=== PATIENT | male | born 2000 | race Caucasian/White ===

== ENCOUNTER 2023-01-03 20:32 | Inpatient (IN) ==
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
[2023-01-03 22:50] LABS: Appearance Urine Clear (Clear); Bilirubin Urine Negative (Negative); Blood Urine Negative (Negative); Color Urine Yellow; Glucose Urine UA Negative (Negative); Ketones Urine Trace (Negative); Leukocyte Esterase Urine Negative (Negative); Nitrite Urine Negative (Negative); Protein Urine Negative (Negative); Specific Gravity Urine 1.014 (1.000-1.030); Urobilinogen Urine Negative (Negative)
[2023-01-03 22:53] LABS: Basophils # (auto) 0.05 K/uL (0-0.2); Basophils % (auto) 0.9 %; Eosinophils # (auto) 0.13 K/uL (0-0.50); Eosinophils % (auto) 2.3 %; Hematocrit (blood only) 45.1 % (42.0-52.0); Hemoglobin 15.6 g/dl (14.0-18.0); Immature Granulocytes # (auto) 0.02 K/uL (0.01-0.20); Immature Granulocytes % (auto) 0.4 %; Lymphocytes # (auto) 2.43 K/uL (1.2-3.4); Lymphocytes % (auto) 42.9 %; Mean Corpuscular Hemoglobin 28.3 pg (25.0-34.0); Mean Corpuscular Hgb Conc 34.6 g/dL (32.0-36.0); Mean Corpuscular Volume 81.9 fL (80.0-100.0); Mean Platelet Volume 9.4 fL (9.4-12.4); Monocytes # (auto) 0.46 K/uL (0.11-0.59); Monocytes % (auto) 8.1 %; Neutrophils # (auto) 2.57 K/uL (1.40-6.50); Neutrophils % (auto) 45.4 %; Platelet Count 295 K/uL (130-400); RDW Standard Deviation 38.1 fL (36.4-46.3); Red Blood Count 5.51 M/uL (4.70-6.10); White Blood Count 5.66 K/ul (4.8-10.8)
[2023-01-03 23:09] LABS: Albumin Globulin Ratio 1.5 (0.9-2); Albumin Level 4.1 gm/dl (3.4-5.0); BUN Creatinine Ratio 11.5 (10-20); Bilirubin,Total 0.9 mg/dl (0.2-1.0); Calcium 8.6 mg/dl (8.6-10.3); Est GFR (African American) 130.4 ml/min; Est GFR (Non-African American) 112.5 ml/min; Globulin 2.8 gm/dl (2.5-4.0); Potassium 3.6 mmol/L (3.5-5.1); Total Protein 6.9 gm/dl (6.0-8.3)
[2023-01-03 23:14] LABS: Acetaminophen < 3 ug/ml (10-30); Salicylate < 3.0 mg/dl (3.0-30)
[2023-01-03 23:15] LABS: Amphetamines+Metham, Urine Neg (Neg); Barbiturates, Urine Neg (Neg); Benzodiazepine, Urine Neg (Neg); Cocaine, Urine Neg (Neg); MDMA (Ecstacy), Urine Neg (Neg); Methadone, Urine Neg (Neg); Opiate, Urine Neg (Neg); Phencyclidine, Urine Neg (Neg)
[2023-01-04] MEDS ORDERED: MAGNESIUM HYDROXIDE SUSP 30 ML UDC PO PRN (00:41)
[2023-01-04] MEDS ORDERED: SODIUM CHLORIDE 0.65% NA SOLN 45 ML (OCEAN) PRN (00:41)
[2023-01-04] MEDS ORDERED: hydrOXYzine HCl 25 MG TAB PO PRN ×2 (00:41)
[2023-01-04] MEDS ORDERED: BISMUTH SUBSALICYLATE LIQD 236 ML PO PRN (00:41)
[2023-01-04] MEDS ORDERED: ACETAMINOPHEN 325 MG TAB PO PRN (00:41)
[2023-01-04] MEDS ORDERED: ALUMINUM/MAGNESIUM SUSP 30 ML UDC PO PRN (00:41)
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
[2023-01-04 17:02] LABS: Vitamin D, 25 Hydrox 20.7 ng/ml (30-100)
--- NOTE | 2023-01-05 08:02 | Psychiatric Progress Note ---
Date of Service January 05, 2023 Impression / Recommendations Impression 22 y/o M, severely depressed, with recent hanging attempt. Despite reporting severe mood and anxiety symptoms, he is very resistant to considering medication treatment for reasons that are, at best, vague. He reports panic episodes as well as chronic, less episodic anxiety. He may well have PTSD, but his limited interaction and communication today make it impossible to assign that diagnosis with much confidence. 01/05/2023: Pt again lying curled in bed with the covers over his head on approach (though I have seen him out of bed at times). He makes very little eye contact and mumbles very quietly. Discussed his low Vitamin D level and the need to treat it, though I told him I very much doubt that doing this alone will have much direct effect on his mood. I again brought up antidepressant medication and my opinion that the reported severity of his depression strongly suggests the necessity of pharmacotherapy and not just psychotherapy (especially in light of his not having gotten much out of his 2 previous attempts at psychotherapy). Several members of the multidisciplinary treatment team noted that their assessments are relatively lacking in usual details because of how challenging it has been to get him to interact. (1) Major depressive disorder, single episode, severe without psychotic features: (2) Panic disorder: (3) Post traumatic stress disorder (PTSD): (4) Suicide attempt by hanging: Plan 01/04/2023: The patient was admitted to the [facility] ([facility] mental health unit) on q15 min checks (behavioral with suicide precautions) for safety. The patient will participate in group, recreational, and milieu therapies and will be offered additional individual and family sessions as clinically appropriate. 01/05/2023: * start ergocalciferol 50,000 IU twice weekly for 8 weeks * recommended trial of antidepressant medication, to which pt is not currently willing to agree 01/04/2023: I discussed a trial of SNRI (namely, duloxetine) since this should be effective for depression, panic, SELVIN, and (if present) PTSD. He was very disinterested in exploring medication options. He did ask for "a referral for CBT". 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, but somewhat half- heartedly, and attempted hanging (also somewhat half-heartedly) prior to presentation Risk Factors Assessment Male: Yes : Yes Do You Have Access To A Gun?: No Health Problems: No Mental Health Diagnoses: Yes Substance Use Disorders: Yes Previous Attempt: Yes Family History of Suicide: Yes Previous Psychiatric Hospitalization: No Hopelessness: Yes Protective Factors Assessment Employed: No Interval History Identifying Information CIPRIANO VU is a 22-year-old M who currently lives in an apartment, has a history of depression, and was admitted on 01/04/23 00:41 on a 201 voluntary commitment for suicide attempt. Chief Complaint "Grmphbl". Review of Systems Sleep Information Total Hours of Sleep: 6.5 Sleep Comments: early admit this AM Meal Information Percent Meal Consumed - Breakfast: 50 Percent Meal Consumed - Lunch: 75 Percent Meal Consumed - Dinner: 100 Subjective Subjective Patient was seen & assessed and interval progress reviewed with treatment team Physical Exam Psychiatric Orientation: oriented to person, oriented to place, oriented to time and + guarded Apperance: appropriately dressed, + disheveled and appeared stated age Eye Contact: + poor eye contact Motor Behavior: + psychomotor retardation Affect: + blunted affect Mood: + depressed mood Thought Process: + concrete thought process Thought Content: + cognitive distortions, reality based without delusions, + hopelessness, + worthlessness and + self deprecation Suicidal Thoughts: + reports suicidal thoughts, + reports suicidal plan and + reports suicidal intent Homicidal Thoughts: denies homicidal thoughts Hallucinations: no auditory hallucinations and no visual hallucinations Cognition: recent memory grossly intact and remote memory grossly intact; + attention not intact and + language not intact Estimated Intelligence: average estimated intelligence Insight: + limited insight Judgment: + poor judgement Vital Signs (Past 24 Hours) Last Vital Signs Temp 36.7 C 01/05/23 06:33 Pulse 91 H 01/05/23 06:34 Resp 16 01/05/23 06:33 BP 109/72 01/05/23 06:34 Pulse Ox 98 01/04/23 02:48 O2 Del Method Room Air 01/04/23 02:48 Results & Data ([facility]) Laboratory Results Laboratory Results - last 24 hr 01/04/23 15:58 Vitamin B12 230 25-OH Vitamin D Total 20.7 L Folate 15.52 Current Inpatient Medications Current Inpatient Medications: Current Inpatient Medications Acetaminophen (Acetaminophen 325 Mg Tab) 650 mg PO Q4H PRN PRN Reason: Headache or Minor Fever Stop: 02/03/23 00:40 Al Hydrox/Mg Hydrox/Simethicone (Aluminum/Magnesium Susp 30 Ml Udc) 30 ml PO Q4H PRN PRN Reason: GI Upset Stop: 02/03/23 00:40 Bismuth Subsalicylate (Bismuth Subsalicylate Liqd 236 Ml) 15 ml PO PRN PRN PRN Reason: Loose Stool Stop: 02/03/23 00:40 Ergocalciferol (Ergocalciferol 50,000 Units 1250 Mcg Cap) 50,000 units PO MoTh@0800 JUANJOSE Stop: 02/04/23 07:59 Hydroxyzine HCl (Hydroxyzine Hcl 25 Mg Tab) 50 mg PO HSZ PRN PRN Reason: Insomnia Stop: 02/03/23 00:40 Last Admin: 01/04/23 22:58 Dose: 50 mg Hydroxyzine HCl (Hydroxyzine Hcl 25 Mg Tab) 25 mg PO Q4H PRN PRN Reason: Anxiety Stop: 02/03/23 00:40 Magnesium Hydroxide (Magnesium Hydroxide Susp 30 Ml Udc) 30 ml PO DAILY PRN PRN Reason: Constipation Stop: 02/03/23 00:40 Sodium Chloride (Sodium Chloride 0.65% Na Soln 45 Ml ([place])) 1 - 2 sprays NA PRN PRN PRN Reason: Nasal Dryness/Congestion Stop: 02/03/23 00:40 Mental Health & Subst Abuse Tx Therapist Name of Therapist: KADEEM Post Discharge Appointments Primary Care Physician Name Of Family Doctor/PCP: JOSE (4) Suicide attempt by hanging Encounter type: initial encounter Qualified Code(s): T71.162A - Asphyxiation due to hanging, intentional self-harm, initial encounter
[2023-01-05] MEDS: ERGOCALCIFEROL 50,000 UNITS 1250 MCG CAP PO SCH (08:32)
--- NOTE | 2023-01-06 07:42 | Psychiatric Progress Note ---
Date of Service January 06, 2023 Impression / Recommendations Impression 22 y/o M, severely depressed, with recent hanging attempt. Despite reporting severe mood and anxiety symptoms, he is very resistant to considering medication treatment for reasons that are, at best, vague. He reports panic episodes as well as chronic, less episodic anxiety. He may well have PTSD, but his limited interaction and communication today make it impossible to assign that diagnosis with much confidence. 01/06/2023: Pt much more communicative today and apologizes for having been so reticent before. Pt speaks of his fraught relationship with his father at some length as well as the loss of his mother. 01/05/2023: Pt again lying curled in bed with the covers over his head on approach (though I have seen him out of bed at times). He makes very little eye contact and mumbles very quietly. Discussed his low Vitamin D level and the need to treat it, though I told him I very much doubt that doing this alone will have much direct effect on his mood. I again brought up antidepressant medication and my opinion that the reported severity of his depression strongly suggests the necessity of pharmacotherapy and not just psychotherapy (especially in light of his not having gotten much out of his 2 previous attempts at psychotherapy). Several members of the multidisciplinary treatment team noted that their assessments are relatively lacking in usual details because of how challenging it has been to get him to interact. (1) Major depressive disorder, single episode, severe without psychotic features: (2) Panic disorder: (3) Post traumatic stress disorder (PTSD): (4) Suicide attempt by hanging: Plan The patient was admitted to the [facility] on q15 min checks (behavioral with suicide precautions) for safety. The patient will participate in group, recreational, and milieu therapies and will be offered additional individual and family sessions as clinically appropriate. 01/06/2023: * continue ergocalciferol 50,000 IU twice weekly for 8 weeks * pt remains disinterested in pursuing medication treatment 01/05/2023: * start ergocalciferol 50,000 IU twice weekly for 8 weeks * recommended trial of antidepressant medication, to which pt is not currently willing to agree 01/04/2023: I discussed a trial of SNRI (namely, duloxetine) since this should be effective for depression, panic, SELVIN, and (if present) PTSD. He was very disinterested in exploring medication options. He did ask for "a referral for CBT". 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, but somewhat half- heartedly, and attempted hanging (also somewhat half-heartedly) prior to presentation Risk Factors Assessment Male: Yes : Yes Do You Have Access To A Gun?: No Health Problems: No Mental Health Diagnoses: Yes Substance Use Disorders: Yes Previous Attempt: Yes Family History of Suicide: Yes Previous Psychiatric Hospitalization: No Hopelessness: Yes Protective Factors Assessment Employed: No Interval History Identifying Information CIPRIANO VU is a 22-year-old M who currently lives in an apartment, has a history of depression, and was admitted on 01/04/23 00:41 on a 201 voluntary commitment for suicide attempt. Chief Complaint "I apologize for not wanting to talk yesterday". Review of Systems Sleep Information Total Hours of Sleep: 6 Sleep Comments: early admit this AM Meal Information Percent Meal Consumed - Breakfast: 75 Percent Meal Consumed - Lunch: 100 Percent Meal Consumed - Dinner: 100 Subjective Subjective Patient was seen & assessed and interval progress reviewed with treatment team Physical Exam Psychiatric Orientation: oriented to person, oriented to place, oriented to time and + guarded Apperance: appropriately dressed, + disheveled and appeared stated age Eye Contact: + fair eye contact Motor Behavior: + psychomotor retardation Speech: normal rate/rhythm/volume of speech Affect: + constricted affect Mood: + depressed mood Thought Process: + concrete thought process Thought Content: + cognitive distortions, reality based without delusions, + hopelessness, + worthlessness and + self deprecation Suicidal Thoughts: + reports suicidal thoughts, + reports suicidal plan and + reports suicidal intent Homicidal Thoughts: denies homicidal thoughts Hallucinations: no auditory hallucinations and no visual hallucinations Cognition: recent memory grossly intact, remote memory grossly intact, attention grossly intact and language grossly intact Estimated Intelligence: average estimated intelligence Insight: + limited insight Judgment: + poor judgement Vital Signs (Past 24 Hours) Last Vital Signs Temp 36.5 C 01/06/23 06:00 Pulse 84 01/06/23 06:35 Resp 14 01/06/23 06:00 BP 105/70 01/06/23 06:35 Pulse Ox 98 01/04/23 02:48 O2 Del Method Room Air 01/04/23 02:48 Results & Data ([facility]) Current Inpatient Medications Current Inpatient Medications: Current Inpatient Medications Acetaminophen (Acetaminophen 325 Mg Tab) 650 mg PO Q4H PRN PRN Reason: Headache or Minor Fever Stop: 02/03/23 00:40 Al Hydrox/Mg Hydrox/Simethicone (Aluminum/Magnesium Susp 30 Ml Udc) 30 ml PO Q4H PRN PRN Reason: GI Upset Stop: 02/03/23 00:40 Bismuth Subsalicylate (Bismuth Subsalicylate Liqd 236 Ml) 15 ml PO PRN PRN PRN Reason: Loose Stool Stop: 02/03/23 00:40 Ergocalciferol (Ergocalciferol 50,000 Units 1250 Mcg Cap) 50,000 units PO MoTh@0800 JUANJOSE Stop: 02/04/23 07:59 Last Admin: 01/05/23 08:32 Dose: 50,000 units Hydroxyzine HCl (Hydroxyzine Hcl 25 Mg Tab) 50 mg PO HSZ PRN PRN Reason: Insomnia Stop: 02/03/23 00:40 Last Admin: 01/04/23 22:58 Dose: 50 mg Hydroxyzine HCl (Hydroxyzine Hcl 25 Mg Tab) 25 mg PO Q4H PRN PRN Reason: Anxiety Stop: 02/03/23 00:40 Magnesium Hydroxide (Magnesium Hydroxide Susp 30 Ml Udc) 30 ml PO DAILY PRN PRN Reason: Constipation Stop: 02/03/23 00:40 Sodium Chloride (Sodium Chloride 0.65% Na Soln 45 Ml ([place])) 1 - 2 sprays NA PRN PRN PRN Reason: Nasal Dryness/Congestion Stop: 02/03/23 00:40 Mental Health & Subst Abuse Tx Therapist Name of Therapist: KADEEM Post Discharge Appointments Primary Care Physician Name Of Family Doctor/PCP: JSOE (4) Suicide attempt by hanging Encounter type: initial encounter Qualified Code(s): T71.162A - Asphyxiation due to hanging, intentional self-harm, initial encounter
--- NOTE | 2023-01-07 16:22 | Psychiatric Progress Note ---
Date of Service January 07, 2023 Impression / Recommendations Impression 22 y/o M, severely depressed, with recent hanging attempt. Diagnostically consistent with MDD, recurrent as well as SELVIN and possible PTSD with recent contribution of worsening mood in context of reminders of past trauma. 01/07/2023: Remains very depressed but starting to participate more and able to speak more about depression, recent alcohol use and past trauma. Not interested in any medications at this time but able to discuss options in case he changes his mind in the future. Needs a new PCP. (1) Major depressive disorder, single episode, severe without psychotic features: (2) Panic disorder: (3) Post traumatic stress disorder (PTSD): (4) Suicide attempt by hanging: Plan 01/07/2023: Continue current treatment plan, ongoing motivational interviewing. Agreeable to [facility] for CBT. 01/06/2023: * continue ergocalciferol 50,000 IU twice weekly for 8 weeks * pt remains disinterested in pursuing medication treatment 01/05/2023: * start ergocalciferol 50,000 IU twice weekly for 8 weeks * recommended trial of antidepressant medication, to which pt is not currently willing to agree 01/04/2023: The patient was admitted to the [facility] ([facility]) on q15 min checks (behavioral with suicide precautions) for safety. The patient will participate in group, recreational, and milieu therapies and will be offered additional individual and family sessions as clinically appropriate. I discussed a trial of SNRI (namely, duloxetine) since this should be effective for depression, panic, SELVIN, and (if present) PTSD. He was very disinterested in exploring medication options. He did ask for "a referral for CBT". Inventory Assets Strengths: voluntary, intelligent Needs: safety and stabilization, medication trial, additional coping skills, increased outpatient services Suicide Risk Level Suicide Risk Level: High-Moderate (q15 min suicide checks) (suicide attempt prior to admission with ongoing depression but feels safe in the hospital and agrees to alert nursing if he feels unsafe or requires additional support) Risk Factors Assessment Male: Yes : Yes Do You Have Access To A Gun?: No Health Problems: No Mental Health Diagnoses: Yes Substance Use Disorders: Yes Previous Attempt: Yes Family History of Suicide: Yes Previous Psychiatric Hospitalization: No Hopelessness: Yes Protective Factors Assessment Employed: No Interval History Identifying Information CIPRIANO VU is a 22-year-old M who currently lives in an apartment, has a history of depression, and was admitted on 01/04/23 00:41 on a 201 voluntary commitment for suicide attempt. Chief Complaint "I'm ok". Review of Systems Sleep Information Total Hours of Sleep: 6 Sleep Comments: early admit this AM Meal Information Percent Meal Consumed - Breakfast: 75 Percent Meal Consumed - Lunch: 100 Percent Meal Consumed - Dinner: 100 Subjective Subjective Patient was seen & assessed and interval progress reviewed with treatment team nursing and social work. Had family meeting with his dad and was able to discuss past trauma and his dad seemed supportive. Reviewed recent alcohol use which he was using to self-medicate so that he could feel "relief". Denies current cravings for alcohol and feels he will be able to avoid use after discharge without issue. Reviewed MAT options and therapy. Reviewed recent depressive symptoms which he feels were due to conflict with his dad because he was struggling to communicate about past trauma and recent stressor of his grandfather's cancer diagnosis. Not interested in any medication options but agreeable to discussion about SSRI vs SNRI vs Wellbutrin. Remains motivated for IOP and wants to work on "talking more with my family" before trying a medication. Some difficulty sleeping last night but attending groups today, less isolative to his room. Physical Exam Psychiatric Orientation: oriented x 3 and + guarded Apperance: appropriately dressed and appropriately groomed Eye Contact: + fair eye contact Motor Behavior: no abnormal motor movements Speech: normal rate/rhythm/volume of speech Affect: + constricted affect Mood: + depressed mood Thought Process: + concrete thought process Thought Content: + cognitive distortions, reality based without delusions and + hopelessness Suicidal Thoughts: denies suicidal plan and denies suicidal intent; + reports suicidal thoughts (intermittent) Homicidal Thoughts: denies homicidal thoughts Hallucinations: no auditory hallucinations and no visual hallucinations Cognition: recent memory grossly intact, remote memory grossly intact, attention grossly intact and language grossly intact Estimated Intelligence: average estimated intelligence Insight: + limited insight Judgment: + limited judgement Vital Signs (Past 24 Hours) Last Vital Signs Temp 36.4 C L 01/07/23 06:00 Pulse 83 01/07/23 06:50 Resp 16 01/07/23 06:00 BP 97/60 L 01/07/23 06:50 Pulse Ox 98 01/04/23 02:48 O2 Del Method Room Air 01/04/23 02:48 Results & Data ([facility]) Current Inpatient Medications Current Inpatient Medications: Current Inpatient Medications Acetaminophen (Acetaminophen 325 Mg Tab) 650 mg PO Q4H PRN PRN Reason: Headache or Minor Fever Stop: 02/03/23 00:40 Al Hydrox/Mg Hydrox/Simethicone (Aluminum/Magnesium Susp 30 Ml Udc) 30 ml PO Q4H PRN PRN Reason: GI Upset Stop: 02/03/23 00:40 Bismuth Subsalicylate (Bismuth Subsalicylate Liqd 236 Ml) 15 ml PO PRN PRN PRN Reason: Loose Stool Stop: 02/03/23 00:40 Ergocalciferol (Ergocalciferol 50,000 Units 1250 Mcg Cap) 50,000 units PO MoTh@0800 JAUNJOSE Stop: 02/04/23 07:59 Last Admin: 01/05/23 08:32 Dose: 50,000 units Hydroxyzine HCl (Hydroxyzine Hcl 25 Mg Tab) 50 mg PO HSZ PRN PRN Reason: Insomnia Stop: 02/03/23 00:40 Last Admin: 01/04/23 22:58 Dose: 50 mg Hydroxyzine HCl (Hydroxyzine Hcl 25 Mg Tab) 25 mg PO Q4H PRN PRN Reason: Anxiety Stop: 02/03/23 00:40 Magnesium Hydroxide (Magnesium Hydroxide Susp 30 Ml Udc) 30 ml PO DAILY PRN PRN Reason: Constipation Stop: 02/03/23 00:40 Sodium Chloride (Sodium Chloride 0.65% Na Soln 45 Ml ([place])) 1 - 2 sprays NA PRN PRN PRN Reason: Nasal Dryness/Congestion Stop: 02/03/23 00:40 Mental Health & Subst Abuse Tx Therapist Name of Therapist: KADEEM National Account Executive Name of National Account Executive: [employer]ocacy - Coco Peña Phone Number for National Account Executive: [phone] Date of Appointment with National Account Executive: 01/11/21 Time of Appointment with National Account Executive: 1:00 PM Case Management Appointment Comment: Virtual meeting invitation sent to your [employer] email. Post Discharge Appointments Primary Care Physician Name Of Family Doctor/PCP: Nj Primary Care Provider Appointment Comment: Call to establish new PCP if needed. Contact Information Discharge Discharge Address: [address], [address], [place] [address] (4) Suicide attempt by hanging Encounter type: initial encounter Qualified Code(s): T71.162A - Asphyxiation due to hanging, intentional self-harm, initial encounter
--- NOTE | 2023-01-08 08:38 | Psychiatric Progress Note ---
Date of Service January 08, 2023 Impression / Recommendations Impression 22 y/o M, severely depressed, with recent hanging attempt. Diagnostically consistent with MDD, recurrent as well as SELVIN and PTSD with recent contribution of worsening mood in context of reminders of past trauma. 01/08/2023: Depression starting to improve, still with anxiety but denies SI today and more interactive with peers. Continues to decline medication options, prefers to start with therapy. Ongoing clear trauma component to diagnostic picture. (1) Major depressive disorder, single episode, severe without psychotic features: (2) Panic disorder: (3) Post traumatic stress disorder (PTSD): (4) Suicide attempt by hanging: Plan 01/08/2023: Continue current tx plan. 01/07/2023: Continue current treatment plan, ongoing motivational interviewing. Agreeable to [facility] for CBT. 01/06/2023: * continue ergocalciferol 50,000 IU twice weekly for 8 weeks * pt remains disinterested in pursuing medication treatment 01/05/2023: * start ergocalciferol 50,000 IU twice weekly for 8 weeks * recommended trial of antidepressant medication, to which pt is not currently willing to agree 01/04/2023: The patient was admitted to the [facility] ([facility] [place]) on q15 min checks (behavioral with suicide precautions) for safety. The patient will participate in group, recreational, and milieu therapies and will be offered additional individual and family sessions as clinically appropriate. I discussed a trial of SNRI (namely, duloxetine) since this should be effective for depression, panic, SELVIN, and (if present) PTSD. He was very disinterested in exploring medication options. He did ask for "a referral for CBT". 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, but somewhat half-hea rtedly, and attempted hanging (also somewhat half-heartedly) prior to presentation Risk Factors Assessment Male: Yes : Yes Do You Have Access To A Gun?: No Health Problems: No Mental Health Diagnoses: Yes Substance Use Disorders: Yes Previous Attempt: Yes Family History of Suicide: Yes Previous Psychiatric Hospitalization: No Hopelessness: Yes Protective Factors Assessment Employed: No Interval History Identifying Information CIPRIANO VU is a 22-year-old M who currently lives in an apartment, has a history of depression, and was admitted on 01/04/23 00:41 on a 201 voluntary commitment for suicide attempt. Chief Complaint "A little anxious". Review of Systems Sleep Information Total Hours of Sleep: 6.5 Sleep Comments: Meal Information Percent Meal Consumed - Breakfast: 75 Percent Meal Consumed - Lunch: 100 Percent Meal Consumed - Dinner: 100 Subjective Subjective Patient was seen & assessed and interval progress reviewed with treatment team nursing and social work. Has been out of his room, participating in groups, watched a movie with peers, and more engaged overall. Had some difficulty sleeping last night in part due to fire alarm waking him up and bad dream about past trauma. Discussed night terrors and he has these ranging from once to a few times per week. Discussed option to try prazosin but he declines, prefers to use chamomile tea. Using green tea during the day to try to cope with anxiety. Has been having more "ruminative" thoughts today "about the future" in terms of school and "difficult conversations I'll be having with family". Finds distraction and working on puzzles helps. Discussed other coping strategies he could try. Denies SI. Physical Exam Psychiatric Orientation: oriented x 3 Apperance: appropriately dressed and appropriately groomed Eye Contact: good eye contact Motor Behavior: no abnormal motor movements Speech: normal rate/rhythm/volume of speech Affect: + anxious affect Mood: + depressed mood and + anxious mood Thought Process: goal directed thought process Thought Content: + cognitive distortions and reality based without delusions Suicidal Thoughts: denies suicidal thoughts, denies suicidal plan and denies suicidal intent Homicidal Thoughts: denies homicidal thoughts Hallucinations: no auditory hallucinations and no visual hallucinations Cognition: recent memory grossly intact, remote memory grossly intact, attention grossly intact and language grossly intact Estimated Intelligence: average estimated intelligence Insight: + limited insight Judgment: + fair judgement Vital Signs (Past 24 Hours) Last Vital Signs Temp 37.2 C 01/08/23 06:00 Pulse 84 01/08/23 06:00 Resp 18 01/08/23 06:00 BP 108/66 01/08/23 06:33 Pulse Ox 98 01/08/23 06:00 O2 Del Method Room Air 01/08/23 06:00 Results & Data ([facility]) Current Inpatient Medications Current Inpatient Medications: Current Inpatient Medications Acetaminophen (Acetaminophen 325 Mg Tab) 650 mg PO Q4H PRN PRN Reason: Headache or Minor Fever Stop: 02/03/23 00:40 Al Hydrox/Mg Hydrox/Simethicone (Aluminum/Magnesium Susp 30 Ml Udc) 30 ml PO Q4H PRN PRN Reason: GI Upset Stop: 02/03/23 00:40 Bismuth Subsalicylate (Bismuth Subsalicylate Liqd 236 Ml) 15 ml PO PRN PRN PRN Reason: Loose Stool Stop: 02/03/23 00:40 Ergocalciferol (Ergocalciferol 50,000 Units 1250 Mcg Cap) 50,000 units PO MoTh@0800 JUANJOSE Stop: 02/04/23 07:59 Last Admin: 01/05/23 08:32 Dose: 50,000 units Hydroxyzine HCl (Hydroxyzine Hcl 25 Mg Tab) 50 mg PO HSZ PRN PRN Reason: Insomnia Stop: 02/03/23 00:40 Last Admin: 01/04/23 22:58 Dose: 50 mg Hydroxyzine HCl (Hydroxyzine Hcl 25 Mg Tab) 25 mg PO Q4H PRN PRN Reason: Anxiety Stop: 02/03/23 00:40 Magnesium Hydroxide (Magnesium Hydroxide Susp 30 Ml Udc) 30 ml PO DAILY PRN PRN Reason: Constipation Stop: 02/03/23 00:40 Sodium Chloride (Sodium Chloride 0.65% Na Soln 45 Ml ([place])) 1 - 2 sprays NA PRN PRN PRN Reason: Nasal Dryness/Congestion Stop: 02/03/23 00:40 Mental Health & Subst Abuse Tx Therapist Name of Therapist: KADEEM Epic Willow Analyst Name of Epic Willow Analyst: [employer] Advoc[employer] - Coco Peña Phone Number for Epic Willow Analyst: [phone] Date of Appointment with Epic Willow Analyst: 01/11/21 Time of Appointment with Epic Willow Analyst: 1:00 PM Case Management Appointment Comment: Virtual meeting invitation sent to your [employer] email. Post Discharge Appointments Primary Care Physician Name Of Family Doctor/PCP: Nj Primary Care Provider Appointment Comment: Call to establish new PCP if needed. Contact Information Discharge Discharge Address: [address], [address], [place] [address] (4) Suicide attempt by hanging Encounter type: initial encounter Qualified Code(s): T71.162A - Asphyxiation due to hanging, intentional self-harm, initial encounter
[2023-01-09] MEDS: ERGOCALCIFEROL 50,000 UNITS 1250 MCG CAP PO SCH (09:00)
--- NOTE | 2023-01-09 16:26 | Psychiatric Progress Note ---
Date of Service January 09, 2023 Impression / Recommendations Impression 22 y/o M, severely depressed, with recent hanging attempt. Diagnostically consistent with MDD, recurrent as well as SELVIN and PTSD with recent contribution of worsening mood in context of reminders of past trauma. 01/09/2023: Mood continuing to slowly improve with no SI and lessening of anxiety today. Future-oriented. Able to speak more to triggers and driving factors for his suicide attempt. Motivated to start IOP and considering option for some family therapy. (1) Major depressive disorder, single episode, severe without psychotic features: (2) Panic disorder: (3) Post traumatic stress disorder (PTSD): (4) Suicide attempt by hanging: Plan 01/09/2023: Continue current treatment plan. 01/08/2023: Continue current tx plan. 01/07/2023: Continue current treatment plan, ongoing motivational interviewing. Agreeable to IOP for CBT. 01/06/2023: * continue ergocalciferol 50,000 IU twice weekly for 8 weeks * pt remains disinterested in pursuing medication treatment 01/05/2023: * start ergocalciferol 50,000 IU twice weekly for 8 weeks * recommended trial of antidepressant medication, to which pt is not currently willing to agree 01/04/2023: The patient was admitted to the [facility] ([facility] mental health unit) on q15 min checks (behavioral with suicide precautions) for safety. The patient will participate in group, recreational, and milieu t herapies and will be offered additional individual and family sessions as clinically appropriate. I discussed a trial of SNRI (namely, duloxetine) since this should be effective for depression, panic, SELVIN, and (if present) PTSD. He was very disinterested in exploring medication options. He did ask for "a referral for CBT". Inventory Assets Strengths: voluntary, intelligent Needs: safety and stabilization, medication trial, additional coping skills, increased outpatient services Suicide Risk Level Suicide Risk Level: Moderate (q15 min suicide checks) (suicide attempt prior to admission but denies SI, mood improving andfeels safe in the hospital and agrees to alert nursing if he feels unsafe or requires additional support) Risk Factors Assessment Male: Yes : Yes Do You Have Access To A Gun?: No Health Problems: No Mental Health Diagnoses: Yes Substance Use Disorders: Yes Previous Attempt: Yes Family History of Suicide: Yes Previous Psychiatric Hospitalization: No Hopelessness: Yes Protective Factors Assessment Employed: No Interval History Identifying Information CIPRIANO VU is a 22-year-old M who currently lives in an apartment, has a history of depression, and was admitted on 01/04/23 00:41 on a 201 voluntary commitment for suicide attempt. Chief Complaint "I'm pretty good". Review of Systems Sleep Information Total Hours of Sleep: 6.5 Meal Information Percent Meal Consumed - Breakfast: 100 Percent Meal Consumed - Lunch: 100 Percent Meal Consumed - Dinner: 100 Subjective Subjective Patient was seen & assessed and interval progress reviewed with treatment team nursing and social work. Attending all groups. Brighter affect. Feels his mood is "pretty good' today, still with some anxiety but less than yesterday. Reviewed what he feels has helped him feel less depressed compared to suicide attempt prior to admission and feels that getting back into a routine with eating three meals a day and sleeping a regular schedule has been very helpful. He also feels that his social isolation prior to admission was making things worse and has found socializing on the unit helpful. Also feels that he's start ed to address the tension with his dad after their family meeting and plans to continue talking with him more about his past trauma. Denies SI. Physical Exam Psychiatric Orientation: oriented x 3 Apperance: appropriately dressed and appropriately groomed Eye Contact: good eye contact Motor Behavior: no abnormal motor movements Speech: normal rate/rhythm/volume of speech Affect: + anxious affect Mood: + anxious mood Thought Process: goal directed thought process Thought Content: reality based without delusions Suicidal Thoughts: denies suicidal thoughts, denies suicidal plan and denies suicidal intent Homicidal Thoughts: denies homicidal thoughts Hallucinations: no auditory hallucinations and no visual hallucinations Cognition: recent memory grossly intact, remote memory grossly intact, attention grossly intact and language grossly intact Estimated Intelligence: average estimated intelligence Insight: + fair insight Judgment: + fair judgement Vital Signs (Past 24 Hours) Last Vital Signs Temp 36.6 C 01/09/23 06:26 Pulse 83 01/09/23 06:26 Resp 16 01/09/23 06:26 BP 101/61 01/09/23 06:26 Pulse Ox 98 01/08/23 06:00 O2 Del Method Room Air 01/08/23 06:00 Results & Data ([facility]) Current Inpatient Medications Current Inpatient Medications: Current Inpatient Medications Acetaminophen (Acetaminophen 325 Mg Tab) 650 mg PO Q4H PRN PRN Reason: Headache or Minor Fever Stop: 02/03/23 00:40 Al Hydrox/Mg Hydrox/Simethicone (Aluminum/Magnesium Susp 30 Ml Udc) 30 ml PO Q4H PRN PRN Reason: GI Upset Stop: 02/03/23 00:40 Bismuth Subsalicylate (Bismuth Subsalicylate Liqd 236 Ml) 15 ml PO PRN PRN PRN Reason: Loose Stool Stop: 02/03/23 00:40 Ergocalciferol (Ergocalciferol 50,000 Units 1250 Mcg Cap) 50,000 units PO MoTh@0800 JUANJOSE Stop: 02/04/23 07:59 Last Admin: 01/05/23 08:32 Dose: 50,000 units Hydroxyzine HCl (Hydroxyzine Hcl 25 Mg Tab) 50 mg PO HSZ PRN PRN Reason: Insomnia Stop: 02/03/23 00:40 Last Admin: 01/04/23 22:58 Dose: 50 mg Hydroxyzine HCl (Hydroxyzine Hcl 25 Mg Tab) 25 mg PO Q4H PRN PRN Reason: Anxiety Stop: 02/03/23 00:40 Magnesium Hydroxide (Magnesium Hydroxide Susp 30 Ml Udc) 30 ml PO DAILY PRN PRN Reason: Constipation Stop: 02/03/23 00:40 Sodium Chloride (Sodium Chloride 0.65% Na Soln 45 Ml ([place])) 1 - 2 sprays NA PRN PRN PRN Reason: Nasal Dryness/Congestion Stop: 02/03/23 00:40 Mental Health & Subst Abuse Tx Therapist Name of Therapist: KADEEM Enterprise Application Administrator Name of Enterprise Application Administrator: [facility] Pe[facility] Phone Number for Enterprise Application Administrator: [phone] Date of Appointment with Enterprise Application Administrator: 01/11/21 Time of Appointment with Enterprise Application Administrator: 1:00 PM Case Management Appointment Comment: Virtual meeting invitation sent to your [employer] email. Post Discharge Appointments Primary Care Physician Name Of Family Doctor/PCP: [place] Primary Care Provider Appointment Comment: Call to establish new PCP if needed. Contact Information Discharge Discharge Address: [address] [place] [address], [address], [facility] [id number] [phone]) Suicide attempt by hanging Encounter type: initial encounter Qualified Code(s): T71.162A - Asphyxiation due to hanging, intentional self-harm, initial encounter
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
== END 2023-01-10 10:51 | disposition home or self-care (01) | DRG 885 ==
LOC: ED 20:32 → SUATTDRO 01-04 00:41 → MERGE 01-04 00:41 → 3S 01-04 00:41

== ENCOUNTER 2023-03-25 13:35 | Inpatient (IN) ==
[2023-03-25] MEDS ORDERED: CEFEPIME 2,000 MG/20 ML VIAL IV STA (14:00)
[2023-03-25] MEDS ORDERED: SODIUM CHLORIDE 0.9% 1000ML 1,000 ML IV SCH (14:00)
[2023-03-25] MEDS ORDERED: dexAMETHasone**PF** 10 MG/ML VIAL IV ONE (14:11)
[2023-03-25] MEDS ORDERED: KETOROLAC TROMETHAMINE 15 MG/ML VIAL IV STA (14:13)
--- NOTE | 2023-03-25 14:18 | Emergency Department Note ---
Impression & Plan Sepsis, Fever, Acute tonsillitis, Hypokalemia, Hypomagnesemia, Leukocytosis ED Provider Note NAME: CIPRIANO VU AGE: 23 SEX: M : 2000 ARRIVES VIA: Walk-In INFORMANT: [Patient][father] ED PROVIDER(S): [Alexei De La Rosa MD] CHIEF COMPLAINT: Shortness of breath, flulike symptoms HISTORY OF PRESENT ILLNESS: The patient is a 23-year-old male who presents to the ER with 2 days of illness. He began yesterday with a sore throat, body aches and a headache. He went and had his hepatitis B vaccination. Towards evening, he felt quite a bit worse and came to this hospital. Work-up included laboratory testing, a bio fire, strep testing as well as a lumbar puncture. Patient had a white count of 14,000. His bio fire was negative. Strep testing was negative. [place] testing was negative. The lumbar puncture was negative. His illness was thought likely viral. He was discharged. As per the patient and his father. He has worsened since discharge earlier this morning. He has a high fever, he is fatigued, he has a hard time swallowing because of a very sore and swollen throat. He feels short of breath, has body aches. He did take some Motrin 8 hours ago and some Tylenol 2 hours ago. There has been no urinary complaint, no diarrhea, no reported vomiting. No sick contacts. PMHx/PSHx: See Below SOCIAL HISTORY: See Below. PHYSICAL EXAM: GENERAL: Patient is in no acute distress. HEENT: No acute trauma, normocephalic atraumatic, mucous membranes moist, no nasal congestion. Patient does have some ulcers on the side and underside of his tongue. His tonsils are markedly swollen with exudate and erythema. They are touching. No uvular edema. NECK: No stridor, mild bilateral anterior cervical adenopathy, no meningismus, trachea is midline. LUNGS: Clear to auscultation bilaterally, no wheeze, no rhonchi, breath sounds equal. HEART: Tachycardic, regular rhythm, no obvious murmurs. ABDOMEN: Soft, nontender, bowel sounds positive, no peritonitis. EXTREMITIES: No cyanosis or edema, full range of motion of all the joints without pain or difficulty, no signs for acute trauma. NEUROLOGIC: Oriented x 3, no acute motor or sensory deficits, no focal weakness. Somnolent. SKIN: No rash, no jaundice, no diaphoresis. DIFFERENTIAL DIAGNOSIS: Sepsis or bacteremia, peritonsillar abscess, tonsillitis, pneumonia, viral illness, tickborne illness, UTI EMERGENCY DEPARTMENT COURSE/PROCEDURES: Prior/Outside records reviewed: Previous ED note. ECG per my interpretation: Indication was tachycardia and possible sepsis. The ECG shows a sinus tachycardia with a rate of 108. There is some nonspecific ST change. There is no ST elevation, no PVCs. The QTc is 405. Continuous Cardiac Monitoring per my interpretation: An order was placed for continuous cardiac monitoring. The monitor shows a rate of 106 with sinus tachycardia. Critical Care Note: I have personally spent 49 minutes of critical care time in the direct management of this patient. This includes bedside care, interpretation of diagnostic studies, and testing, discussion with consultants, patient, and family members, and other required patient management activities. This 49 minutes is in excess of all separately billable procedures. MEDICAL DECISION MAKING: There is a moderate leukocytosis, this would be consistent with infection. A mild anemia was seen. There was a normal platelet count. Potassium and magnesium were both somewhat low. Lactic acid level was elevated consistent with dehydration and/or sepsis. There was no renal failure. No concerning liver enzyme elevation. Procalcitonin level was elevated consistent with bacterial infection. ECG showed a sinus tachycardia, no obvious ischemia. Cardiac enzyme testing x1 was not consistent with acute cardiac injury. Urinalysis did not show infection. Respiratory bio fire was completely negative. Monoscreen was negative. Lyme disease testing was equivocally pos itive. Tickborne peripheral smear was negative. Chest x-ray per my review did not show mediastinal widening or pneumonia. Soft tissue neck CT did not show any obvious abscess. The study was limited because of the lack of IV contrast. Significant tonsillar swelling and adenopathy was noted. On exam, the patient was febrile and tachycardic. He had significant tonsillar swelling and exudate. He had cervical adenopathy. The patient was aggressively managed. He was given IV saline, 2 L. This amount of fluid qualified as 30 cc/kg based on his actual body weight. He was given IV potassium and IV magnesium. He was given IV Zofran, he received IV cefepime as empiric antibiotic coverage. He received IV Toradol for pain, IV Decadron for the tonsillar swelling. The patient does feel improved, his heart rate has improved. The patient does meet criteria for sepsis. I spoke with the patient and his father. Hospitalization is indicated. I did speak with case management, the on-call hospitalist was consulted. DISPOSITION: Patient's presentation and findings warrant a hospital stay. Past Med/Surg History Medical History Encounter for pre-operative examination History of COVID-19 ~2 years ago, PCP test, not hosp; moderate symptoms>resolved. History of seizure "struck in the congregational during soccer as a child-had one seizure, no issues since then" Major depressive disorder, single episode, severe without psychotic features Panic disorder PTSD (post-traumatic stress disorder) Suicide attempt by hanging hospitalized at [facility] in 01/04/2023 Vitamin D deficiency Surgical History Hx of tooth extraction as child Family History Grandfather (Paternal) Lung cancer Grandmother (Paternal) Myocardial infarction Denies family history of Ovarian cancer Prostate cancer Diabetes Breast cancer Colorectal cancer Stroke Social History Smoking Status: Never smoker Second Hand Exposure: No; Do You Dip or Chew Tobacco: No; Tobacco Cessation Education Requested by Patient: No Hx Alcohol Use: Yes Alcohol type: beer Hx Substance Use: No Preferred Language: Icelandic Communication Ability: Effective Visual Impairment: No Limitations Hearing Ability: Normal 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 Cardiovascular Icu Required: Voice Beliefs That Will Affect Care: None marital status: Single Current Living Situation: Alone Current Living Situation Comment: college student current occupational status: student How many Children do You have: 0 Other Information That Helps Us Care for You: No Feels Safe at Home: Yes Safety Concerns: Feels Safe At This Time Childhood Exposure to Second-Hand Smoke: No caffeine: Yes Dental Care, Regularly: Yes Physical Activity Frequency: Daily Seatbelt Use: always Sunscreen Use: Yes Gender Identity: Male Assistive Devices: None Allergies Allergies Allergy/AdvReac Type Severity Reaction Status Date / Time shellfish derived Allergy Severe throat Verified 03/25/23 15:43 swelling [place] Allergy Severe Swelling Verified 03/25/23 15:43 of Lip/Tongue/Throat Home Meds Home Medications Medication Instructions Recorded Confirmed hydroxyzine HCl 25 mg tablet 25 mg PO BID PRN Insomnia 02/09/23 03/25/23 sucralfate 1 gram tablet 1 g BID 03/24/23 03/25/23 acetaminophen 500 mg tablet 1,000 mg PO Q6H PRN Pain 03/25/23 03/25/23 (Tylenol Extra Strength) ibuprofen 200 mg tablet 400 mg PO Q6H PRN Fever Or Pain 03/25/23 03/25/23 Previous Rx's Medication Instructions Recorded ergocalciferol (vitamin D2) 1,250 1,250 mcg PO .COMPLEX #20 caps 03/07/23 mcg (50,000 unit) capsule Results & Data (ED) Vital Signs Vital Signs - 24 hr 03/25/23 13:39 03/25/23 14:15 03/25/23 14:15 Temperature 39.2 C H Temperature Source Temporal Artery Scan Pulse Rate 116 H 110 H Pulse Rate [Right Finger] 110 H Pulse Rate from SpO2 Sensor Pulse Rhythm Regular Pulse Strength Normal Respiratory Rate 28 H 26 H 26 H Respiratory Effort / Characteristics Labored Respiratory Depth Normal Blood Pressure 114/52 L Blood Pressure [Right Arm] 96/48 L Blood Pressure Mean 72 Blood Pressure Mean [Right Arm] 64 Blood Pressure Position Sitting Pulse Oximetry 99 96 96 Oxygen Delivery Method Room Air Room Air Room Air Sepsis Recent Fever Within 48 Hours No Sepsis New/Unexplained Change in Mental Status No Sepsis Action Taken by Nursing Physician Notified 03/25/23 14:17 03/25/23 14:40 03/25/23 15:06 Temperature Temperature Source Pulse Rate 111 H Pulse Rate [Right Finger] 110 H 98 H Pulse Rate from SpO2 Sensor Pulse Rhythm Pulse Strength Respiratory Rate 26 H 24 Respiratory Effort / Characteristics Non-Labored Respiratory Depth Normal Blood Pressure Blood Pressure [Right Arm] 96/48 L 88/50 L Blood Pressure Mean Blood Pressure Mean [Right Arm] 64 62 Blood Pressure Position Pulse Oximetry 96 96 Oxygen Delivery Method Room Air Room Air Sepsis Recent Fever Within 48 Hours Sepsis New/Unexplained Change in Mental Status Sepsis Action Taken by Nursing 03/25/23 15:19 03/25/23 14:10 03/25/23 14:12 Temperature Temperature Source Pulse Rate 109 H Pulse Rate [Right Finger] 92 H Pulse Rate from SpO2 Sensor Pulse Rhythm Pulse Strength Respiratory Rate 22 23 Respiratory Effort / Characteristics Non-Labored Respiratory Depth Normal Blood Pressure 96/48 L Blood Pressure [Right Arm] 90/37 L Blood Pressure Mean 61 Blood Pressure Mean [Right Arm] 54 Blood Pressure Position Pulse Oximetry 96 Oxygen Delivery Method Room Air Sepsis Recent Fever Within 48 Hours Sepsis New/Unexplained Change in Mental Status Sepsis Action Taken by Nursing 03/25/23 14:12 03/25/23 14:20 03/25/23 14:31 Temperature Temperature Source Pulse Rate 108 H 105 H 104 H Pulse Rate [Right Finger] Pulse Rate from SpO2 Sensor 108 H 105 H 105 H Pulse Rhythm Pulse Strength Respiratory Rate 20 24 18 Respiratory Effort / Characteristics Respiratory Depth Blood Pressure Blood Pressure [Right Arm] Blood Pressure Mean Blood Pressure Mean [Right Arm] Blood Pressure Position Pulse Oximetry 96 97 96 Oxygen Delivery Method Sepsis Recent Fever Within 48 Hours Sepsis New/Unexplained Change in Mental Status Sepsis Action Taken by Nursing 03/25/23 14:40 03/25/23 14:50 03/25/23 15:00 Temperature Temperature Source Pulse Rate 102 H 97 H 98 H Pulse Rate [Right Finger] Pulse Rate from SpO2 Sensor 102 H 98 H 98 H Pulse Rhythm Pulse Strength Respiratory Rate 24 17 24 Respiratory Effort / Characteristics Respiratory Depth Blood Pressure Blood Pressure [Right Arm] Blood Pressure Mean Blood Pressure Mean [Right Arm] Blood Pressure Position Pulse Oximetry 96 97 96 Oxygen Delivery Method Sepsis Recent Fever Within 48 Hours Sepsis New/Unexplained Change in Mental Status Sepsis Action Taken by Nursing 03/25/23 15:05 03/25/23 15:05 03/25/23 15:10 Temperature Temperature Source Pulse Rate 97 H 102 H Pulse Rate [Right Finger] Pulse Rate from SpO2 Sensor 98 H 103 H Pulse Rhythm Pulse Strength Respiratory Rate 20 20 Respiratory Effort / Characteristics Respiratory Depth Blood Pressure 88/50 L Blood Pressure [Right Arm] Blood Pressure Mean 68 Blood Pressure Mean [Right Arm] Blood Pressure Position Pulse Oximetry 96 95 Oxygen Delivery Method Sepsis Recent Fever Within 48 Hours Sepsis New/Unexplained Change in Mental Status Sepsis Action Taken by Nursing 03/25/23 15:19 03/25/23 15:19 03/25/23 15:20 Temperature Temperature Source Pulse Rate 96 H 90 Pulse Rate [Right Finger] Pulse Rate from SpO2 Sensor 94 H 90 Pulse Rhythm Pulse Strength Respiratory Rate 21 20 Respiratory Effort / Characteristics Respiratory Depth Blood Pressure 90/37 L Blood Pressure [Right Arm] Blood Pressure Mean 56 Blood Pressure Mean [Right Arm] Blood Pressure Position Pulse Oximetry 96 96 Oxygen Delivery Method Sepsis Recent Fever Within 48 Hours Sepsis New/Unexplained Change in Mental Status Sepsis Action Taken by Nursing 03/25/23 15:30 03/25/23 15:40 03/25/23 15:50 Temperature Temperature Source Pulse Rate 89 94 H 89 Pulse Rate [Right Finger] Pulse Rate from SpO2 Sensor 89 93 H 89 Pulse Rhythm Pulse Strength Respiratory Rate 21 20 20 Respiratory Effort / Characteristics Respiratory Depth Blood Pressure Blood Pressure [Right Arm] Blood Pressure Mean Blood Pressure Mean [Right Arm] Blood Pressure Position Pulse Oximetry 96 96 96 Oxygen Delivery Method Sepsis Recent Fever Within 48 Hours Sepsis New/Unexplained Change in Mental Status Sepsis Action Taken by Nursing 03/25/23 15:53 03/25/23 15:53 Temperature Temperature Source Pulse Rate 90 Pulse Rate [Right Finger] Pulse Rate from SpO2 Sensor 88 Pulse Rhythm Pulse Strength Respiratory Rate 21 Respiratory Effort / Characteristics Respiratory Depth Blood Pressure 100/61 Blood Pressure [Right Arm] Blood Pressure Mean 69 Blood Pressure Mean [Right Arm] Blood Pressure Position Pulse Oximetry 97 Oxygen Delivery Method Sepsis Recent Fever Within 48 Hours Sepsis New/Unexplained Change in Mental Status Sepsis Action Taken by Longterm Medications Current Medication List: was personally reviewed by me Laboratory Data Attestation: I reviewed the patient's lab results. 03/25/23 14:13 03/25/23 14:13 Lab Results 03/25/23 03/25/23 03/25/23 Range/Units 14:13 14:13 14:13 WBC 17.10 H (4.8-10.8) K/ul RBC 4.74 (4.70-6.10) M/uL Hgb 13.8 L (14.0-18.0) g/dl Hct 39.2 L (42.0-52.0) % MCV 82.7 (80.0-100.0) fL MCH 29.1 (25.0-34.0) pg MCHC 35.2 (32.0-36.0) g/dL RDW Std Deviation 37.6 (36.4-46.3) fL RDW Coeff of Paul 12.4 (11.5-14.5) % Plt Count 181 (130-400) K/uL MPV 10.0 (9.4-12.4) fL Immature Gran % (Auto) 0.8 % Neut % (Auto) 88.3 % Lymph % (Auto) 4.4 % [place] % (Auto) 6.2 % Eos % (Auto) 0.0 % Baso % (Auto) 0.3 % Neut # (Auto) 15.10 H (1.40-6.50) K/uL Lymph # (Auto) 0.76 L (1.2-3.4) K/uL [place] # (Auto) 1.06 H (0.11-0.59) K/uL Eos # (Auto) 0.00 (0-0.50) K/uL Baso # (Auto) 0.05 (0-0.2) K/uL Immature Gran # (Auto) 0.13 (0.01-0.20) K/uL Sodium 136 (136-145) mmol/L Potassium 3.0 L (3.5-5.1) mmol/L Chloride 108 H (98-107) mmol/L Carbon Dioxide 21 (21-32) mmol/L Anion Gap 7 (3-11) BUN 12 (6-23) mg/dl Creatinine 1.15 (0.6-1.4) mg/dl Est Cr Clr Drug Dosing 84.4 ml/min Est GFR ( Amer) 104.1 ml/min Est GFR (Non-Af Amer) 89.8 ml/min BUN/Creatinine Ratio 10.4 (10-20) Glucose 187 H (70-99(Fasting)) mg/dl Lactate (0.4-2.0) mmol/L Calcium 8.5 L (8.6-10.3) mg/dl Magnesium 1.6 L (1.7-2.4) mg/dl Total Bilirubin 0.7 (0.2-1.0) mg/dl Direct Bilirubin 0.1 (0-0.2) mg/dl AST 26 (13-39) U/L ALT 17 (7-52) U/L Alkaline Phosphatase 44 (34-104) U/L Troponin I High Sens 4.2 (0-20) pg/ml Total Protein 6.2 (6.0-8.3) gm/dl Albumin 3.7 (3.4-5.0) gm/dl Procalcitonin 6.53 H (0-0.5) ng/ml Adenovirus (PCR) (NotDetected) Anaplasma Smear See Comment Babesia Smear See Comment B. pertussis DNA (PCR) (NotDetected) B.parapertussis DNA PCR (NotDetected) Lyme Disease IgG Ab Negative (Negative) Lyme Disease IgM Ab Equivocal A (Negative) C. pneumoniae DNA (PCR) (NotDetected) Coronavirus OC43 (PCR) (NotDetected) Coronavirus HKU1 (PCR) (NotDetected) Coronavirus 229E (PCR) (NotDetected) SARS-CoV-2 (PCR) (NotDetected) Coronavirus NL63 (PCR) (NotDetected) Monoscreen Negative (Negative) Human Metapneumovir PCR (NotDetected) Influenza Type A (PCR) (NotDetected) Influenza Type B (PCR) (NotDetected) M. pneumoniae (PCR) (NotDetected) Parainfluenza 1 (PCR) (NotDetected) Parainfluenza 2 (PCR) (NotDetected) Parainfluenza 3 (PCR) (NotDetected) Parainfluenza 4 (PCR) (NotDetected) RSV (PCR) (NotDetected) Entero/Rhino (PCR) (NotDetected) 03/25/23 03/25/23 Range/Units 14:22 14:25 WBC (4.8-10.8) K/ul RBC (4.70-6.10) M/uL Hgb (14.0-18.0) g/dl Hct (42.0-52.0) % MCV (80.0-100.0) fL MCH (25.0-34.0) pg MCHC (32.0-36.0) g/dL RDW Std Deviation (36.4-46.3) fL RDW Coeff of Paul (11.5-14.5) % Plt Count (130-400) K/uL MPV (9.4-12.4) fL Immature Gran % (Auto) % Neut % (Auto) % Lymph % (Auto) % [place] % (Auto) % Eos % (Auto) % Baso % (Auto) % Neut # (Auto) (1.40-6.50) K/uL Lymph # (Auto) (1.2-3.4) K/uL [place] # (Auto) (0.11-0.59) K/uL Eos # (Auto) (0-0.50) K/uL Baso # (Auto) (0-0.2) K/uL Immature Gran # (Auto) (0.01-0.20) K/uL Sodium (136-145) mmol/L Potassium (3.5-5.1) mmol/L Chloride (98-107) mmol/L Carbon Dioxide (21-32) mmol/L Anion Gap (3-11) BUN (6-23) mg/dl Creatinine (0.6-1.4) mg/dl Est Cr Clr Drug Dosing ml/min Est GFR ( Amer) ml/min Est GFR (Non-Af Amer) ml/min BUN/Creatinine Ratio (10-20) Glucose (70-99(Fasting)) mg/dl Lactate 3.1 H* (0.4-2.0) mmol/L Calcium (8.6-10.3) mg/dl Magnesium (1.7-2.4) mg/dl Total Bilirubin (0.2-1.0) mg/dl Direct Bilirubin (0-0.2) mg/dl AST (13-39) U/L ALT (7-52) U/L Alkaline Phosphatase (34-104) U/L Troponin I High Sens (0-20) pg/ml Total Protein (6.0-8.3) gm/dl Albumin (3.4-5.0) gm/dl Procalcitonin (0-0.5) ng/ml Adenovirus (PCR) Not Detected (NotDetected) Anaplasma Smear Babesia Smear B. pertussis DNA (PCR) Not Detected (NotDetected) B.parapertussis DNA PCR Not Detected (NotDetected) Lyme Disease IgG Ab (Negative) Lyme Disease IgM Ab (Negative) C. pneumoniae DNA (PCR) Not Detected (NotDetected) Coronavirus OC43 (PCR) Not Detected (NotDetected) Coronavirus HKU1 (PCR) Not Detected (NotDetected) Coronavirus 229E (PCR) Not Detected (NotDetected) SARS-CoV-2 (PCR) Not Detected (NotDetected) Coronavirus NL63 (PCR) Not Detected (NotDetected) Monoscreen (Negative) Human Metapneumovir PCR Not Detected (NotDetected) Influenza Type A (PCR) Not Detected (NotDetected) Influenza Type B (PCR) Not Detected (NotDetected) M. pneumoniae (PCR) Not Detected (NotDetected) Parainfluenza 1 (PCR) Not Detected (NotDetected) Parainfluenza 2 (PCR) Not Detected (NotDetected) Parainfluenza 3 (PCR) Not Detected (NotDetected) Parainfluenza 4 (PCR) Not Detected (NotDetected) RSV (PCR) Not Detected (NotDetected) Entero/Rhino (PCR) Not Detected (NotDetected) Administered Medications Hydrocodone Bitart/Acetaminophen (Acetaminophen/Hydrocodone Elix 15 Ml/Cup) 10 ml PO Q6H PRN PRN Reason: pain Stop: 04/08/23 20:20 Last Admin: 03/25/23 20:58 Dose: 10 ml Documented By: ASM Chlorhexidine Gluconate (Chlorhexidine Gluconate 0.12% 480 Ml) 15 ml MT TID [facility] Stop: 04/24/23 20:59 Last Admin: 03/25/23 20:59 Dose: 15 ml Documented By: ASM Lactated Ringer's (Lr) 1,000 mls @ 125 mls/hr IV .Q8H [facility] Stop: 04/24/23 18:29 Last Admin: 03/25/23 18:47 Dose: 125 mls/hr Documented By: OEdward Dexamethasone 4 mg/ Syringe 1 mls @ 1 mls/min IV BID JUANJOSE Stop: 04/24/23 20:59 Last Admin: 03/25/23 20:28 Dose: 1 mls/min Documented By: ASM Discontinued Medications Dexamethasone Sodium Phosphate (DexamethasonePf 10 Mg/Ml Vial) 10 mg IV NOW ONE Stop: 03/25/23 14:12 Last Admin: 03/25/23 14:31 Dose: 10 mg Documented By: NRB Cefepime HCl (Maxipime) 2,000 mg in 20 mls @ 5 mls/min IV NOW STA; Protocol Stop: 03/25/23 14:03 Last Admin: 03/25/23 14:32 Dose: 5 mls/min Documented By: NRB Sodium Chloride (Nss 1000ml) 1,000 mls @ 999 mls/hr IV .Q1H1M JUANJOSE Stop: 03/25/23 15:00 Last Infusion: 03/25/23 15:13 Dose: 0 mls/hr Documented By: Admin: 03/25/23 14:12 Dose: 999 mls/hr Documented By: LINDSEY Sodium Chloride (Nss 1000ml) 1,000 mls @ 999 mls/hr IV .Q1H1M ONE Stop: 03/25/23 15:19 Last Infusion: 03/25/23 17:33 Dose: 0 mls/hr Documented By: Admin: 03/25/23 14:31 Dose: 999 mls/hr Documented By: NRB Potassium Chloride (K Arnoldo / Wtr) 10 meq in 100 mls @ 100 mls/hr IV ONE ONE Stop: 03/25/23 16:05 Last Infusion: 03/25/23 16:12 Dose: 0 mls/hr Documented By: Admin: 03/25/23 15:12 Dose: 100 mls/hr Documented By: NRB Magnesium Sulfate/Dextrose (Magnesium Sulfate / D5w) 1 gm in 100 mls @ 100 mls/hr IV NOW STA Stop: 03/25/23 16:05 Last Infusion: 03/25/23 16:19 Dose: 0 mls/hr Documented By: Admin: 03/25/23 15:19 Dose: 100 mls/hr Documented By: NRB Piperacillin Sod/Tazobactam Sod (Zosyn) 4.5 gm in 120 mls @ 240 mls/hr IV NOW ONE Stop: 03/25/23 16:02 Last Infusion: 03/25/23 16:26 Dose: 0 mls/hr Documented By: Admin: 03/25/23 15:56 Dose: 240 mls/hr Documented By: ARS Lactated Ringer's (Lr) 1,000 mls @ 999 mls/hr IV .Q1H1M ONE Stop: 03/25/23 16:36 Last Infusion: 03/25/23 17:33 Dose: 0 mls/hr Documented By: Admin: 03/25/23 15:55 Dose: 999 mls/hr Documented By: ARS Vancomycin HCl 1,500 mg/ (Sodium Chloride) 530 mls @ 200 mls/hr IV ONE ONE Stop: 03/25/23 18:23 Last Infusion: 03/25/23 20:37 Dose: 0 mls/hr Documented By: Admin: 03/25/23 16:39 Dose: 200 mls/hr Documented By: EDUARD Ioversol (Optiray 320 100ml) 90 ml IV ONCE ONE Stop: 03/25/23 18:27 Last Admin: 03/25/23 18:27 Dose: 90 ml Documented By: NAYELY Ketorolac Tromethamine (Ketorolac Tromethamine 15 Mg/Ml Vial) 15 mg IV NOW STA Stop: 03/25/23 14:14 Last Admin: 03/25/23 14:31 Dose: 15 mg Documented By: PAULINE Imaging Data Radiologist's Impression: Chest X-Ray 03/25/23 14:00 XR chest 1V portable HISTORY: Shortness of breath. Sepsis COMPARISON: Chest 12/18/2020. FINDINGS: The lungs are clear. Cardiac silhouette is normal in size. No pleural effusions. No pneumothorax. IMPRESSION: No acute process. ACT 112: Negative or not required by law. Electronically signed by: Parish Payne M.D. 03/25/2023 3:[address] 03/25/23 14:[address] soft tissue neck wo con CT DOSE: CLINICAL HISTORY: poss abscess, dye allergy . Sore throat and fever. Difficulty breathing. TECHNIQUE: Multiaxial CT images of the neck were performed without contrast due to the patient's intravenous contrast allergy. Sagittal and coronal reformations were performed at the workstation by the radiologist. A dose lowering technique was utilized adhering to the principles of ALARA. COMPARISON STUDY: None. FINDINGS: The visualized brain parenchyma and orbits are unremarkable. The pterygopalatine fossa are well-maintained. There is mild enlargement of the adenoid tonsils. There is severe enlargement of the palatine tonsils which abut at the midline and result in severe narrowing of the airway at the nasopharynx and oropharynx. The epiglottis is normal in thickness. Prevertebral soft tissues appear intact. Evaluation for a peritonsillar abscess is near nondiagnostic due to the lack of intravenous contrast. However, no definite peritonsillar abscess identified. Mild bilateral cervical lymphadenopathy which is likely reactive. The parotid and submandibular glands appear symmetric. The thyroid gland is unremarkable. The lung apices are clear. No pneumothorax. The paranasal sinuses and mastoid air cells are clear. No acute fractures identified. IMPRESSION: 1. There is severe enlargement of the palatine tonsils which abut at the midline and result in severe narrowing of the airway at the nasopharynx and oropharynx. This is consistent with a tonsillitis. 2. Evaluation for a peritonsillar abscess is near nondiagnostic due to the lack of intravenous contrast. However, no definite peritonsillar abscess identified. 3. Mild enlargement of the adenoid tonsils. 4. Mild bilateral cervical lymphadenopathy which is likely reactive. ACT 112: Negative or not required by law. Electronically signed by: Parish Payne M.D. 03/25/2023 2:49 PM Discharge Plan Visit Data Chief Complaint: Shortness of Breath/Dyspnea Stated Complaint: TONGUE SWELLING, SOB, HEADACHE ED Provider: Alexei De La Rosa Discharge Problem: Sepsis, Fever, Acute tonsillitis, Hypokalemia, Hypomagnesemia, Leukocytosis Patient Disposition: Admitted As Inpatient Condition: Fair Discharge Instructions Interventions: ED Discharge Assessment Last Done: 03/25/23 17:07
[2023-03-25] MEDS ORDERED: SODIUM CHLORIDE 0.9% 1000ML 1,000 ML IV ONE (14:19)
[2023-03-25 14:34] LABS: Basophils # (auto) 0.05 K/uL (0-0.2); Basophils % (auto) 0.3 %; Hematocrit (blood only) 39.2 % (42.0-52.0); Hemoglobin 13.8 g/dl (14.0-18.0); Immature Granulocytes # (auto) 0.13 K/uL (0.01-0.20); Immature Granulocytes % (auto) 0.8 %; Lymphocytes # (auto) 0.76 K/uL (1.2-3.4); Lymphocytes % (auto) 4.4 %; Mean Corpuscular Hemoglobin 29.1 pg (25.0-34.0); Mean Corpuscular Hgb Conc 35.2 g/dL (32.0-36.0); Mean Corpuscular Volume 82.7 fL (80.0-100.0); Monocytes # (auto) 1.06 K/uL (0.11-0.59); Monocytes % (auto) 6.2 %; Neutrophils % (auto) 88.3 %; Platelet Count 181 K/uL (130-400); RDW Coefficient of Variation 12.4 % (11.5-14.5); RDW Standard Deviation 37.6 fL (36.4-46.3); Red Blood Count 4.74 M/uL (4.70-6.10)
[2023-03-25 14:50] LABS: Albumin Level 3.7 gm/dl (3.4-5.0); BUN Creatinine Ratio 10.4 (10-20); Bilirubin Direct 0.1 mg/dl (0-0.2); Bilirubin,Total 0.7 mg/dl (0.2-1.0); Calcium 8.5 mg/dl (8.6-10.3); Creatinine Clr Calc Pharmacy 84.4 ml/min; Est GFR (African American) 104.1 ml/min; Est GFR (Non-African American) 89.8 ml/min; Magnesium 1.6 mg/dl (1.7-2.4); Monotest Negative (Negative); Total Protein 6.2 gm/dl (6.0-8.3)
--- NOTE | 2023-03-25 14:52 | CT Scan Report ---
CT CT soft tissue neck wo con CT DOSE: CLINICAL HISTORY: poss abscess, dye allergy . Sore throat and fever. Difficulty breathing. TECHNIQUE: Multiaxial CT images of the neck were performed without contrast due to the patient's intr avenous contrast allergy. Sagittal and coronal reformations were performed at the workstation by the radiologist. A dose lowering technique was utilized adhering to the principles of ALARA. COMPARISON STUDY: None. FINDINGS: The visualized brain parenchyma and orbits are unremarkable. The pterygopalatine fossa are well-maintained. There is mild enlargement of the adenoid tonsils. There is severe enlargement of the palatine tonsils which abut at the midline and result in severe narrowing of the airway at the nasop harynx and oropharynx. The epiglottis is normal in thickness. Prevertebral soft tissues appear intact . Evaluation for a peritonsillar abscess is near nondiagnostic due to the lack of intravenous contras t. However, no definite peritonsillar abscess identified. Mild bilateral cervical lymphadenopathy whi ch is likely reactive. The parotid and submandibular glands appear symmetric. The thyroid gland is un remarkable. The lung apices are clear. No pneumothorax. The paranasal sinuses and mastoid air cells a re clear. No acute fractures identified. IMPRESSION: 1. There is severe enlargement of the palatine tonsils which abut at the midline and result in severe narrowing of the airway at the nasopharynx and oropharynx. This is consistent with a tonsillitis. 2. Evaluation for a peritonsillar abscess is near nondiagnostic due to the lack of intravenous contra st. However, no definite peritonsillar abscess identified. 3. Mild enlargement of the adenoid tonsils. 4. Mild bilateral cervical lymphadenopathy which is likely reactive. ACT 112: Negative or not required by law. Electronically signed by: Parish Payne M.D. 03/25/2023 2:49 PM
[2023-03-25 14:56] LABS: Troponin I High Sensitivity 4.2 pg/ml (0-20)
[2023-03-25] MEDS ORDERED: MAGNESIUM SULFATE / D5W 1 GM/100 ML BAG IV STA (15:06)
[2023-03-25] MEDS ORDERED: POTASSIUM CHLORIDE / WTR 10 MEQ/100 ML PLCT IV ONE (15:06)
[2023-03-25 15:09] LABS: Procalcitonin 6.53 ng/ml (0-0.5)
[2023-03-25 15:15] LABS: Lyme Ab IgG w/WB Rflx Negative (Negative)
[2023-03-25 15:16] LABS: Lyme Ab IgM w/WB Rflx Equivocal (Negative)
--- NOTE | 2023-03-25 15:28 | XRay Report ---
XR chest 1V portable HISTORY: Shortness of breath. Sepsis COMPARISON: Chest 12/18/2020. FINDINGS: The lungs are clear. Cardiac silhouette is normal in size. No pleural effusions. No pneumot horax. IMPRESSION: No acute process. ACT 112: Negative or not required by law. Electronically signed by: Parish Payne M.D. 03/25/2023 3:26 PM
[2023-03-25] MEDS ORDERED: PIPERACILLIN/TAZOBACTAM 4.5 GM/120 ML BAG IV ONE (15:33)
[2023-03-25] MEDS ORDERED: VANCOMYCIN HCL 1,250 MG in SODIUM CHLORIDE 0.9% 500 ML IV ONE (15:34)
[2023-03-25] MEDS ORDERED: VANCOMYCIN CONSULT ACTIVE PRN (15:34)
[2023-03-25 15:36] LABS: Adenovirus PCR Not Detected (NotDetected); Bordetella parapertussis PCR Not Detected (NotDetected); Bordetella pertussis PCR Not Detected (NotDetected); Chlamydia pneumoniae PCR Not Detected (NotDetected); Coronavirus 229E PCR Not Detected (NotDetected); Coronavirus CoV-2 (COVID19)PCR Not Detected (NotDetected); Coronavirus HKU1 PCR Not Detected (NotDetected); Coronavirus NL63 PCR Not Detected (NotDetected); Coronavirus OC43PCR Not Detected (NotDetected); Human Metapneumovirus PCR Not Detected (NotDetected); Influenza A PCR Not Detected (NotDetected); Influenza B PCR Not Detected (NotDetected); Mycoplasma pneumoniae PCR Not Detected (NotDetected); Parainfluenza Virus 1 PCR Not Detected (NotDetected); Parainfluenza Virus 2 PCR Not Detected (NotDetected); Parainfluenza Virus 3 PCR Not Detected (NotDetected); Parainfluenza Virus 4 PCR Not Detected (NotDetected); Respiratory Syncytial VirusPCR Not Detected (NotDetected); Rhinovirus/Enterovirus PCR Not Detected (NotDetected)
[2023-03-25] MEDS ORDERED: LACTATED RINGER'S 1,000 ML IV ONE (15:36)
[2023-03-25] MEDS ORDERED: VANCOMYCIN HCL 1,500 MG in SODIUM CHLORIDE 0.9% 500 ML IV ONE (15:45)
--- NOTE | 2023-03-25 15:45 | History & Physical Report ---
Date of Service March 25, 2023 Assessment & Plan (1) Sepsis: Plan: Source = tonsillitis +/- abscess, will repeat CT with IV contrast to assess for drainable abscess Broaden antibiotics with Zosyn and vancomycin pending blood and throat cultures Lactate 3.1 -> repeat pending, Will give 3rd L of fluid with LR bolus then 125ml/hr after that (2) Tonsillitis: Plan: CT with IV contrast as above, will consider ENT consult pending results of this Throat culture Group A strep PCR negative on prior ER visit Biofire negative (3) Electrolyte abnormality: Plan: K 3.0. KCl 10 meq IV given in ER, additional 20 meq IV ordered Mg 1.6 - 1g IV given in ER, additional 1g Mg sulfate ordered Plan VTE Prophyalxis - low risk Diet - NPO Disposition - admit to PCU Admission and Anticipated Discharge Date Admission Date: March 25, 2023 History of Present Illness Chief Complaint: Sore throat, fever Primary Care Provider: DO Iban Mcgowan Sylvia is a 23 year old male who returns ot the ER after recent discharge last night for fever, chills and sore throat. He reports 2-3 days of feeling unless with sore throat, fever and generalized body aches. Associated bilateral sinus pain, mild shortness of breath. No nasal congestion, cough or chest pain. His symptoms became progressively much worse following his hepatitis B vaccination. He was throughly worked up at his prior ER visit including negative lumbar puncture and group A strep PCR throat swab. He was discharged just last night. He received no antibiotics and felt symptoms were viral in nature. Since discharge he has had a high fever, more fatigued and difficulty swallowing due to sore and swollen throat. He denies any difficulty breathing in. Allergies Allergy/AdvReac Type Severity Reaction Status Date / Time shellfish derived Allergy Severe throat Verified 03/25/23 15:43 swelling wild [place] Allergy Severe Swelling Verified 03/25/23 15:43 of Lip/Tongue/Throat Home Medications Medication Instructions Recorded Confirmed Type hydroxyzine HCl 25 mg tablet 25 mg PO BID PRN Insomnia 02/09/23 03/25/23 History ergocalciferol (vitamin D2) 1,250 1,250 mcg PO .COMPLEX #20 caps 03/07/23 03/25/23 Rx mcg (50,000 unit) capsule sucralfate 1 gram tablet 1 g BID 03/24/23 03/25/23 History acetaminophen 500 mg tablet 1,000 mg PO Q6H PRN Pain 03/25/23 03/25/23 History (Tylenol Extra Strength) ibuprofen 200 mg tablet 400 mg PO Q6H PRN Fever Or Pain 03/25/23 03/25/23 History Past Med/Surg History Medical History Encounter for pre-operative examination History of COVID-19 ~2 years ago, PCP test, not hosp; moderate symptoms>resolved. History of seizure "struck in the [place]ian[place] during soccer as a child-had one seizure, no issues since then" Major depressive disorder, single episode, severe without psychotic features Panic disorder PTSD (post-traumatic stress disorder) Suicide attempt by hanging hospitalized at [facility] in 01/04/2023 Vitamin D deficiency Surgical History Hx of tooth extraction as child Family History Grandfather (Paternal) Lung cancer Grandmother (Paternal) Myocardial infarction Denies family history of Ovarian cancer Prostate cancer Diabetes Breast cancer Colorectal cancer Stroke Social History Smoking Status: Never smoker Second Hand Exposure: No; Do You Dip or Chew Tobacco: No; Tobacco Cessation Education Requested by Patient: No Hx Alcohol Use: Yes Alcohol type: beer Hx Substance Use: No Preferred Language: Icelandic Communication Ability: Effective Visual Impairment: No Limitations Hearing Ability: Normal High School Coach Required: Voice Beliefs That Will Affect Care: None marital status: Single Current Living Situation: Alone Current Living Situation Comment: college student current occupational status: student How many Children do You have: 0 Other Information That Helps Us Care for You: No Feels Safe at Home: Yes Safety Concerns: Feels Safe At This Time Childhood Exposure to Second-Hand Smoke: No caffeine: Yes Dental Care, Regularly: Yes Physical Activity Frequency: Daily Seatbelt Use: always Sunscreen Use: Yes Gender Identity: Male Assistive Devices: None Review of Systems Review of Systems: All systems reviewed & are unremarkable except as noted in HPI & below Physical Exam Constitutional: well developed, well nourished and + ill appearing; no acute distress Eyes: PERRL, conjunctivae normal, anicteric sclerae ENMT: Tonsils enlarged with white areas, touching in center Respiratory: normal respiratory effort, lungs clear to auscultation no stridor Cardiovascular: Rate/Rhythm: regular rate and regular rhythm Heart Sounds: no murmur Extremities: normal capillary refill; no calf tenderness and no pedal edema Gastrointestinal (Abdomen): normal bowel sounds, soft, nontender, no hepatosplenomegaly Musculoskeletal: no cyanosis or clubbing, extremities motor strength 5/5 Skin: no rashes, warm and dry (no areas of cellulitis) Neurologic: moves all extremities and awake; not confused Psychiatric: A+Ox3, euthymic affect Genitourinary: no CVA tenderness Lymphatic: + cervical lymphadenopathy Results & Data Results & Data Vital Signs (Past 12 Hours) Vital Signs Temp Pulse Pulse Resp BP BP Pulse Ox 03/25/23 15:19 92 H 22 90/37 L 96 03/25/23 15:06 98 H 24 88/50 L 96 03/25/23 14:40 110 H 26 H 96/48 L 96 03/25/23 14:17 111 H 03/25/23 14:15 110 H 26 H 96/48 L 96 03/25/23 14:15 110 H 26 H 96 03/25/23 13:39 39.2 C H 116 H 28 H 114/52 L 99 O2 Del Method 03/25/23 15:19 Room Air 03/25/23 15:06 Room Air 03/25/23 14:40 Room Air 03/25/23 14:17 03/25/23 14:15 Room Air 03/25/23 14:15 Room Air 03/25/23 13:39 Room Air Laboratory Results Abnormal lab results 03/25/23 03/25/23 03/25/23 Range/Units 14:13 14:13 14:13 WBC 17.10 H (4.8-10.8) K/ul Hgb 13.8 L (14.0-18.0) g/dl Hct 39.2 L (42.0-52.0) % Neut # (Auto) 15.10 H (1.40-6.50) K/uL Lymph # (Auto) 0.76 L (1.2-3.4) K/uL [place] # (Auto) 1.06 H (0.11-0.59) K/uL Potassium 3.0 L (3.5-5.1) mmol/L Chloride 108 H (98-107) mmol/L Glucose 187 H (70-99(Fasting)) mg/dl Lactate (0.4-2.0) mmol/L Calcium 8.5 L (8.6-10.3) mg/dl Magnesium 1.6 L (1.7-2.4) mg/dl Procalcitonin 6.53 H (0-0.5) ng/ml Urine Appearance (Clear) Urine Protein (Negative) Urine WBC (Auto) (0-5) /hpf U Epithel Cells (Auto) (0-5) /lpf Lyme Disease IgM Ab Equivocal A (Negative) 03/25/23 03/25/23 Range/Units 14:22 16:25 WBC (4.8-10.8) K/ul Hgb (14.0-18.0) g/dl Hct (42.0-52.0) % Neut # (Auto) (1.40-6.50) K/uL Lymph # (Auto) (1.2-3.4) K/uL [place] # (Auto) (0.11-0.59) K/uL Potassium (3.5-5.1) mmol/L Chloride (98-107) mmol/L Glucose (70-99(Fasting)) mg/dl Lactate 3.1 H* (0.4-2.0) mmol/L Calcium (8.6-10.3) mg/dl Magnesium (1.7-2.4) mg/dl Procalcitonin (0-0.5) ng/ml Urine Appearance Cloudy A (Clear) Urine Protein Trace H (Negative) Urine WBC (Auto) 5-10 H (0-5) /hpf U Epithel Cells (Auto) 20-30 H (0-5) /lpf Lyme Disease IgM Ab (Negative) Diagnostic Findings XR chest 1V portable HISTORY: Shortness of breath. Sepsis COMPARISON: Chest 12/18/2020. FINDINGS: The lungs are clear. Cardiac silhouette is normal in size. No pleural effusions. No pneumothorax. IMPRESSION: No acute process. CT CT soft tissue neck wo con CT DOSE: CLINICAL HISTORY: poss abscess, dye allergy . Sore throat and fever. Difficulty breathing. TECHNIQUE: Multiaxial CT images of the neck were performed without contrast due to the patient's intravenous contrast allergy. Sagittal and coronal reformations were performed at the workstation by the radiologist. A dose lowering technique was utilized adhering to the principles of ALARA. COMPARISON STUDY: None. FINDINGS: The visualized brain parenchyma and orbits are unremarkable. The pterygopalatine fossa are well-maintained. There is mild enlargement of the adenoid tonsils. There is severe enlargement of the palatine tonsils which abut at the midline and result in severe narrowing of the airway at the nasopharynx and oropharynx. The epiglottis is normal in thickness. Prevertebral soft tissues appear intact. Evaluation for a peritonsillar abscess is near nondiagnostic due to the lack of intravenous contrast. However, no definite peritonsillar abscess identified. Mild bilateral cervical lymphadenopathy which is likely reactive. The parotid and submandibular glands appear symmetric. The thyroid gland is unremarkable. The lung apices are clear. No pneumothorax. The paranasal sinuses and mastoid air cells are clear. No acute fractures identified. IMPRESSION: 1. There is severe enlargement of the palatine tonsils which abut at the midline and result in severe narrowing of the airway at the nasopharynx and oropharynx. This is consistent with a tonsillitis. 2. Evaluation for a peritonsillar abscess is near nondiagnostic due to the lack of intravenous contrast. However, no definite peritonsillar abscess identified. 3. Mild enlargement of the adenoid tonsils. 4. Mild bilateral cervical lymphadenopathy which is likely reactive. Medications Administered ER Medications Given: Cefepime 2g IV NSS 1L bolus Dexamethasone 10mg IV Toradol 15mg IV NSS 1L bolus K Arnoldo 10 meq IV Mg sulfate 1g IV ECG Rate (beats per minute): 108 Rhythm: sinus tachycardia Findings: no acute ischemic change Comparison ECG Date: from (December 18, 2020) Change: no significant change Code Status & VTE Plan Code Status Full VTE Prophylaxis Plan VTE Prophylaxis will be ordered: Yes PG Care Time/CCT Total # of Minutes Spent Total Time Spent with Patient: Total time spent is greater than 50% in coordination of care (as documented) at patient's floor/unit and/or counseling patient: Coding Level of Care Code 42873 INT INP/OBS CARE 3/75MIN Diagnoses Sepsis A41.9 Tonsillitis J03.90 Electrolyte abnormality E87.8
[2023-03-25 16:42] LABS: Appearance Urine Cloudy (Clear); Bacteria Urine Automated Negative (Negative); Bilirubin Urine Negative (Negative); Blood Urine Negative (Negative); Cast Urine Automated 0 /lpf (0-5); Color Urine Yellow; Epithelial Cell Urine Auto 20-30 /lpf (0-5); Glucose Urine UA Negative (Negative); Ketones Urine Negative (Negative); Leukocyte Esterase Urine Negative (Negative); Nitrite Urine Negative (Negative); Protein Urine Trace (Negative); RBC Urine Automated 0-4 /hpf (0-4); Specific Gravity Urine 1.011 (1.000-1.030); Urobilinogen Urine Negative (Negative); pH Urine 6.5 (4.5-7.5)
[2023-03-25] MEDS ORDERED: ACETAMINOPHEN 1,000 MG/100 ML VIAL IV PRN (17:23)
[2023-03-25] MEDS ORDERED: ONDANSETRON INJ 2 MG/ML 2 ML VIAL IV PRN (17:23)
[2023-03-25] MEDS ORDERED: OPTIRAY 320 100ml IV ONE (18:26)
[2023-03-25] MEDS: LACTATED RINGER'S 1,000 ML IV SCH (18:47)
--- NOTE | 2023-03-25 19:14 | CT Scan Report ---
CT soft tissue neck w con CT DOSE: CLINICAL HISTORY: sepsis, tonsillitis ?abscess TECHNIQUE: Multiaxial CT images of the neck were performed following the intravenous administration o f 90 cc of Optiray 320. Sagittal and coronal reformations also obtained. A dose lowering technique w as utilized adhering to the principles of ALARA. COMPARISON STUDY: Noncontrast CT neck 03/25/2023. FINDINGS: The visualized brain parenchyma and orbits are unremarkable. The pterygopalatine fossa are well-maintained. There is mild enlargement of the adenoid tonsils. There is severe enlargement of the palatine tonsils which abut at the midline and result in severe narrowing of the airway at the nasop harynx and oropharynx. The epiglottis is normal in thickness. Prevertebral soft tissues appear intact . Within the left peritonsillar region on images 188 and 186 there are 2 adjacent subtle ill-defined hypodense areas. These measure 14 mm and 8 mm respectively. These favor phlegmon/developing peritonsi llar abscesses. These demonstrate incomplete peripheral enhancement at this time. Mild bilateral cerv ical lymphadenopathy which is likely reactive. The parotid and submandibular glands appear symmetric. The thyroid gland is unremarkable. The lung apices are clear. No pneumothorax. The paranasal sinuses and mastoid air cells are clear. No acute fractures identified. The major cervical vessels enhance n ormally. IMPRESSION: 1. There is severe enlargement of the palatine tonsils which abut at the midline and result in severe narrowing of the airway at the nasopharynx and oropharynx. This is consistent with a tonsillitis. 2. There are 2 adjacent subtle ill-defined hypodense areas within the left peritonsillar region which measure 14 mm and 8 mm as described above. These favor phlegmon/developing peritonsillar abscesses. 3. Mild enlargement of the adenoid tonsils. 4. Mild bilateral cervical lymphadenopathy which is likely reactive. ACT 112: Negative or not required by law. Electronically signed by: Parish Payne M.D. 03/25/2023 7:11 PM
[2023-03-25] MEDS: dexAMETHasone 4 MG in SYRINGE 0 ML IV SCH (20:28)
[2023-03-25] MEDS: ACETAMINOPHEN/HYDROcodone ELIX 15 ML/CUP PO PRN (20:58)
--- NOTE | 2023-03-25 20:58 | Oral/Maxillofacial Consult ---
Date of Consultation March 25, 2023 Assessment & Plan (1) Tonsillitis: (2) Sepsis: (3) Fever: (4) Acute sore throat: (5) Headache: (6) Rectal ulcer: History of Present Illness Attending Physician: Slick Pope MD History of Present Illness HISTORY OF PRESENT ILLNESS: The patient is a 23-year-old male who presents to the ER with 2 days of illness. He began yesterday with a sore throat, body aches and a headache. He went and had his hepatitis B vaccination. Towards evening, he felt quite a bit worse and came to this hospital. Work-up included laboratory testing, a bio fire, strep testing as well as a lumbar puncture. Patient had a white count of 14,000. His bio fire was negative. Strep testing was negative. Pitt testing was negative. The lumbar puncture was negative. His illness was thought likely viral. He was discharged. As per the patient and his father. He has worsened since discharge earlier this morning. He has a high fever, he is fatigued, he has a hard time swallowing because of a very sore and swollen throat. He feels short of breath, has body aches. He did take some Motrin 8 hours ago and some Tylenol 2 hours ago. There has been no urinary complaint, no diarrhea, no reported vomiting. No sick contacts. CT soft tissue neck w con CT DOSE: CLINICAL HISTORY: sepsis, tonsillitis ?abscess TECHNIQUE: Multiaxial CT images of the neck were performed following the intravenous administration of 90 cc of Optiray 320. Sagittal and coronal reformations also obtained. A dose lowering technique was utilized adhering to the principles of ALARA. COMPARISON STUDY: Noncontrast CT neck 03/25/2023. FINDINGS: The visualized brain parenchyma and orbits are unremarkable. The pterygopalatine fossa are well-maintained. There is mild enlargement of the demetrius noid tonsils. There is severe enlargement of the palatine tonsils which abut at the midline and result in severe narrowing of the airway at the nasopharynx and oropharynx. The epiglottis is normal in thickness. Prevertebral soft tissues appear intact. Within the left peritonsillar region on images 188 and 186 there are 2 adjacent subtle ill-defined hypodense areas. These measure 14 mm and 8 mm respectively. These favor phlegmon/developing peritonsillar abscesses. These demonstrate incomplete peripheral enhancement at this time. Mild bilateral cervical lymphadenopathy which is likely reactive. The parotid and submandibular glands appear symmetric. The thyroid gland is unremarkable. The lung apices are clear. No pneumothorax. The paranasal sinuses and mastoid air cells are clear. No acute fractures identified. The major cervical vessels enhance normally. IMPRESSION: 1. There is severe enlargement of the palatine tonsils which abut at the midline and result in severe narrowing of the airway at the nasopharynx and oropharynx. This is consistent with a tonsillitis. 2. There are 2 adjacent subtle ill-defined hypodense areas within the left peritonsillar region which measure 14 mm and 8 mm as described above. These favor phlegmon/developing peritonsillar abscesses. 3. Mild enlargement of the adenoid tonsils. 4. Mild bilateral cervical lymphadenopathy which is likely reactive. As a result of the above I was consulted regarding the possibility of a peritonsillar abscess and I&D when appropriate. I saw Iban in his room at 8 pm on March 25, 2023. He was resting comfortably and was not having any breathing issues. He can swallow his saliva but he has pain with swallowing He can take pills and fluid. His voice is not strained and he does not present with the typical Hot Potato voice. His tonsils are large and meeting in the middle I see no drainable pus at this time I was able to palpate the tonsils and they are hard and firm The soft palate is NOT swollen My plan is as follows: Increase fluid intake-diet as tolerated Oral Lortab liquid for pain control IV antibiotics and IV fluids, steroids Peridex rinse q 8hrs Evaluate Iban in the AM At this point there is nothing to drain and No JOINERY MACHINIST is noted. If a JOINERY MACHINIST develops I&D will be needed if not controlled with fluid, pain meds and antibiotics We can consider discharge once his pain is control and the swelling starts t decrease. For now we should continue conservative management Surgical intervention when appropriate. I will re evaluate Iban Monday morning. Allergies Allergy/AdvReac Type Severity Reaction Status Date / Time shellfish derived Allergy Severe throat Verified 03/25/23 15:43 swelling wild le[place] Allergy Severe Swelling Verified 03/25/23 15:43 of Lip/Tongue/Throat Home Medications Medication Instructions Recorded Confirmed Type hydroxyzine HCl 25 mg tablet 25 mg PO BID PRN Insomnia 02/09/23 03/25/23 History ergocalciferol (vitamin D2) 1,250 1,250 mcg PO .COMPLEX #20 caps 03/07/23 03/25/23 Rx mcg (50,000 unit) capsule sucralfate 1 gram tablet 1 g BID 03/24/23 03/25/23 History acetaminophen 500 mg tablet 1,000 mg PO Q6H PRN Pain 03/25/23 03/25/23 History (Tylenol Extra Strength) ibuprofen 200 mg tablet 400 mg PO Q6H PRN Fever Or Pain 03/25/23 03/25/23 History Patient History Medical History (Updated 03/25/23 @ 16:11 by Slick Pope MD) Encounter for pre-operative examination History of COVID-19 ~2 years ago, PCP test, not hosp; moderate symptoms>resolved. History of seizure "struck in the [place] during soccer as a child-had one seizure, no issues since then" Major depressive disorder, single episode, severe without psychotic features Panic disorder PTSD (post-traumatic stress disorder) Suicide attempt by hanging hospitalized at [facility] in 01/04/2023 Vitamin D deficiency Surgical History Hx of tooth extraction as child Family History Grandfather (Paternal) Lung cancer Grandmother (Paternal) Myocardial infarction Denies family history of Ovarian cancer Prostate cancer Diabetes Breast cancer Colorectal cancer Stroke Social History (Updated 02/09/23 @ 13:29 by Massiel Messer LPN) Smoking Status: Never smoker Second Hand Exposure: No; Do You Dip or Chew Tobacco: No; Tobacco Cessation Education Requested by Patient: No Hx Alcohol Use: Yes Alcohol type: beer Hx Substance Use: No Preferred Language: Jamaican Communication Ability: Effective Visual Impairment: No Limitations Hearing Ability: Normal Marketing And Development Coordinator Required: Voice Beliefs That Will Affect Care: None marital status: Single Current Living Situation: Alone Current Living Situation Comment: college student current occupational status: student How many Children do You have: 0 Other Information That Helps Us Care for You: No Feels Safe at Home: Yes Safety Concerns: Feels Safe At This Time Childhood Exposure to Second-Hand Smoke: No caffeine: Yes Dental Care, Regularly: Yes Physical Activity Frequency: Daily Seatbelt Use: always Sunscreen Use: Yes Gender Identity: Male Assistive Devices: None Results & Data Vital Signs (Past 12 Hours) Vital Signs Temp Pulse Pulse Resp BP BP BP 03/25/23 20:06 36.7 C 55 L 16 109/68 03/25/23 17:23 36.8 C 71 18 98/58 L 03/25/23 18:32 46 L 03/25/23 17:25 36.8 C 71 18 98/58 L 03/25/23 17:07 03/25/23 16:50 78 24 109/61 03/25/23 16:20 83 20 03/25/23 16:10 81 15 03/25/23 16:00 83 20 03/25/23 15:53 90 21 03/25/23 15:53 100/61 03/25/23 15:50 89 20 03/25/23 15:40 94 H 20 03/25/23 15:30 89 21 03/25/23 15:20 90 20 03/25/23 15:19 96 H 21 03/25/23 15:19 90/37 L 03/25/23 15:10 102 H 20 03/25/23 15:05 97 H 20 03/25/23 15:05 88/50 L 03/25/23 15:00 98 H 24 03/25/23 14:50 97 H 17 03/25/23 14:40 102 H 24 03/25/23 14:31 104 H 18 03/25/23 14:20 105 H 24 03/25/23 14:12 108 H 20 03/25/23 14:12 96/48 L 03/25/23 14:10 109 H 23 03/25/23 16:26 03/25/23 15:19 92 H 22 90/37 L 03/25/23 15:06 98 H 24 88/50 L 03/25/23 14:40 110 H 26 H 96/48 L 03/25/23 14:17 111 H 03/25/23 14:15 110 H 26 H 96/48 L 03/25/23 14:15 110 H 26 H 03/25/23 13:39 39.2 C H 116 H 28 H 114/52 L Pulse Ox O2 Del Method O2 Flow Rate 03/25/23 20:06 98 Room Air 07/01/23 17:23 98 Room Air 03/25/23 18:32 03/25/23 17:25 98 Room Air 03/25/23 17:07 Room Air 03/25/23 16:50 98 Room Air 03/25/23 16:20 100 03/25/23 16:10 99 03/25/23 16:00 97 03/25/23 15:53 97 03/25/23 15:53 03/25/23 15:50 96 03/25/23 15:40 96 03/25/23 15:30 96 03/25/23 15:20 96 03/25/23 15:19 96 03/25/23 15:19 03/25/23 15:10 95 03/25/23 15:05 96 03/25/23 15:05 03/25/23 15:00 96 03/25/23 14:50 97 03/25/23 14:40 96 03/25/23 14:31 96 03/25/23 14:20 97 03/25/23 14:12 96 03/25/23 14:12 03/25/23 14:10 03/25/23 16:26 98 Room Air 0 03/25/23 15:19 96 Room Air 03/25/23 15:06 96 Room Air 03/25/23 14:40 96 Room Air 03/25/23 14:17 03/25/23 14:15 96 Room Air 03/25/23 14:15 96 Room Air 03/25/23 13:39 99 Room Air PG Care Time/CCT Total # of Minutes Spent Total Time Spent with Patient: Total time spent is greater than 50% in coordination of care (as documented) at patient's floor/unit and/or counseling patient: Coding Level of Care Code 92187 IN/OBS CONSULT LVL 2,35M Diagnoses Tonsillitis J03.90 Sepsis A41.9 Fever R50.9 Acute sore throat J02.9 Headache R51.9 Rectal ulcer K62.6
[2023-03-25] MEDS: CHLORHEXIDINE GLUCONATE 0.12% 480 ML MT SCH (20:59)
--- NOTE | 2023-03-25 21:15 | Electrocardiogram Report ---
Test Reason : Blood Pressure : / mmHG Vent. Rate : 108 BPM Atrial Rate : 108 BPM P-R Int : 118 ms QRS Dur : 086 ms QT Int : 310 ms P-R-T Axes : 072 079 060 degrees QTc Int : 415 ms Sinus tachycardia Otherwise normal ECG When compared with ECG of 18-DEC-2020 18:40, QT has shortened Confirmed by Chuy David ([id number]) on 03/25/2023 9:14:40 PM Referred By: Jaime Barnett Confirmed By:Chuy David
[2023-03-25] MEDS ORDERED: MAGNESIUM SULFATE / D5W 1 GM/100 ML BAG IV ONE (22:55)
[2023-03-26] MEDS: PIPERACILLIN/TAZOBACTAM 4.5 GM in DEXTROSE 5% 100 ML IV SCH ×2 (00:05→12:40)
[2023-03-26] MEDS: POTASSIUM CHLORIDE / WTR 10 MEQ/100 ML PLCT IV SCH ×2 (00:25→01:35)
[2023-03-26] MEDS ORDERED: VANCOMYCIN HCL 750 MG in SODIUM CHLORIDE 0.9% 250 ML IV SCH (05:00)
[2023-03-26] MEDS: LACTATED RINGER'S 1,000 ML IV SCH ×2 (06:18→11:44)
[2023-03-26 06:19] LABS: Hematocrit (blood only) 38.6 % (42.0-52.0); Hemoglobin 13.2 g/dl (14.0-18.0); Mean Corpuscular Hemoglobin 29.1 pg (25.0-34.0); Mean Corpuscular Hgb Conc 34.2 g/dL (32.0-36.0); Mean Platelet Volume 10.1 fL (9.4-12.4); Platelet Count 181 K/uL (130-400); RDW Coefficient of Variation 12.8 % (11.5-14.5); RDW Standard Deviation 39.7 fL (36.4-46.3); Red Blood Count 4.54 M/uL (4.70-6.10); White Blood Count 19.19 K/ul (4.8-10.8)
[2023-03-26 06:40] LABS: Basophils # (auto) 0.04 K/uL (0-0.2); Basophils % (auto) 0.2 %; Echinocytes 1+; Eosinophils # (auto) 0.04 K/uL (0-0.50); Eosinophils % (auto) 0.2 %; Immature Granulocytes # (auto) 0.34 K/uL (0.01-0.20); Immature Granulocytes % (auto) 1.8 %; Lymphocytes # (auto) 1.25 K/uL (1.2-3.4); Lymphocytes % (auto) 6.5 %; Monocytes # (auto) 0.74 K/uL (0.11-0.59); Monocytes % (auto) 3.9 %; Neutrophils # (auto) 16.78 K/uL (1.40-6.50); Neutrophils % (auto) 87.4 %
[2023-03-26 06:42] LABS: Anion Gap 3 (3-11); BUN Creatinine Ratio 10.5 (10-20); Blood Urea Nitrogen 8 mg/dl (6-23); Calcium 8.3 mg/dl (8.6-10.3); Carbon Dioxide 25 mmol/L (21-32); Chloride 111 mmol/L (98-107); Creatinine Clr Calc Pharmacy 127.7 ml/min; Est GFR (African American) > 150.0 ml/min; Est GFR (Non-African American) 129.5 ml/min; Glucose 151 mg/dl (70-99(Fasting)); Potassium 4.4 mmol/L (3.5-5.1); Sodium 139 mmol/L (136-145)
--- NOTE | 2023-03-26 10:09 | Oral/Maxillofacial Progress Nt ---
Date of Service March 26, 2023 Assessment & Plan Admission and Anticipated Discharge Date Admission Date: March 25, 2023 Subjective Iban is feeling somewhat better this morning. He tells me he has less swelling and is able to swallow better. There is still no drainable pus to consider that a [employer] REPAIRER is present At this time his tonsils are large secondary to tonsillitises w/o [employer] REPAIRER I suggest we continue the supportive care for another 24 hr. I will reevaluate him tomorrow AM and make a discission regarding the need for surgical drainage vs discharge and out patient follow up. Results & Data Vital Signs (Past 12 Hours) Vital Signs Temp Pulse Resp BP BP Pulse Ox O2 Del Method 03/26/23 07:28 36.6 C 69 18 103/58 L 98 Room Air 03/26/23 03:47 36.4 C L 49 L 18 97/57 L 97 Room Air 03/25/23 23:14 36.6 C 81 16 99/55 L 97 Room Air PG Care Time/CCT Total # of Minutes Spent Total Time Spent with Patient: Total time spent is greater than 50% in coordination of care (as documented) at patient's floor/unit and/or counseling patient: Coding Level of Care Code None Diagnoses
[2023-03-26] MEDS: AMPICILLIN/SULBACTAM SOD 3,000 MG in 0.9 % SODIUM CHLORIDE 100 ML IV SCH ×3 (10:12→22:29)
[2023-03-26] MEDS: MAGNESIUM SULFATE / D5W 1 GM/100 ML BAG IV SCH ×2 (10:12→12:40)
[2023-03-26] MEDS: ACETAMINOPHEN/HYDROcodone ELIX 15 ML/CUP PO PRN (10:12)
[2023-03-26] MEDS: CHLORHEXIDINE GLUCONATE 0.12% 480 ML MT SCH ×3 (10:13→20:26)
[2023-03-26] MEDS: dexAMETHasone 4 MG in SYRINGE 0 ML IV SCH ×2 (10:14→20:27)
--- NOTE | 2023-03-26 11:55 | Hospitalist Progress Note ---
Date of Service March 26, 2023 Assessment & Plan (1) Sepsis: Plan: Acute/stable - high risk - Source = tonsillitis +/- abscess - Repeat CT w/ contrast on 03/25 indicated severe enlargement of tonsils resulting in severe narrowing of the airway and 2 hypodense areas w/in the L peritonsillar region ?developing abscess v phlegmon - Broadened antibiotics with Zosyn and vancomycin on admission - Throat and blood cultures collected/pending - Lactate 3.1 -> repeat 1.7 - Remains in mIVF with LR @ 125 ml/hr - Afebrile this AM, CBC reviewed, no leukocytosis or tachycardia, sepsis syndrome as resolved - De-escalate IV abx to Unasyn - LP performed during previous ER visit on 03/25 which was negative - Lyme IgM is equivocal, WB pending (2) Tonsillitis: Plan: Acute/unstable - moderate to high risk given airway narrowing - Throat culture pending - Group A strep PCR negative on prior ER visit - Biofire negative - Appreciate OMFS input, Dr. Guzman following - CT as above, Dr. Guzman to determine if surgical intervention is warranted - Was initially kept NPO, but tolerating liquids and no plan for surgery today, will allow soft diet - Make NPO after MN in event he needs I&D on 03/27 - Continue IV Decadron (3) Electrolyte abnormality: Plan: Acute/stable - K 3.0. KCl 10 meq IV given in ER, additional 20 meq IV ordered, - Mg 1.6 - received total of 2g IV Mag for replacement in ED - BMP reviewed today, potassium normalized, no mag level ordered - Trend Mag level in AM Plan Plan as outlined above. Downgrade to med/surg unit. Repeat labs ordered for tomorrow AM. Plan to be d/w Dr. Marcano. Admission and Anticipated Discharge Date Admission Date: March 25, 2023 Supervising Physician Co-Signing Physician Notes The patient was not seen by me. The chart was reviewed. Case discussed with POLLO Gregg. Agree with assessment and plan Subjective Patient was seen on rounds this morning. He reports that his throat is feeling better, swelling feels like it has decreased. Able to swallow liquids and is asking for a soft diet. No fever/chills overnight. Denies dyspnea. Physical Exam Physical Exam: GENERAL: 23 yo well-developed, well-nourished M. AAOx4. NAD. ENT: Difficult to see entire posterior pharynx without tongue depressor, but no obvious airway obstruction LUNGS: Clear to auscultation bilaterally w/o W/R/R. CARDIOVASCULAR: Regular rate and rhythm. No M/G/R. No JVD. EXTREMITIES: No edema. Non-tender. Peripheral pulses +2/4. Results & Data Results & Data Vital Signs (Past 12 Hours) Vital Signs Temp Pulse Resp BP BP Pulse Ox O2 Del Method 03/26/23 10:58 36.9 C 67 18 120/65 99 Room Air 03/26/23 07:28 36.6 C 69 18 103/58 L 98 Room Air 03/26/23 03:47 36.4 C L 49 L 18 97/57 L 97 Room Air Laboratory Results 03/26/23 05:31 03/26/23 05:31 PG Care Time/CCT Total # of Minutes Spent Total Time Spent with Patient: Total time spent is greater than 50% in coordination of care (as documented) at patient's floor/unit and/or counseling patient: Coding Level of Care Code 33993 SUB INP/OBS CARE 3/50MIN Diagnoses Sepsis A41.9 Tonsillitis J03.90 Electrolyte abnormality E87.8
[2023-03-26] MEDS ORDERED: MELATONIN 3 MG TAB PO PRN (19:33)
[2023-03-27] MEDS: AMPICILLIN/SULBACTAM SOD 3,000 MG in 0.9 % SODIUM CHLORIDE 100 ML IV SCH ×2 (04:15→10:10)
[2023-03-27 06:38] LABS: Basophils # (auto) 0.02 K/uL (0-0.2); Basophils % (auto) 0.1 %; Hematocrit (blood only) 36.6 % (42.0-52.0); Hemoglobin 12.5 g/dl (14.0-18.0); Immature Granulocytes # (auto) 0.09 K/uL (0.01-0.20); Immature Granulocytes % (auto) 0.5 %; Lymphocytes # (auto) 1.38 K/uL (1.2-3.4); Lymphocytes % (auto) 8.3 %; Mean Corpuscular Hemoglobin 28.6 pg (25.0-34.0); Mean Corpuscular Hgb Conc 34.2 g/dL (32.0-36.0); Mean Corpuscular Volume 83.8 fL (80.0-100.0); Mean Platelet Volume 10.9 fL (9.4-12.4); Monocytes # (auto) 0.82 K/uL (0.11-0.59); Monocytes % (auto) 4.9 %; Neutrophils # (auto) 14.35 K/uL (1.40-6.50); Neutrophils % (auto) 86.2 %; Platelet Count 206 K/uL (130-400); RDW Coefficient of Variation 12.9 % (11.5-14.5); RDW Standard Deviation 39.3 fL (36.4-46.3); Red Blood Count 4.37 M/uL (4.70-6.10); White Blood Count 16.66 K/ul (4.8-10.8)
[2023-03-27 06:48] LABS: Anion Gap 4 (3-11); BUN Creatinine Ratio 16.9 (10-20); Blood Urea Nitrogen 11 mg/dl (6-23); Calcium 8.1 mg/dl (8.6-10.3); Carbon Dioxide 25 mmol/L (21-32); Chloride 110 mmol/L (98-107); Creatinine Clr Calc Pharmacy 149.3 ml/min; Est GFR (African American) > 150.0 ml/min; Est GFR (Non-African American) 138.1 ml/min; Glucose 141 mg/dl (70-99(Fasting)); Magnesium 1.7 mg/dl (1.7-2.4); Sodium 139 mmol/L (136-145)
[2023-03-27] MEDS: CHLORHEXIDINE GLUCONATE 0.12% 480 ML MT SCH (08:06)
[2023-03-27] MEDS: dexAMETHasone 4 MG in SYRINGE 0 ML IV SCH (08:07)
--- NOTE | 2023-03-27 10:29 | Oral/Maxillofacial Progress Nt ---
Date of Service March 27, 2023 Assessment & Plan Admission and Anticipated Discharge Date Admission Date: March 25, 2023 Subjective Much improved today Taking fluids well No Airway, much less pain on swallowing. There no need for any drainage at this time. Hopefully with oral antibiotics, pain Meds, oral rinses and fluids he will continue to improve. I will have him set up a follow up with me in 10-14 days--He will be calling upon D/C to make arrangements OK for D/C today Results & Data Vital Signs (Past 12 Hours) Vital Signs Temp Pulse Resp BP Pulse Ox O2 Del Method 03/27/23 06:57 36.7 C 63 15 109/54 L 97 Room Air PG Care Time/CCT Total # of Minutes Spent Total Time Spent with Patient: Total time spent is greater than 50% in coordination of care (as documented) at patient's floor/unit and/or counseling patient: Coding Level of Care Code None Diagnoses
--- NOTE | 2023-03-27 10:50 | Discharge Summary ---
Date of Service March 27, 2023 Admission HPI Per Admitting Provider Iban Ward is a 23 year old male who returns ot the ER after recent discharge last night for fever, chills and sore throat. He reports 2-3 days of feeling unless with sore throat, fever and generalized body aches. Associated bilateral sinus pain, mild shortness of breath. No nasal congestion, cough or chest pain. His symptoms became progressively much worse following his hepatitis B vaccination. He was throughly worked up at his prior ER visit including negative lumbar puncture and group A strep PCR throat swab. He was discharged just last night. He received no antibiotics and felt symptoms were viral in natu re. Since discharge he has had a high fever, more fatigued and difficulty swallowing due to sore and swollen throat. He denies any difficulty breathing in. Principal Diagnosis Acute streptococcal tonsillitis, sepsis Discharge Exam General-alert and oriented x3, no fevers, no chills HEENT-head atraumatic and normocephalic, pupils equal and reactive to light, extraocular muscles intact. Tonsillitis has improved Neck-no lymphadenopathy or thyromegaly, trachea midline Chest-clear to auscultation percussion. No rales wheezing or rhonchi Cardiac-regular rate and rhythm, normal S1 and S2 Abdomen-normal bowel sounds, nontender, no hepatosplenomegaly Extremities-no cyanosis, clubbing, or edema Neuro-cranial nerves II through XII intact, motor and sensory function within normal limits, strength symmetrical , no focal deficits Psych-normal affect, normal mood Discharge Data Allergies Allergy/AdvReac Type Severity Reaction Status Date / Time shellfish derived Allergy Severe throat Verified 03/25/23 15:43 swelling wild lebron Allergy Severe Swelling Verified 03/25/23 15:43 of Lip/Tongue/Throat Consultations 03/25/23 15:13 ED Decision to Admit Stat 03/25/23 19:18 Consult Otolaryngology (Head and Neck) Routine Ordered Studies 03/25/23 14:12 CT soft tissue neck wo con Stat 03/25/23 16:19 CT soft tissue neck w con Stat Hospital Course (1) Sepsis: Present on admission. Now resolved (2) Tonsillitis: Much improved with Unasyn and dexamethasone. Group C beta strep isolated. He will be switched to oral amoxicillin at discharge. Steroids have been discontinued. (3) Electrolyte abnormality: Corrected. Potassium and magnesium levels are now normal Plan Home today, March 27, on amoxicillin Total Time Total Time Spent Total Time Spent (In Minutes): 40 minutes Discharge Plan Discharge Items Patient Disposition: Home - Self-Care Reason For Visit: SEPSIS, TONSILITIS Discharge Diagnosis: Tonsillitis Condition on Discharge: Good Activity: Resume your previous activity Lifting: Gradually increase as tolerated Bathing: No limitations Exercise/Sports: Gradually increase as tolerated Driving/Machine Use: Resume 1 day after discharge Weightbearing: Full weightbearing Non-emergency contact: Surgeon Call non-emergency contact if: you have any medication questions, your symptoms worsen, your pain is worsening, your temperature is above 101.5, your wound has increased redness, your wound has increased drainage and your wound pain has increased Follow-up/Referrals: Kush Guzman DMD [Physician] - Victor M Serrano DO [Primary Care Provider] - Diet: Regular, Full liquid and Clear liquid Diet Texture: Easy to Chew Addtl Attending Provider Instructions: ADDITIONAL ACTIVITY RECOMMENDATIONS: * Howe teeth after every meal. It is very important to keep your mouth clean to prevent infection. * Starting tonight rinse with the Peridex as directed then 2 x a day * it is very important to keep well hydrated, SPECIAL CARE INSTRUCTIONS: * Your tonsils should gradually decrease in size within 7-[address] Guzman at [phone] if any recurrence in symptoms * You may experience some discomfort for a few days. If pain or swelling increases, Call Dr Guzman * Return to the office for a follow up check up on: Call for follow up in 10-14 days office address--[address] phone # [phone] Pending Studies at Discharge: No Stand-Alone Forms: My [facility] [employer], Smoking Cessation Medications and DC Order Prescriptions: Continued ergocalciferol (vitamin D2) 1,250 mcg (50,000 unit) capsule 1,250 mcg PO .COMPLEX Qty: 20 2RF Rx Instructions: 1,250 mcg orally Monday and ; amoxicillin-pot clavulanate 875-125 mg tablet 1 tab PO Q12H Qty: 20 0RF hydrocodone-acetaminophen 5-325 mg tablet 1 tab PO Q4H PRN (Reason: pain) Qty: 10 0RF hydroxyzine HCl 25 mg tablet 25 mg PO BID PRN (Reason: Insomnia) sucralfate 1 gram tablet 1 g BID Rx Instructions: GIVEN PER RECTUM, DISSOLVED IN 20 OZ OF H2O. acetaminophen [Tylenol Extra Strength] 500 mg Tablet 1,000 mg PO Q6H PRN (Reason: Pain) ibuprofen 200 mg Tablet 400 mg PO Q6H PRN (Reason: Fever Or Pain) Discharge Orders: Discharge Order (Routine); Ordered 03/27/23 Ordered By: Bandar Morales/Other Patient Handouts: Pharyngitis or Tonsillitis Admission Data Admit Date/Time: 03/25/23 15:59 Attending Provider: Bandar Marcano Admit Provider: Slick Pope Primary Care Provider: Victor M Serrano Other Providers: Slick Pope ; Kush Guzman Coding Level of Care Code 22680 INP/OBS DISCH >30 MIN Diagnoses Sepsis A41.9 Tonsillitis J03.90 Electrolyte abnormality E87.8
--- NOTE | 2023-03-29 17:12 | Electrocardiogram Report ---
Test Reason : Blood Pressure : / mmHG Vent. Rate : 074 BPM Atrial Rate : 074 BPM P-R Int : 118 ms QRS Dur : 080 ms QT Int : 396 ms P-R-T Axes : 035 078 062 degrees QTc Int : 439 ms Normal sinus rhythm T wave abnormality, consider anterior ischemia Abnormal ECG When compared with ECG of 25-MAR-2023 14:20, T wave inversion now evident in Anterior leads Confirmed by Chuy David ([id number]) on 03/29/2023 5:11:50 PM Referred By: Jaime Barnett Confirmed By:Chuy David
[2023-03-30 02:43] LABS: Babesia microti DNA Not Detected (Not Detected)
== END 2023-03-27 13:24 | disposition home or self-care (01) | DRG 872 ==
LOC: ED 13:35 → 2S 15:59 → SUATTDRO 15:59 → 2S 17:07 → 3N 03-26 13:36

== ENCOUNTER 2023-12-25 20:25 | Inpatient (IN) ==
[2023-12-25 20:56] LABS: Basophils # (auto) 0.05 K/uL (0.00-0.20); Basophils % (auto) 0.7 %; Eosinophils # (auto) 0.18 K/uL (0.00-0.50); Eosinophils % (auto) 2.7 %; Hematocrit (blood only) 49.1 % (42.0-52.0); Hemoglobin 16.6 g/dl (14.0-18.0); Immature Granulocytes # (auto) 0.01 K/uL (0.01-0.20); Immature Granulocytes % (auto) 0.1 %; Lymphocytes # (auto) 2.42 K/uL (1.20-3.40); Lymphocytes % (auto) 35.7 %; Mean Corpuscular Hemoglobin 28.1 pg (25.0-34.0); Mean Corpuscular Hgb Conc 33.8 g/dL (32.0-36.0); Mean Corpuscular Volume 83.1 fL (80.0-100.0); Mean Platelet Volume 9.6 fL (9.4-12.4); Monocytes # (auto) 0.55 K/uL (0.11-0.59); Monocytes % (auto) 8.1 %; Neutrophils # (auto) 3.57 K/uL (1.40-6.50); Neutrophils % (auto) 52.7 %; Platelet Count 292 K/uL (130-400); RDW Coefficient of Variation 12.8 % (11.5-14.5); RDW Standard Deviation 38.5 fL (36.4-46.3); Red Blood Count 5.91 M/uL (4.70-6.10); White Blood Count 6.78 K/ul (4.8-10.8)
[2023-12-25 20:56] LABS: Appearance Urine Clear (Clear); Bilirubin Urine Negative (Negative); Blood Urine Negative (Negative); Color Urine Yellow; Glucose Urine UA Negative (Negative); Ketones Urine Negative (Negative); Leukocyte Esterase Urine Negative (Negative); Nitrite Urine Negative (Negative); Protein Urine Negative (Negative); Specific Gravity Urine 1.018 (1.000-1.030); Urobilinogen Urine Negative (Negative); pH Urine 5.5 (4.5-7.5)
[2023-12-25 21:11] LABS: Potassium 3.6 mmol/L (3.5-5.1)
[2023-12-25 21:18] LABS: Amphetamines+Metham, Urine Neg (Neg); Barbiturates, Urine Neg (Neg); Benzodiazepine, Urine Neg (Neg); Cocaine, Urine Neg (Neg); MDMA (Ecstacy), Urine Neg (Neg); Marijuana, Urine Neg (Neg); Methadone, Urine Neg (Neg); Opiate, Urine Neg (Neg); Phencyclidine, Urine Neg (Neg)
[2023-12-25 21:26] LABS: Thyroid Stimulating Hormone 1.842 uIu/ml (0.300-4.500)
--- NOTE | 2023-12-25 21:46 | Emergency Department Note ---
Impression & Plan Depression with suicidal ideation ED Provider Note NAME: CIPRIANO VU AGE: 23 SEX: M : 2000 ARRIVES VIA: Ambulance INFORMANT: Patient, ED PROVIDER(S): Maco Flower DO CHIEF COMPLAINT: Depression HPI: The patient is a 23-year-old male who presented to the emergency department for an evaluation of depression symptoms. The patient arrived with police. The patient was a 302 evaluation that was sworn out by his father. The patient at this time is denying any suicidal homicidal ideation. He admits to previous admissions to mental health facility. He has a history of depression but at this time does not take his medications and he has not seen his primary therapist in a long time. This apparently is the anniversary of a family member who committed suicide as well. When the patient was not heard from his father called the police for a wellness check. The patient was brought to the emergency department for an evaluation. ROS: See above HPI for pertinent positives & negatives. A total of 10 systems reviewed and were otherwise negative. PAST MEDICAL HISTORY: See Below PAST SURGICAL HISTORY: See Below FAMILY HISTORY: See Below SOCIAL HISTORY: See Below HOME MEDICATIONS: See Below ALLERGIES: See Below VITALS: See Below PHYSICAL EXAMINATION: GENERAL: The patient is awake and alert. The patient appears guarded. EYES: The conjunctivae are clear. The pupils are round and reactive. EARS, NOSE, MOUTH AND THROAT: The nose is without any evidence of any deformity. NECK: The neck is nontender and supple. RESPIRATORY: Normal respiratory effort is noted there is no evidence of wheezing rhonchi or rales CARDIOVASCULAR: Regular rate and rhythm noted there no murmurs rubs or gallops normal S1 normal S2. GASTROINTESTINAL: The abdomen is soft. Abdomen is nontender. MUSCULOSKELETAL/EXTREMITIES: There is no evidence of gross deformity full range of motion is noted in the hips and shoulders. SKIN: There is no obvious evidence of any rash. There are no petechiae, pallor or cyanosis noted. NEUROLOGIC: Patient is awake alert and oriented x3 PSYCH: The patient makes poor eye contact mostly evaluation. The patient's affect is flat. The patient is denying any suicidal ideation. MEDICAL DECISION MAKING: Patient is a 23-year-old male who presented to the emergency department for an evaluation of mental health issues. The patient was agreeable to evaluation. The patient was having suicidal ideation. Initially he was reluctant to speak about this but ultimately did come out the patient had written a suicide note. The patient was medically cleared in the emergency department. The patient was evaluated by the mental health transplant case manager. He was felt to be a good candidate for inpatient management so the 302 petition was upheld and the delegate was contacted. Bed search is currently underway. Triage Nursing notes reviewed. Prior medical records reviewed Vital Signs: reviewed and remarkable for no significant abnormalities Differential diagnosis: Mood disorder, infection, hypoglycemia, electrolyte abnormalities, cardiac sources, intracerebral event, toxicologic, trauma, neurologic, as well as other pathologies. ER treatment provided: See below Diagnostics interpreted by me: ECG: none Laboratory studies: As stated above and show below. Imaging studies: See below. Consultation(s): I discussed this case with the emergency departmental health transplant case manager Past Med/Surg History Medical History Encounter for pre-operative examination History of COVID-19 ~2 years ago, PCP test, not hosp; moderate symptoms>resolved. History of seizure "struck in the hinduism during soccer as a child-had one seizure, no issues since then" Major depressive disorder, single episode, severe without psychotic features Panic disorder PTSD (post-traumatic stress disorder) Suicide attempt by hanging hospitalized at [facility] in 01/04/2023 Vitamin D deficiency Surgical History Hx of tooth extraction as child Family History Grandfather (Paternal) Lung cancer Grandmother (Paternal) Myocardial infarction Denies family history of Ovarian cancer Prostate cancer Diabetes Breast cancer Colorectal cancer Stroke Social History Smoking Status: Never smoker Second Hand Exposure: No; Do You Dip or Chew Tobacco: No; Hx Alcohol Use: Yes Alcohol type: beer Hx Substance Use: No Preferred Language: Fijian Communication Ability: Effective Visual Impairment: No Limitations Hearing Ability: Normal 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: Voice Beliefs That Will Affect Care: None marital status: Single Current Living Situation: Alone Current Living Situation Comment: college student current occupational status: student How many Children do You have: 0 Feels Safe at Home: Yes Childhood Exposure to Second-Hand Smoke: No caffeine: Yes Dental Care, Regularly: Yes Physical Activity Frequency: Daily Seatbelt Use: always Sunscreen Use: Yes Gender Identity: Male Assistive Devices: None Allergies Allergies Allergy/AdvReac Type Severity Reaction Status Date / Time shellfish derived Allergy Severe throat Verified 11/14/23 12:55 swelling wild lebron Allergy Severe Swelling Verified 11/14/23 12:55 of Lip/Tongue/Throat Home Meds Home Medications Medication Instructions Recorded Confirmed hydroxyzine HCl 25 mg tablet 25 mg PO BID PRN Insomnia 02/09/23 11/14/23 acetaminophen 500 mg tablet 1,000 mg PO Q6H PRN Pain 03/25/23 11/14/23 (Tylenol Extra Strength) Previous Rx's Medication Instructions Recorded valacyclovir 1 gram tablet 1,000 mg PO BID #14 tabs 04/03/23 sucralfate 100 mg/mL oral 2 g (20 mL) AR BID #1,200 mL 09/29/23 suspension Results & Data (ED) Vital Signs Vital Signs - 24 hr 12/25/23 20:32 12/25/23 20:48 Temperature 36.7 C 36.7 C Temperature Source Oral Oral Pulse Rate 73 Pulse Rate [Finger] 73 Respiratory Rate 18 18 Blood Pressure 125/71 Blood Pressure [Left Arm] 125/71 Blood Pressure Mean 89 Blood Pressure Mean [Left Arm] 89 Pulse Oximetry 98 98 Oxygen Delivery Method Room Air Room Air Sepsis Recent Fever Within 48 Hours No Sepsis New/Unexplained Change in Mental Status No Sepsis Action Taken by Nursing No Action Required Home Medications Current Medication List: was personally reviewed by me Laboratory Data Attestation: I reviewed the patient's lab results. 12/25/23 20:34 12/25/23 20:34 Lab Results 12/25/23 12/25/23 Range/Units 20:30 20:34 WBC 6.78 (4.8-10.8) K/ul RBC 5.91 (4.70-6.10) M/uL Hgb 16.6 (14.0-18.0) g/dl Hct 49.1 (42.0-52.0) % MCV 83.1 (80.0-100.0) fL MCH 28.1 (25.0-34.0) pg MCHC 33.8 (32.0-36.0) g/dL RDW Std Deviation 38.5 (36.4-46.3) fL RDW Coeff of Paul 12.8 (11.5-14.5) % Plt Count 292 (130-400) K/uL MPV 9.6 (9.4-12.4) fL Immature Gran % (Auto) 0.1 % Neut % (Auto) 52.7 % Lymph % (Auto) 35.7 % [place] % (Auto) 8.1 % Eos % (Auto) 2.7 % Baso % (Auto) 0.7 % Neut # (Auto) 3.57 (1.40-6.50) K/uL Lymph # (Auto) 2.42 (1.20-3.40) K/uL [place] # (Auto) 0.55 (0.11-0.59) K/uL Eos # (Auto) 0.18 (0.00-0.50) K/uL Baso # (Auto) 0.05 (0.00-0.20) K/uL Immature Gran # (Auto) 0.01 (0.01-0.20) K/uL Sodium 138 (136-145) mmol/L Potassium 3.6 (3.5-5.1) mmol/L Chloride 103 (98-107) mmol/L Carbon Dioxide 27 (21-32) mmol/L Anion Gap 8 (3-11) BUN 10 (6-23) mg/dl Creatinine 0.94 (0.6-1.4) mg/dl Est Cr Clr Drug Dosing 99.0 ml/min Est GFR ( Amer) 132.9 Est GFR (Non-Af Amer) 114.6 BUN/Creatinine Ratio 10.6 (10-20) Glucose 85 (70-99(Fasting)) mg/dl Calcium 9.5 (8.6-10.3) mg/dl Total Bilirubin 0.8 (0.2-1.0) mg/dl AST 31 (13-39) U/L ALT 23 (7-52) U/L Alkaline Phosphatase 61 (34-104) U/L Total Protein 7.1 (6.0-8.3) gm/dl Albumin 4.4 (3.4-5.0) gm/dl Globulin 2.7 (2.5-4.0) gm/dl Albumin/Globulin Ratio 1.6 (0.9-2) TSH 1.842 (0.300-4.500) uIu/ml Urine Color Yellow Urine Appearance Clear (Clear) Urine pH 5.5 (4.5-7.5) Ur Specific [place] 1.018 (1.000-1.030) Urine Protein Negative (Negative) Urine Glucose (UA) Negative (Negative) Urine Ketones Negative (Negative) Urine Blood Negative (Negative) Urine Nitrite Negative (Negative) Urine Bilirubin Negative (Negative) Urine Urobilinogen Negative (Negative) Ur Leukocyte Esterase Negative (Negative) Salicylates < 3.0 L (3.0-30) mg/dl Urine Opiates Screen Neg (Neg) Ur Methadone, Qual Neg (Neg) Acetaminophen < 3 L (10-30) ug/ml Urine Barbiturates Neg (Neg) Ur Phencyclidine (PCP) Neg (Neg) U Amphetamin/Meth Scrn Neg (Neg) MDMA (Ecstasy) Screen Neg (Neg) U Benzodiazepines Scrn Neg (Neg) Ur Cocaine Metabolite Neg (Neg) U Marijuana (THC) Screen Neg (Neg) Ethyl Alcohol mg/dL < 10.0 (<10.0) mg/dl SARS-CoV-2, RNA, NAAT NEGATIVE (NEGATIVE) Administered Medications Discontinued Medications Lorazepam (Lorazepam 1 Mg Tab) 1 mg PO NOW STA Stop: 12/25/23 23:27 Last Admin: 12/25/23 23:45 Dose: 1 mg Documented By: JULIENNE Discharge Plan Visit Data Chief Complaint: Mental Health Evaluation ED Provider: Maco Flower Discharge Problem: Depression with suicidal ideation Patient Disposition: Still a Patient Forms Stand Alone Forms: My [facility], Suicide Prevention Resources Prescriptions Prescriptions: No Action valacyclovir 1 gram tablet 1,000 mg PO BID Qty: 14 2RF sucralfate 100 mg/mL suspension 2 g AR BID Qty: 1200 0RF hydroxyzine HCl 25 mg tablet 25 mg PO BID PRN (Reason: Insomnia) acetaminophen [Tylenol Extra Strength] 500 mg Tablet 1,000 mg PO Q6H PRN (Reason: Pain)
[2023-12-25 21:50] LABS: Albumin Globulin Ratio 1.6 (0.9-2); Albumin Level 4.4 gm/dl (3.4-5.0); BUN Creatinine Ratio 10.6 (10-20); Bilirubin,Total 0.8 mg/dl (0.2-1.0); Calcium 9.5 mg/dl (8.6-10.3); Globulin 2.7 gm/dl (2.5-4.0); Total Protein 7.1 gm/dl (6.0-8.3)
[2023-12-25 21:56] LABS: Est GFR (African American) 132.9; Est GFR (Non-African American) 114.6
[2023-12-25 21:57] LABS: Acetaminophen < 3 ug/ml (10-30); Salicylate < 3.0 mg/dl (3.0-30)
[2023-12-25] MEDS: LORazepam 1 MG TAB PO STA (23:45)
[2023-12-26] MEDS ORDERED: ACETAMINOPHEN 325 MG TAB PO PRN (01:01)
[2023-12-26] MEDS ORDERED: ALUMINUM/MAGNESIUM SUSP 30 ML UDC PO PRN (01:01)
[2023-12-26] MEDS ORDERED: BISMUTH SUBSALICYLATE LIQD 236 ML PO PRN (01:01)
[2023-12-26] MEDS ORDERED: hydrOXYzine HCl 25 MG TAB PO PRN (01:01)
[2023-12-26] MEDS ORDERED: SODIUM CHLORIDE 0.65% NA SOLN 45 ML (OCEAN) PRN (01:01)
[2023-12-26] MEDS ORDERED: MAGNESIUM HYDROXIDE SUSP 30 ML UDC PO PRN (01:01)
[2023-12-26] MEDS: hydrOXYzine HCl 25 MG TAB PO PRN (01:13)
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
[2023-12-27] MEDS: buPROPion XL 150 MG TABCR PO SCH (08:37)
[2023-12-27] MEDS ORDERED: SENNA 8.6 MG TAB PO PRN (08:50)
[2023-12-27] MEDS ORDERED: DOCUSATE SODIUM 100 MG CAP PO PRN (08:50)
--- NOTE | 2023-12-27 15:57 | Psychiatric Progress Note ---
Date of Service December 27, 2023 Impression / Recommendations Impression 23 yo man with a history of PTSD, depression, anxiety admitted on 302 commitment for depression and SI with possible rehearsal behaviors and significant hopelessness. Diagnostically consistent with severe major depressive disorder as well as possible anxiety and PTSD per history. He is deemed in need of psychiatric hospitalization for diagnostic clarification, safety and stabilization, medication management and development of further coping skills. 302 commitment expires on 12/30/2023 at ~6pm. 12/27/2023: Minimizes recent events and denies current SI but presents as significantly depressed with flat affect, non-expansive thought process and concern for recent possible rehearsal behaviors (moving possessions, breaking phone, statements of wanting to to his father, and possible suicide note found by police) as well as reports for poor self-care with decreased po intake, quit his job, financial strain prior to admission. Will continue with trial of Wellbutrin per his preference while monitoring for any worsening of side effects. Side effects may also be due to somatic focus of anxiety given statements in 302 of his previous beliefs that any psychiatric medication will lead to medical issues. Today I spent about 60 minutes on the case. This included meeting with the patient, reviewing the chart, nursing report, multidisciplinary team meeting, orders, and documentation. (1) Major depressive disorder, single episode, severe without psychotic features: (2) Post traumatic stress disorder (PTSD): Plan 12/27/2023: Continue Wellbutrin XL 150mg daily. CAMS to assess suicidality. Suicide Risk Level Suicide Risk Level: High-Moderate (q15 min suicide checks) (recent statements of SI, severe depression but feels safe on the unit and agrees to let nurses know if he feels unable to remain safe or requires additional support) Protective Factors Assessment Employed: No Interval History Identifying Information CIPRIANO VU is a 23-year-old M from [place] who presented via police on a 302 involuntary commitment due to concerns of suicidal ideation and severe depression. Chief Complaint "Just a little stressed". Review of Systems Sleep Information Total Hours of Sleep: 6.5 Sleep Comments: Meal Information Percent Meal Consumed - Breakfast: 100 Percent Meal Consumed - Lunch: 100 Percent Meal Consumed - Dinner: 100 Nutrition Comment: Subjective Subjective Patient was seen & assessed and interval progress reviewed with treatment team nursing and social work. He reports some possible side effects from Wellbutrin including sensation of "hot flashes", "tingling in my hand" and "tiny bit of nausea" which occurred a few times this morning and he experienced them again toward the end of our interview in the afternoon. He wants to continue with Wellbutrin trial for now though. Reports his worsening mental health asa significant stressor leading to financial strain, is trying to contact his grandmother to see if he could live with her. Less forthcoming about SI and events leading to hospitalization, feels his father overreacted. Physical Exam Psychiatric Orientation: alert and oriented x 3 Apperance: appropriately dressed Eye Contact: + fair eye contact Motor Behavior: steady gait and station and no abnormal motor movements Speech: normal rate/rhythm/volume of speech (soft) Affect: + flat affect Mood: + depressed mood and + anxious mood Thought Process: + circumstantial thought process Thought Content: reality based without delusions (minimizes) Suicidal Thoughts: denies suicidal thoughts (but has been minimizing ) Homicidal Thoughts: denies homicidal thoughts Hallucinations: no auditory hallucinations and no visual hallucinations Estimated Intelligence: average estimated intelligence Insight: + limited insight Judgment: + limited judgement Vital Signs (Past 24 Hours) Last Vital Signs Temp 36.4 C L 12/27/23 06:13 Pulse 85 12/27/23 06:13 Resp 16 12/27/23 06:13 BP 114/68 12/27/23 06:13 Pulse Ox 96 12/27/23 06:13 O2 Del Method Room Air 12/27/23 06:13 Results & Data ([facility]) Current Inpatient Medications Current Inpatient Medications: Current Inpatient Medications Acetaminophen (Acetaminophen 325 Mg Tab) 650 mg PO Q4H PRN PRN Reason: Headache or Minor Fever Stop: 01/25/24 01:00 Al Hydrox/Mg Hydrox/Simethicone (Aluminum/Magnesium Susp 30 Ml Udc) 30 ml PO Q4H PRN PRN Reason: GI Upset Stop: 01/25/24 01:00 Bismuth Subsalicylate (Bismuth Subsalicylate Liqd 236 Ml) 15 ml PO PRN PRN PRN Reason: Loose Stool Stop: 01/25/24 01:00 Bupropion HCl (Bupropion Xl 150 Mg Tabcr) 150 mg PO QAM JUANJOSE Stop: 01/26/24 08:59 Last Admin: 12/27/23 08:37 Dose: 150 mg Docusate Sodium (Docusate Sodium 100 Mg Cap) 100 mg PO BID PRN PRN Reason: Constipation Stop: 01/26/24 08:59 Hydroxyzine HCl (Hydroxyzine Hcl 25 Mg Tab) 50 mg PO HSZ PRN PRN Reason: Insomnia Stop: 01/25/24 01:00 Last Admin: 12/26/23 22:15 Dose: 50 mg Hydroxyzine HCl (Hydroxyzine Hcl 25 Mg Tab) 25 mg PO Q4H PRN PRN Reason: Anxiety Stop: 01/25/24 01:00 Magnesium Hydroxide (Magnesium Hydroxide Susp 30 Ml Udc) 30 ml PO DAILY PRN PRN Reason: Constipation Stop: 01/25/24 01:00 Sennosides (Senna 8.6 Mg Tab) 8.6 mg PO QAM PRN PRN Reason: Constipation Stop: 01/26/24 08:59 Sodium Chloride (Sodium Chloride 0.65% Na Soln 45 Ml ([place])) 1 - 2 sprays NA PRN PRN PRN Reason: Nasal Dryness/Congestion Stop: 01/25/24 01:00
--- NOTE | 2023-12-28 09:14 | Psychiatric Progress Note ---
Date of Service December 28, 2023 Impression / Recommendations Impression 23 yo man with a history of PTSD, depression, anxiety admitted on 302 commitment for depression and SI with possible rehearsal behaviors and significant hopelessness. Diagnostically consistent with severe major depressive disorder as well as possible anxiety and PTSD per history. He is deemed in need of psychiatric hospitalization for diagnostic clarification, safety and stabilization, medication management and development of further coping skills. 302 commitment expires on 12/30/2023 at ~6pm. 12/28/2023: Feeling tired and a reluctance to engage in conversation. Discussed medication treatment options as he experienced side effects with Wellbutrin. Discussed risks, benefits and alternatives. He consents to mirtazapine for anxiety/depression/insomnia. Reviewed side effects including but not limited to: sedation, increased appetite, counseled on black box warning of potential for emergence of or increased SI and need to let staff know should this occur or should they feel unsafe. Also discussed importance of seeking emergency care following discharge if this side effect occurs in the future. Concern that he may be feeling more hopeless due to side effects from Wellbutrin trial given reported comments in 302 petition that he's told his father he feels no psychiatric medications can help without causing medical issues. 12/27/2023: Minimizes recent events and denies current SI but presents as sign ificantly depressed with flat affect, non-expansive thought process and concern for recent possible rehearsal behaviors (moving possessions, breaking phone, statements of wanting to to his father, and possible suicide note found by police) as well as reports for poor self-care with decreased po intake, quit his job, financial strain prior to admission. Will continue with trial of Wellbutrin per his preference while monitoring for any worsening of side effects. Side effects may also be due to somatic focus of anxiety given statements in 302 of his previous beliefs that any psychiatric medication will lead to medical issues. Today I spent about 35 minutes on the case. This included meeting with the patient, reviewing the chart, nursing report, multidisciplinary team meeting, orders, and documentation. (1) Major depressive disorder, single episode, severe without psychotic features: (2) Post traumatic stress disorder (PTSD): (3) SELVIN (generalized anxiety disorder): Plan 12/28/2023: * Discontinue Wellbutrin * Start mirtazapine 7.5mg HS with goal of further titration as tolerated 12/27/2023: Continue Wellbutrin XL 150mg daily. CAMS to assess suicidality. Suicide Risk Level Suicide Risk Level: High-Moderate (q15 min suicide checks) (recent statements of SI, depression but now denying SI and feels safe on the unit and agrees to let nurses know if he feels unable to remain safe or requires additional support but also more withdrawn today') Protective Factors Assessment Employed: No Interval History Identifying Information CIPRIANO VU is a 23-year-old M from [place] who presented via police on a 302 involuntary commitment due to concerns of suicidal ideation and severe depression. Chief Complaint "Can we not talk right now". Review of Systems Sleep Information Total Hours of Sleep: 8.30 Meal Information Percent Meal Consumed - Breakfast: 100 Percent Meal Consumed - Lunch: 100 Percent Meal Consumed - Dinner: 100 Subjective Subjective Patient was seen & assessed and interval progress reviewed with treatment team nursing and social work. Attended groups last evening, went to bed early. Declined Wellbutrin XL this morning. He reports having trouble sleeping last night and is feeling tired today. He expresses a reluctance to engage in conversation due to his fatigue. Cipriano's mood is not clearly described, but he appears to be experiencing some level of distress. Cipriano mentions that he has decided not to take Wellbutrin due to experiencing side effects. He is hesitant to try a new medication, Mirtazapine, immediately and prefers to wait until tomorrow but agrees he could consider a lower dose tonight for anxiety/depression. He denies having suicidal thoughts today. Physical Exam Psychiatric Orientation: alert and oriented x 3 Apperance: + disheveled (under the covers) Eye Contact: + poor eye contact Motor Behavior: no abnormal motor movements Speech: normal rate/rhythm/volume of speech (soft) Affect: + flat affect Mood: + depressed mood and + anxious mood Thought Process: + circumstantial thought process Thought Content: reality based without delusions Suicidal Thoughts: denies suicidal thoughts (but has been minimizing ) Homicidal Thoughts: denies homicidal thoughts Hallucinations: no auditory hallucinations and no visual hallucinations Estimated Intelligence: average estimated intelligence Insight: + limited insight Judgment: + limited judgement Vital Signs (Past 24 Hours) Last Vital Signs Temp 35.9 C L 12/28/23 06:00 Pulse 88 12/28/23 06:21 Resp 16 12/28/23 06:00 BP 109/69 12/28/23 06:21 Pulse Ox 96 12/27/23 06:13 O2 Del Method Room Air 12/27/23 06:13 Results & Data ([facility]) Current Inpatient Medications Current Inpatient Medications: Current Inpatient Medications Acetaminophen (Acetaminophen 325 Mg Tab) 650 mg PO Q4H PRN PRN Reason: Headache or Minor Fever Stop: 01/25/24 01:00 Al Hydrox/Mg Hydrox/Simethicone (Aluminum/Magnesium Susp 30 Ml Udc) 30 ml PO Q4H PRN PRN Reason: GI Upset Stop: 01/25/24 01:00 Bismuth Subsalicylate (Bismuth Subsalicylate Liqd 236 Ml) 15 ml PO PRN PRN PRN Reason: Loose Stool Stop: 01/25/24 01:00 Bupropion HCl (Bupropion Xl 150 Mg Tabcr) 150 mg PO QAM JUANJOSE Stop: 01/26/24 08:59 Last Admin: 12/27/23 08:37 Dose: 150 mg Docusate Sodium (Docusate Sodium 100 Mg Cap) 100 mg PO BID PRN PRN Reason: Constipation Stop: 01/26/24 08:59 Hydroxyzine HCl (Hydroxyzine Hcl 25 Mg Tab) 50 mg PO HSZ PRN PRN Reason: Insomnia Stop: 01/25/24 01:00 Last Admin: 12/26/23 22:15 Dose: 50 mg Hydroxyzine HCl (Hydroxyzine Hcl 25 Mg Tab) 25 mg PO Q4H PRN PRN Reason: Anxiety Stop: 01/25/24 01:00 Magnesium Hydroxide (Magnesium Hydroxide Susp 30 Ml Udc) 30 ml PO DAILY PRN PRN Reason: Constipation Stop: 01/25/24 01:00 Sodium Chloride (Sodium Chloride 0.65% Na Soln 45 Ml ([place])) 1 - 2 sprays NA PRN PRN PRN Reason: Nasal Dryness/Congestion Stop: 01/25/24 01:00
[2023-12-28] MEDS: MIRTAZAPINE TAB 15 MG TAB PO SCH (21:29)
--- NOTE | 2023-12-29 08:58 | Psychiatric Progress Note ---
Date of Service December 29, 2023 Impression / Recommendations Impression 23 yo man with a history of PTSD, depression, anxiety admitted on 302 commitment for depression and SI with possible rehearsal behaviors and significant hopelessness. Diagnostically consistent with severe major depressive disorder as well as possible anxiety and PTSD per history. He is deemed in need of psychiatric hospitalization for diagnostic clarification, safety and stabilization, medication management and development of further coping skills. 302 commitment expires on 12/30/2023 at ~6pm. 12/29/2023: HE continues to feel tired which today he identifies as due to his roommates snoring but is more engaged today and has been out of bed. Discussed expiration of his 302 tomorrow and recommendation that he agree to stay longer on a volunatry basis to continue with medication adjustments and looking into outpatient therapy options since IOP he feels will be financially too much of a burden given high co-pays. He is opposed to signing in voluntarily and at this point he is not felt to meet 303 criteria as he is denying SI, engaging in support meeting, and meeting personal self-care needs. He doesn't want to increase the mirtazapine so will continue at low dose, discussed that anxious thoughts as side effect would be unusual and if anything mirtazapine should help with this. He is agreeable to CM referral. Discussed IPT as he feels CBT has never been helpful. Will move his room in further attempt to aid with sleep promotion. Today I spent about 50 minutes on the case. This included meeting with the patient, reviewing the chart, nursing report, multidisciplinary team meeting, orders, and documentation. (1) Major depressive disorder, single episode, severe without psychotic features: (2) Post traumatic stress disorder (PTSD): (3) SELVIN (generalized anxiety disorder): Plan 12/29/2023: Continue current medications and tx plan. Having support meeting today. 12/28/2023: * Discontinue Wellbutrin * Start mirtazapine 7.5mg HS with goal of further titration as tolerated 12/27/2023: Continue Wellbutrin XL 150mg daily. CAMS to assess suicidality. Suicide Risk Level Suicide Risk Level: Moderate (q15 min suicide checks) (recent statements of SI, depression but now denying SI and more engaged in the unit, feels safe on the unit and agrees to let nurses know if he feels unable to remain safe or requires additional support ') Protective Factors Assessment Employed: No Interval History Identifying Information CIPRIANO VU is a 23-year-old M from [place] who presented via police on a 302 involuntary commitment due to concerns of suicidal ideation and severe depression. Chief Complaint "Tired". Review of Systems Sleep Information Total Hours of Sleep: 6.30 Sleep Comments: Requested PRN Vistaril with HS Remeron Meal Information Percent Meal Consumed - Breakfast: 100 Percent Meal Consumed - Lunch: 0 Percent Meal Consumed - Dinner: 100 Subjective Subjective Slept 6.5 hours last night, doesn't feel he slept great. Up this morning having breakfast with a peer. Cipriano was seen & assessed, and his progress was reviewed with the treatment team. He expresses frustration with his current room on the unit due to his roommate's snoring, which has been disrupting his sleep. He cites this as the reason for his daytime fatigue and isolation at times so he can nap during the day. He is eager to leave the facility and return to his grandmother's home. He reports no recent suicidal thoughts but feels stressed by financial and family issues. He continues to deny writing or having any SI prior to admission rather emphasizes that he wrote a poem to express himself as that's how he deals with stress like having to move out of his apartment. Cipriano has previously engaged in Cognitive Behavioral Therapy and received homework assignments like thought logs. He is uncertain about whether he has tried Dialectical Behavioral Therapy or Interpersonal Therapy but has not found therapy beneficial in the past, leading to discontinuation. He is not interested in any therapy referals currently and notes that IOP previously was an additi onal financial burden due to high co-pays. He is agreeable to case management referral. After trying mirtazapine for the first time last night, he experienced anxiety and "racing thoughts," which he notes may be attributed to the medication or sleep deprivation. A higher dose of 15 milligrams has been suggested but he prefers to continue with the low dose. He feels that Hydroxyzine (Vistaril) has been effective for his anxiety and sleep issues. He is not willing to sign in voluntarily, though this was offered, as he feels further hospitalization after expiration of his 302 commitment would not be helpful. He has been talking to his grandmother and is agreeable to a support meeting with her today. Physical Exam Psychiatric Orientation: alert and oriented x 3 Apperance: appropriately dressed and appropriately groomed Eye Contact: good eye contact Motor Behavior: no abnormal motor movements Speech: normal rate/rhythm/volume of speech Affect: + constricted affect Mood: + anxious mood Thought Process: goal directed thought process and clear/coherent thought process Thought Content: reality based without delusions Suicidal Thoughts: denies suicidal thoughts Homicidal Thoughts: denies homicidal thoughts Hallucinations: no auditory hallucinations and no visual hallucinations Estimated Intelligence: average estimated intelligence Insight: + limited insight Judgment: + limited judgement Vital Signs (Past 24 Hours) Last Vital Signs Temp 36.8 C 12/29/23 06:31 Pulse 78 12/29/23 06:31 Resp 16 12/29/23 06:31 BP 111/69 12/29/23 06:31 Pulse Ox 96 12/27/23 06:13 O2 Del Method Room Air 12/27/23 06:13 Results & Data ([facility]) Current Inpatient Medications Current Inpatient Medications: Current Inpatient Medications Acetaminophen (Acetaminophen 325 Mg Tab) 650 mg PO Q4H PRN PRN Reason: Headache or Minor Fever Stop: 01/25/24 01:00 Al Hydrox/Mg Hydrox/Simethicone (Aluminum/Magnesium Susp 30 Ml Udc) 30 ml PO Q4H PRN PRN Reason: GI Upset Stop: 01/25/24 01:00 Bismuth Subsalicylate (Bismuth Subsalicylate Liqd 236 Ml) 15 ml PO PRN PRN PRN Reason: Loose Stool Stop: 01/25/24 01:00 Docusate Sodium (Docusate Sodium 100 Mg Cap) 100 mg PO BID PRN PRN Reason: Constipation Stop: 01/26/24 08:59 Hydroxyzine HCl (Hydroxyzine Hcl 25 Mg Tab) 50 mg PO HSZ PRN PRN Reason: Insomnia Stop: 01/25/24 01:00 Last Admin: 12/28/23 22:48 Dose: 50 mg Hydroxyzine HCl (Hydroxyzine Hcl 25 Mg Tab) 25 mg PO Q4H PRN PRN Reason: Anxiety Stop: 01/25/24 01:00 Magnesium Hydroxide (Magnesium Hydroxide Susp 30 Ml Udc) 30 ml PO DAILY PRN PRN Reason: Constipation Stop: 01/25/24 01:00 Mirtazapine (Mirtazapine Tab 15 Mg Tab) 7.5 mg PO HS JUANJOSE Stop: 01/27/24 21:59 Last Admin: 12/28/23 21:29 Dose: 7.5 mg Sodium Chloride (Sodium Chloride 0.65% Na Soln 45 Ml ([place])) 1 - 2 sprays NA PRN PRN PRN Reason: Nasal Dryness/Congestion Stop: 01/25/24 01:00
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
== END 2023-12-30 13:00 | disposition home or self-care (01) | DRG 885 ==
LOC: EDSEX → ED 20:25 → SUATTDRO 12-26 00:14 → 3S 12-26 00:14

== ENCOUNTER 2025-08-23 22:58 | Inpatient (IN) ==
--- NOTE | 2025-08-23 23:07 | Emergency Department Note ---
ED Provider Note CHIEF COMPLAINT: [] HISTORY OF PRESENTING ILLNESS: [] REVIEW OF SYSTEMS: See HPI for pertinent positives and pertinent negatives. ALLERGIES: See below MEDICATIONS: See below PAST MEDICAL HISTORY: See below PHYSICAL EXAM: [] DIFFERENTIAL DIAGNOSIS: [] ED COURSE AND MEDICAL DECISION MAKING: HISTORY FROM INDEPENDENT HISTORIAN: [] MEDICATIONS GIVEN: [] MONITOR: Continuous sow farm manager: Order was placed for continuous sow farm manager. Patient was placed on the sow farm manager and continuous pulse ox. Patient was noted to be in normal sinus rhythm at an initial rate of [] bpm per my interpretation. EKG: EKG was interpreted by myself as []. INTERPRETATION OF LABS: I interpreted the labs with full lab results as below in the lab section of this note. Pertinent lab results discussed in the MDM section below. INTERPRETATION OF IMAGING: Imaging studies were interpreted by myself and read by radiology as per the imaging section of this note. EXTERNAL RECORDS REVIEWED: [] CHRONIC MEDICAL/SOCIAL CONDITIONS AFFECTING CARE: [] ESCALATION OF CARE CONSIDERED: [] CONSULTATIONS: [] PROCEDURES: [] MDM SUMMARY: The patient is a pleasant, [] who arrives to the emergency department for evaluation of the above-stated complaint. []. DIAGNOSIS: [] The chart was completed utilizing [employer] Speech voice recognition software. Grammatical errors, random word insertions, pronoun errors, and incomplete sentences are an occasional consequence of this system due to software limitations, ambient noise, and hardware issues. Any formal questions or concerns about the content, text, or information contained within the body of this dictation should be directly addressed to the provider for clarification. TREATMENT PLAN/DISCHARGE INSTRUCTIONS: [] Past Med/Surg History Problem List Fatigue (Chronic) TSH elevation SELVIN (generalized anxiety disorder) Anxiety Electrolyte abnormality Leukocytosis (Acute) Hypomagnesemia (Acute) Hypokalemia (Acute) Acute tonsillitis (Acute) Fever (Acute) Tonsillitis Sepsis Rectal ulcer Rectal pain Encounter for pre-operative examination Vitamin D deficiency Post traumatic stress disorder (PTSD) provisional Major depressive disorder, single episode, severe without psychotic features Panic disorder Medical History HIV (human immunodeficiency virus infection) HSV (herpes simplex virus) anogenital infection Rectal ulcer Depression PTSD (post-traumatic stress disorder) Vitamin D deficiency History of seizure Suicide attempt by hanging Surgical History History of colonoscopy Hx of tooth extraction Family History Grandfather (Paternal) Lung cancer Grandmother (Paternal) Myocardial infarction Other No family history of adverse response to anesthesia Denies family history of Ovarian cancer Prostate cancer Diabetes Breast cancer Colorectal cancer Stroke Social History Smoking Status: Never smoker Second Hand Exposure: No; Do You Dip or Chew Tobacco: No; Hx Alcohol Use: No Preferred Language: Upper Sorbian Communication Ability: Effective Visual Impairment: No Limitations Hearing Ability: Normal Customer Business Manager Required: No Beliefs That Will Affect Care: None marital status: Single Current Living Situation: Family Current Living Situation Comment: with father current occupational status: student How many Children do You have: 0 Feels Safe at Home: Yes Childhood Exposure to Second-Hand Smoke: No caffeine: Yes Dental Care, Regularly: Yes Physical Activity Frequency: Daily Seatbelt Use: always Sunscreen Use: Yes Gender Identity: Male Assistive Devices: None Allergies Allergies Allergy/AdvReac Type Severity Reaction Status Date / Time shellfish derived Allergy Severe throat Verified 07/15/25 16:31 swelling [place] Allergy Severe Swelling Verified 07/15/25 16:31 of Lip/Tongue/Throat Home Meds Home Medications Medication Instructions Recorded Confirmed cholecalciferol (vitamin D3) 125 250 mcg PO DAILY 02/01/24 07/15/25 mcg (5,000 unit) tablet (Vitamin D3) cabotegravir ER 600 mg/3 ml IM 07/04/25 07/15/25 mL-rilpivirine ER 900 mg/3mL IM suspension,ER (Cabenuva) Previous Rx's Medication Instructions Recorded valacyclovir 1 gram tablet 1,000 mg PO BID PRN cold sore 11/07/24 outbreak #14 tabs Results & Data (ED) Vital Signs Vital Signs - 24 hr 08/23/25 23:00 Temperature 37.9 C H Temperature Source Oral Pulse Rate 121 H Pulse Rhythm Regular Pulse Strength Normal Respiratory Rate 20 Respiratory Effort / Characteristics Non-Labored Spontaneous Respiratory Depth Normal Respiratory Pattern Regular Blood Pressure 117/69 Blood Pressure Mean 85 Blood Pressure Position Sitting Pulse Oximetry 95 Oxygen Delivery Method Room Air Sepsis Recent Fever Within 48 Hours Yes Sepsis New/Unexplained Change in Mental Status N/A Sepsis Action Taken by Nursing No Action Required Discharge Plan Visit Data Chief Complaint: Sore Throat Stated Complaint: SWOLLEN TONSILS ED Provider: Debra Villaseñor ED Midlevel Provider: Radha Bartlett Forms Stand Alone [facility] Prescriptions Prescriptions: No Action valacyclovir 1 gram tablet 1,000 mg PO BID PRN (Reason: cold sore outbreak) Qty: 14 2RF Cabenuva 600 mg/3 mL- 900 mg/3 mL suspension,extended release IM cholecalciferol (vitamin D3) [Vitamin D3] 125 mcg (5,000 unit) Tablet 250 mcg PO DAILY Referrals Referrals: Victor M Serrano DO [Primary Care Provider] -
[2025-08-23] MEDS: dexAMETHasone**PF** 10 MG/ML VIAL PO STA (23:18)
[2025-08-23] MEDS: SODIUM CHLORIDE 0.9% 1,000 ML IV ONE (23:19)
[2025-08-23] MEDS: ACETAMINOPHEN 1,000 MG/100 ML VIAL IV STA (23:20)
[2025-08-23 23:36] LABS: Hematocrit (blood only) 43.7 % (42.0-52.0); Hemoglobin 15.1 g/dL (14.0-18.0); Immature Granulocytes # (auto) 0.07 K/uL (0.01-0.20); Immature Granulocytes % (auto) 0.4 %; Mean Corpuscular Hemoglobin 27.9 pg (25.0-34.0); Mean Corpuscular Volume 80.8 fL (80.0-100.0); Platelet Count 234 K/uL (130-400); RDW Standard Deviation 38.0 fL (36.4-46.3); Red Blood Count 5.41 M/uL (4.70-6.10); White Blood Count 15.70 K/ul (4.8-10.8)
[2025-08-23] MEDS: KETOROLAC TROMETHAMINE 15 MG/ML VIAL IV ONE (23:45)
[2025-08-23] MEDS: diphenhydrAMINE 50 MG/ML VIAL IV ONE (23:47)
[2025-08-23 23:51] LABS: Alanine Aminotransferase 21.0 U/L (7-52); Albumin Globulin Ratio 1.0 (0.9-2); Albumin Level 3.9 gm/dl (3.4-5.0); Alkaline Phosphatase 51.0 U/L (34-104); Anion Gap 8.0 (3-11); Bilirubin,Total 0.9 mg/dl (0.2-1.0); Blood Urea Nitrogen 10.0 mg/dl (6-23); Calcium 9.1 mg/dl (8.6-10.3); Carbon Dioxide 22.0 mmol/L (21-32); Chloride 101.0 mmol/L (98-107); Creatinine Clr Calc Pharmacy 105.4 ml/min; Globulin 3.9 gm/dl (2.5-4.0); Glucose 136.0 mg/dl (70-99(Fasting)); Potassium 3.6 mmol/L (3.5-5.1); Sodium 131.0 mmol/L (136-145); Total Protein 7.8 gm/dl (6.0-8.3)
[2025-08-24] MEDS: OPTIRAY 320 100ml IV ONE (00:11)
[2025-08-24] MEDS: AMPICILLIN/SULBACTAM SOD 3,000 MG/100 ML BAG IV STA (00:19)
[2025-08-24 00:32] LABS: Chlamydia pneumoniae PCR Not Detected (NotDetected); Coronavirus 229E PCR Not Detected (NotDetected); Coronavirus CoV-2 (COVID19)PCR Not Detected (NotDetected); Coronavirus HKU1 PCR Not Detected (NotDetected); Coronavirus NL63 PCR Not Detected (NotDetected); Coronavirus OC43PCR Not Detected (NotDetected); Human Metapneumovirus PCR Not Detected (NotDetected); Parainfluenza Virus 1 PCR Not Detected (NotDetected); Parainfluenza Virus 2 PCR Not Detected (NotDetected); Parainfluenza Virus 3 PCR Not Detected (NotDetected); Parainfluenza Virus 4 PCR Not Detected (NotDetected); Respiratory Syncytial VirusPCR Not Detected (NotDetected); Rhinovirus/Enterovirus PCR Not Detected (NotDetected)
--- NOTE | 2025-08-24 01:04 | CT Scan Report ---
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 Contiguous axial images were obtained. Reformatted coronal and sagittal images were also reviewed. If IV contrast material had not been administered, the likelihood of detecting abnormalities relevant to the patient's condition would have been substantially decreased. CT scan was performed according to ALARA (as low as reasonably achievable). 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 It causes significant effacement of naso - oropharyngeal airway. Small hypodense focus, measuring about 5 x 6 mm is noted involving left palatine tonsil - could be developing abscess- MRI correlation suggested. Mildly enlarged adenoids. Enlarged bilateral level II lymph nodes. Included intracranial substances, orbits, and paranasal sinuses are grossly unremarkable. Nasopharynx, oropharynx, oral cavity, hypopharynx and larynx are grossly unremarkable. Parotid, submandibular and thyroid glands are grossly unremarkable. Bilateral neck vessels are patent and show normal course, calibre and opacification. Visualized included lung apices are grossly clear, and no acute osseous abnormality detected. IMPRESSION: Bilateral palatine tonsil appears grossly enlarged and shows heterogeneous enhancement - suggest possibility of tonsillitis. It causes significant effacement of naso - oropharyngeal airway.-stable. Small hypodense focus, measuring about 5 x 6 mm is noted involving left palatine tonsil - could be developing abscess- MRI correlation suggested.-new finding. Mildly enlarged adenoids.-stable. Enlarged bilateral level II lymph nodes. Stable. No other new interval abnormality since prior study. Electronically signed by Jass Marrero 08-24-2025 01:04 AM
--- NOTE | 2025-08-24 02:01 | History & Physical Report ---
Date of Service August 24, 2025 Assessment & Plan (1) Acute tonsillitis: (2) Tonsillar abscess: (3) Group A streptococcal infection: (4) HIV (human immunodeficiency virus infection): Plan The patient is a 25-year-old male with past medical history including HIV positive, who presents to the emergency department with complaints of progressive difficulty swallowing, fevers, chills, and worsening sore throat over the past several days. Workup in the emergency department included respiratory BioFire testing with positive group A strep. CT of the soft tissue neck showed tonsillitis and question of left palate teen tonsil abscess. From emergency department patient received the following: Normal saline 1 L fluid bolus,, 1 g IV, dexamethasone 10 mg IV, Benadryl 25 mg IV, Toradol 15 mg IV, Unasyn 3 g IV, and doxycycline 100 mg IV. Bilateral tonsillitis/ left palatine tonsil abscess/group A strep- NPO Dexamethasone 6 mg IV every 12 hours Unasyn 3 g IV every 6 hours Doxycycline 100 mg IV every 12 hours Acetaminophen 1 g IV every 8 hours as needed for mild pain or fever Morphine sulfate 2 mg IV every 3 hours as needed for moderate to severe pain LR at 125 mL/h CBC with differential, chemistry profile and magnesium level in the a.m. Consult ENT Human immunodeficiency virus- On [facility] as outpatient History of Present Illness Primary Care Provider: Victor M Serrano DO The patient is a 25-year-old male with past medical history including HIV positive, who presents to the emergency department with complaints of progressive difficulty swallowing, fevers, chills, and worsening sore throat over the past several days. Workup in the emergency department included respiratory BioFire testing with positive group A strep. CT of the soft tissue neck showed tonsillitis and question of left palate teen tonsil abscess. From emergency department patient received the following: Normal saline 1 L fluid bolus,, 1 g IV, dexamethasone 10 mg IV, Benadryl 25 mg IV, Toradol 15 mg IV, Unasyn 3 g IV, and doxycycline 100 mg IV. Allergies Allergy/AdvReac Type Severity Reaction Status Date / Time shellfish derived Allergy Severe throat Verified 07/15/25 16:31 swelling wild lebron Allergy Severe Swelling Verified 07/15/25 16:31 of Lip/Tongue/Throat Home Medications Medication Instructions Recorded Confirmed Type cholecalciferol (vitamin D3) 125 250 mcg PO DAILY 02/01/24 07/15/25 History mcg (5,000 unit) tablet (Vitamin D3) valacyclovir 1 gram tablet 1,000 mg PO BID PRN cold sore 11/07/24 07/15/25 Rx outbreak #14 tabs cabotegravir ER 600 mg/3 ml IM 07/04/25 07/15/25 History mL-rilpivirine ER 900 mg/3mL IM suspension,ER (Cabenuva) Past Med/Surg History Problem List (Updated 08/24/25 @ 02:54 by Jorden Bear MD) Group A streptococcal infection Group beta Strep positive Tonsillar abscess Fatigue (Chronic) TSH elevation SELVIN (generalized anxiety disorder) Anxiety Electrolyte abnormality Leukocytosis (Acute) Hypomagnesemia (Acute) Hypokalemia (Acute) Acute tonsillitis (Acute) Fever (Acute) Tonsillitis Sepsis Rectal ulcer Rectal pain Encounter for pre-operative examination Vitamin D deficiency Post traumatic stress disorder (PTSD) provisional Major depressive disorder, single episode, severe without psychotic features Panic disorder Medical History HIV (human immunodeficiency virus infection) HSV (herpes simplex virus) anogenital infection Rectal ulcer Depression PTSD (post-traumatic stress disorder) Vitamin D deficiency History of seizure Suicide attempt by hanging Surgical History History of colonoscopy Hx of tooth extraction Family History Grandfather (Paternal) Lung cancer Grandmother (Paternal) Myocardial infarction Other No family history of adverse response to anesthesia Denies family history of Ovarian cancer Prostate cancer Diabetes Breast cancer Colorectal cancer Stroke Social History Smoking Status: Never smoker Second Hand Exposure: No; Do You Dip or Chew Tobacco: No; Hx Alcohol Use: No Preferred Language: Azeri Communication Ability: Effective Visual Impairment: No Limitations Hearing Ability: Normal 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 Beliefs That Will Affect Care: None marital status: Single Current Living Situation: Family Current Living Situation Comment: with father current occupational status: student How many Children do You have: 0 Feels Safe at Home: Yes Childhood Exposure to Second-Hand Smoke: No caffeine: Yes Dental Care, Regularly: Yes Physical Activity Frequency: Daily Seatbelt Use: always Sunscreen Use: Yes Gender Identity: Male Assistive Devices: None Review of Systems Review of Systems: The patient denies chest pain, palpitations, shortness of breath, dyspnea on exertion, cough, lower extremity swelling, nausea, vomiting, diarrhea , constipation, abdominal pain, pelvic pain, blood in urine or stool, dysuria, urinary frequency or urgency, lightheadedness, dizziness, headache, memory loss, loss of consciousness, rash, abnormal bruising or bleeding, imbalance, focal weakness, numbness or tingling in arms or legs, generalized arthralgias or myalgias, back or neck pain, or night sweats. The review of systems is otherwise negative other than for that already noted above, and at least 10 systems have been reviewed. Physical Exam Physical Exam: The patient is awake, alert and oriented 3, well developed and well nourished, normocephalic and atraumatic, lying in bed and in no acute distress. HEENT--PERRL, EOMI, bilateral tonsillar enlargement and erythema. Neck--supple. No JVD. No bruits. Enlarged cervical lymph nodes bilaterally. Heart--normal S1 and S2. No murmurs, rubs or gallops. Lungs--clear bilaterally, no respiratory distress, no accessory muscle use. Abdomen--normal bowel sounds and soft. Nontender. Nondistended, no hernias or masses, no organomegaly. Extremities--no cyanosis or clubbing. No edema. There are good distal pulses b/l. Dermatologic--normal skin turgor, normal color, no abnormal lymph nodes, no rash. Neurologic--cranial nerves II through XII grossly intact. Rheumatologic--normal range of motion. Psychiatric--normal affect. Results & Data Results & Data Vital Signs (Past 12 Hours) Vital Signs Temp Pulse Resp BP Pulse Ox O2 Del Method 08/24/25 01:00 36.5 C 80 18 119/66 95 08/24/25 00:30 92 H 22 115/73 95 08/24/25 00:00 94 H 20 123/60 97 Room Air 08/23/25 23:30 87 18 126/70 100 08/23/25 23:20 99 Room Air 11/29/25 23:17 100 H 08/23/25 23:00 37.9 C H 121 H 20 117/69 95 Room Air Laboratory Results Laboratory Results WBC 15.70 K/ul (4.8-10.8) H 08/23/25 23:17 RBC 5.41 M/uL (4.70-6.10) 08/23/25 23:17 Hgb 15.1 g/dL (14.0-18.0) 08/23/25 23:17 Hct 43.7 % (42.0-52.0) 08/23/25 23:17 MCV 80.8 fL (80.0-100.0) 08/23/25 23:17 MCH 27.9 pg (25.0-34.0) 08/23/25 23:17 MCHC 34.6 g/dL (32.0-36.0) 08/23/25 23:17 RDW Std Deviation 38.0 fL (36.4-46.3) 08/23/25 23:17 RDW Coeff of Paul 13.2 % (11.5-14.5) 08/23/25 23:17 Plt Count 234 K/uL (130-400) 08/23/25 23:17 MPV 9.3 fL (9.4-12.4) L 08/23/25 23:17 Immature Gran % (Auto) 0.4 % 08/23/25 23:17 Neut % (Auto) 74.9 % 08/23/25 23:17 Lymph % (Auto) 13.9 % 08/23/25 23:17 Hardee % (Auto) 10.3 % 08/23/25 23:17 Eos % (Auto) 0.1 % 08/23/25 23:17 Baso % (Auto) 0.4 % 08/23/25 23:17 Neut # (Auto) 11.75 K/uL (1.40-6.50) H 08/23/25 23:17 Lymph # (Auto) 2.18 K/uL (1.20-3.40) 08/23/25 23:17 Hardee # (Auto) 1.62 K/uL (0.11-0.59) H 08/23/25 23:17 Eos # (Auto) 0.01 K/uL (0.00-0.50) 08/23/25 23:17 Baso # (Auto) 0.07 K/uL (0.00-0.20) 08/23/25 23:17 Immature Gran # (Auto) 0.07 K/uL (0.01-0.20) 08/23/25 23:17 Sodium 131 mmol/L (136-145) L 08/23/25 23:17 Potassium 3.6 mmol/L (3.5-5.1) 08/23/25 23:17 Chloride 101 mmol/L (98-107) 08/23/25 23:17 Carbon Dioxide 22 mmol/L (21-32) 08/23/25 23:17 Anion Gap 8 (3-11) 08/23/25 23:17 BUN 10 mg/dl (6-23) 08/23/25 23:17 Creatinine 0.94 mg/dl (0.6-1.4) 08/23/25 23:17 Est Cr Clr Drug Dosing 105.4 ml/min 08/23/25 23:17 eGFR 116.09 08/23/25 23:17 BUN/Creatinine Ratio 10.6 (10-20) 08/23/25 23:17 Glucose 136 mg/dl (70-99(Fasting)) H 08/23/25 23:17 Calcium 9.1 mg/dl (8.6-10.3) 08/23/25 23:17 Total Bilirubin 0.9 mg/dl (0.2-1.0) 08/23/25 23:17 AST 25 U/L (13-39) 08/23/25 23:17 ALT 21 U/L (7-52) 08/23/25 23:17 Alkaline Phosphatase 51 U/L (34-104) 08/23/25 23:17 Total Protein 7.8 gm/dl (6.0-8.3) 08/23/25 23:17 Albumin 3.9 gm/dl (3.4-5.0) 08/23/25 23:17 Globulin 3.9 gm/dl (2.5-4.0) 08/23/25 23:17 Albumin/Globulin Ratio 1.0 (0.9-2) 08/23/25 23:17 Adenovirus (PCR) Not Detected (NotDetected) 08/23/25 23:15 B. pertussis DNA (PCR) Not Detected (NotDetected) 08/23/25 23:15 B.parapertussis DNA PCR Not Detected (NotDetected) 08/23/25 23:15 C. pneumoniae DNA (PCR) Not Detected (NotDetected) 08/23/25 23:15 Coronavirus OC43 (PCR) Not Detected (NotDetected) 08/23/25 23:15 Coronavirus HKU1 (PCR) Not Detected (NotDetected) 08/23/25 23:15 Coronavirus 229E (PCR) Not Detected (NotDetected) 08/23/25 23:15 SARS-CoV-2 (PCR) Not Detected (NotDetected) 08/23/25 23:15 Coronavirus NL63 (PCR) Not Detected (NotDetected) 08/23/25 23:15 Monoscreen Negative (Negative) 08/23/25 23:17 Human Metapneumovir PCR Not Detected (NotDetected) 08/23/25 23:15 Influenza Type A (PCR) Not Detected (NotDetected) 08/23/25 23:15 Influenza Type B (PCR) Not Detected (NotDetected) 08/23/25 23:15 M. 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 Contiguous axial images were obtained. Reformatted coronal and sagittal images were also reviewed. If IV contrast material had not been administered, the likelihood of detecting abnormalities relevant to the patient's condition would have been substantially decreased. CT scan was performed according to ALARA (as low as reasonably achievable). COMPARISON: 03/25/2023 17:22:47 MEDIA CLERK FINDINGS: Bilateral palatine tonsil appears grossly enlarged and shows heterogeneous enhancement - suggest possibility of tonsillitis. It causes significant effacement of naso - oropharyngeal airway. Small hypodense focus, measuring about 5 x 6 mm is noted involving left palatine tonsil - could be developing abscess- MRI correlation suggested. Mildly enlarged adenoids. Enlarged bilateral level II lymph nodes. Included intracranial substances, orbits, and paranasal sinuses are grossly unremarkable. Nasopharynx, oropharynx, oral cavity, hypopharynx and larynx are grossly unremarkable. Parotid, submandibular and thyroid glands are grossly unremarkable. Bilateral neck vessels are patent and show normal course, calibre and opacification. Visualized included lung apices are grossly clear, and no acute osseous abnormality detected. IMPRESSION: Bilateral palatine tonsil appears grossly enlarged and shows heterogeneous enhancement - suggest possibility of tonsillitis. It causes significant effacement of naso - oropharyngeal airway.-stable. Small hypodense focus, measuring about 5 x 6 mm is noted involving left palatine tonsil - could be developing abscess- MRI correlation suggested.-new finding. Mildly enlarged adenoids.-stable. Enlarged bilateral level II lymph nodes. Stable. No other new interval abnormality since prior study. Electronically signed by Jass Marrero 08-24-2025 01:04 AM Code Status & VTE Plan Code Status Full code VTE Prophylaxis Plan VTE Prophylaxis will be ordered: Yes PG Care Time/CCT Total # of Minutes Spent Total Time Spent with Patient: Total time spent is greater than 50% in coordination of care (as documented) at patient's floor/unit and/or counseling patient: Coding Level of Care Code 95759 INT INP/OBS CARE 3/75MIN Diagnoses Acute tonsillitis J03.90 Pharyngitis/tonsillitis etiology: unspecified etiology Tonsillar abscess J36 Group A streptococcal infection B95.0 HIV (human immunodeficiency virus infection) Z21 (1) Acute tonsillitis Pharyngitis/tonsillitis etiology: unspecified etiology Qualified Code(s): J03.90 - Acute tonsillitis, unspecified
[2025-08-24] MEDS: DOXYCYCLINE HYCLATE 100 MG in DEXTROSE 5% MINI-B 100 ML IV STA (02:57)
[2025-08-24] MEDS: LACTATED RINGER'S 1,000 ML IV SCH (04:18)
[2025-08-24] MEDS ORDERED: MoRPHine SULFATE 4 MG/ML 1 ML CARP\\VIAL IV PRN (04:54)
[2025-08-24] MEDS ORDERED: ACETAMINOPHEN 1,000 MG/100 ML VIAL IV PRN (04:54)
[2025-08-24] MEDS: AMPICILLIN/SULBACTAM SOD 3,000 MG/100 ML BAG IV SCH (06:30)
[2025-08-24] MEDS: dexAMETHasone 6 MG in SYRINGE 0 ML IV SCH (07:59)
[2025-08-24] MEDS: DOXYCYCLINE HYCLATE 100 MG in DEXTROSE 5% MINI-B 100 ML IV SCH (09:01)
--- NOTE | 2025-08-24 15:15 | Hospitalist Progress Note ---
Date of Service August 24, 2025 Assessment & Plan (1) Group A streptococcal infection: Plan: * Positive on BioFire. Throat culture still pending * Continue ampicillin sodium/sulbactam (Unasyn) and doxycycline (day 1) * Continue dexamethasone 6 mg every 12 hours * Tylenol as needed for pain * Will keep patient n.p.o. with exception of sips and ice chips pending ENT comment * No trismus or other acute findings. (2) Tonsillar abscess: Plan: * Seems to be improving. Patient swallowing better. No trismus * Blood cultures with no growth to date x 2 * ENT consulted. Awaiting comment. * Continue n.p.o. with exception of ice chips and sips * No fever, chills, rigors. Continue treatment above for group A strep (3) Tonsillitis: Plan: * Continue antibiotics as listed above (4) HIV (human immunodeficiency virus infection): Plan: * No open lesions or sores * Absolute CD4 count 716. Percentage CD4 cells 29% * Cabotegravir (Cabenuva) IM as an outpatient Plan Case discussed with Dr. Marcano. Anticipate discharge home once stable Admission and Anticipated Discharge Date Admission Date: August 24, 2025 Supervising Physician Co-Signing Physician Notes The patient was not seen by me. The chart was reviewed. Case discussed with POLLO Lucas. Agree with assessment and plan Subjective Attending: Dr. Marcano Patient seen and examined at bedside. He states that he is feeling slightly better. He has no difficulty with swallowing at this time and denies trismus. He reports that drooling has improved and he is able to swallow his saliva. He still has some pain but states that it is better. He denies any fever, shortness of breath, rigors. He is tolerating medications well. No other acute complaints. Review of Systems 2 Review of Systems: A total of 10 systems was reviewed and is negative other than as listed in the HPI Physical Exam 2 Physical Exam: GENERAL : No acute distress EYES: No icterus, gaze conjugate NOSE: No evidence of epistaxis MOUTH: No lesions or candidiasis. Patient does have swelling at the posterior soft palate and at the bilateral tonsil region. No swelling of the tongue. Tongue is midline. Patient is able to swallow saliva. He has been n.p.o. since admission. Unable to visualize any pus or evidence of bleeding. NECK: Supple LUNGS: CTA B/L, no wheezes, rales or rhonchi HEART: Regular, rate controlled ABDOMEN: Soft, NT, ND, BS Present EXTREMITIES: No LE edema, pedal pulses intact NEURO: A&OX3 Results & Data Results & Data Vital Signs (Past 12 Hours) Vital Signs Temp Pulse Pulse Resp BP BP Pulse Ox 08/24/25 14:12 84 08/24/25 11:09 35.1 C L 08/24/25 11:05 70 20 100/61 98 08/24/25 08:56 36.3 C L 08/24/25 07:50 63 08/24/25 07:07 72 20 111/73 97 08/24/25 05:00 18 103/63 97 08/24/25 04:18 36.5 C 08/24/25 04:00 67 16 111/57 L 97 08/24/25 03:30 70 16 108/64 95 08/24/25 03:00 65 18 106/61 97 O2 Del Method 08/24/25 14:12 08/24/25 11:09 08/24/25 11:05 Room Air 08/24/25 08:56 08/24/25 07:50 08/24/25 07:07 Room Air 08/24/25 05:00 Room Air 08/24/25 04:18 08/24/25 04:00 Room Air 08/24/25 03:30 Room Air 08/24/25 03:00 Laboratory Results 08/23/25 23:17 08/23/25 23:17 Diagnostic Findings Soft Tissue Neck CT 08/23/25 23:16 EXAM: CT soft tissue neck w con 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 Contiguous axial images were obtained. Reformatted coronal and sagittal images were also reviewed. If IV contrast material had not been administered, the likelihood of detecting abnormalities relevant to the patient's condition would have been substantially decreased. CT scan was performed according to ALARA (as low as reasonably achievable). 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 It causes significant effacement of naso - oropharyngeal airway. Small hypodense focus, measuring about 5 x 6 mm is noted involving left palatine tonsil - could be developing abscess- MRI correlation suggested. Mildly enlarged adenoids. Enlarged bilateral level II lymph nodes. Included intracranial substances, orbits, and paranasal sinuses are grossly unremarkable. Nasopharynx, oropharynx, oral cavity, hypopharynx and larynx are grossly unremarkable. Parotid, submandibular and thyroid glands are grossly unremarkable. Bilateral neck vessels are patent and show normal course, calibre and opacification. Visualized included lung apices are grossly clear, and no acute osseous abnormality detected. IMPRESSION: Bilateral palatine tonsil appears grossly enlarged and shows heterogeneous enhancement - suggest possibility of tonsillitis. It causes significant effacement of naso - oropharyngeal airway.-stable. Small hypodense focus, measuring about 5 x 6 mm is noted involving left palatine tonsil - could be developing abscess- MRI correlation suggested.-new finding. Mildly enlarged adenoids.-stable. Enlarged bilateral level II lymph nodes. Stable. No other new interval abnormality since prior study. Electronically signed by Jass Marrero 08-24-2025 01:04 AM PG Care Time/CCT Total # of Minutes Spent Total Time Spent with Patient: Total time spent is greater than 50% in coordination of care (as documented) at patient's floor/unit and/or counseling patient: Coding Level of Care Code None Diagnoses Group A streptococcal infection B95.0 Tonsillar abscess J36 Tonsillitis J03.90 HIV infection, unspecified symptom status Z21 HIV symptom status: unspecified Comment Do not bill for this visit. Patient was admitted earlier today. Please refer to H&P (4) HIV (human immunodeficiency virus infection) HIV symptom status: unspecified Qualified Code(s): Z21 - Asymptomatic human immunodeficiency virus [HIV] infection status
[2025-08-25 06:33] LABS: Hematocrit (blood only) 38.7 % (42.0-52.0); Hemoglobin 13.2 g/dL (14.0-18.0); Immature Granulocytes # (auto) 0.09 K/uL (0.01-0.20); Immature Granulocytes % (auto) 0.5 %; Mean Corpuscular Hemoglobin 27.9 pg (25.0-34.0); Mean Corpuscular Volume 81.8 fL (80.0-100.0); Platelet Count 231 K/uL (130-400); RDW Standard Deviation 38.9 fL (36.4-46.3); Red Blood Count 4.73 M/uL (4.70-6.10); White Blood Count 17.83 K/ul (4.8-10.8)
[2025-08-25 07:03] LABS: Alanine Aminotransferase 16.0 U/L (7-52); Albumin Globulin Ratio 1.2 (0.9-2); Albumin Level 3.6 gm/dl (3.4-5.0); Alkaline Phosphatase 48.0 U/L (34-104); Anion Gap 8.0 (3-11); Bilirubin,Total 0.4 mg/dl (0.2-1.0); Blood Urea Nitrogen 12.0 mg/dl (6-23); Calcium 8.6 mg/dl (8.6-10.3); Carbon Dioxide 25.0 mmol/L (21-32); Chloride 106.0 mmol/L (98-107); Creatinine Clr Calc Pharmacy 150.9 ml/min; Globulin 3.1 gm/dl (2.5-4.0); Glucose 140.0 mg/dl (70-99(Fasting)); Magnesium 1.7 mg/dl (1.7-2.4); Potassium 3.9 mmol/L (3.5-5.1); Sodium 139.0 mmol/L (136-145); Total Protein 6.7 gm/dl (6.0-8.3)
[2025-08-25 07:23] VITALS: RESP 18; O2SAT 97
[2025-08-25 10:49] VITALS: BP 119/67; PULSE 70; TEMP 97.9
--- NOTE | 2025-08-25 13:00 | ENT Consultation ---
Date of Consultation August 25, 2025 Assessment & Plan (1) HIV (human immunodeficiency virus infection): (2) Group A streptococcal infection: (3) Acute tonsillitis: Plan 25yM with PMH HIV with GAS tonsillitis. CT neck with very small hypodensity in L peritonsillar space, not amenable to drainage. Improved on IV abx. No clinical signs of VASCULAR SONOGRAPHER. -OK for d/c home on augmentin x10 days total -F/u in 2-3 weeks - if persistent tonsillar hypertrophy would investigate for MOHAN History of Present Illness Attending Physician: Orquidea Leal MD History of Present Illness 25yM admitted with strep tonsillitis. History pertinent for HIV on antiretrovirals. CT neck in ED showed per my read bilateral tonsillitis with 4mm hypodensity L peritonsillar space and bilateral cervical adenopathy. Cx positive GAS. Feels improved after IV abx. No trismus, dysphagia, dyspnea, voice change. Allergies Allergy/AdvReac Type Severity Reaction Status Date / Time shellfish derived Allergy Severe throat Verified 07/15/25 16:31 swelling wild lebron Allergy Severe Swelling Verified 07/15/25 16:31 of Lip/Tongue/Throat Home Medications Medication Instructions Recorded Confirmed Type cholecalciferol (vitamin D3) 125 250 mcg PO DAILY 02/01/24 07/15/25 History mcg (5,000 unit) tablet (Vitamin D3) valacyclovir 1 gram tablet 1,000 mg PO BID PRN cold sore 11/07/24 07/15/25 Rx outbreak #14 tabs cabotegravir ER 600 mg/3 ml IM 07/04/25 07/15/25 History mL-rilpivirine ER 900 mg/3mL IM suspension,ER (Cabenuva) Patient History Medical History HSV (herpes simplex virus) anogenital infection Rectal ulcer scant bleeding at times with pain at times with BM's Depression PTSD (post-traumatic stress disorder) Vitamin D deficiency History of seizure "[place] in [place] a child-had one seizure, no issues since then" Suicide attempt by hanging hospitalized at [facility] in 01/04/2023>denies any suicidal ideation at this time Surgical History History of colonoscopy Hx of tooth extraction as child Family History Grandfather (Paternal) Lung cancer Grandmother (Paternal) Myocardial infarction Other No family history of adverse response to anesthesia Denies family history of Ovarian cancer Prostate cancer Diabetes Breast cancer Colorectal cancer Stroke Social History Smoking Status: Never smoker Second Hand Exposure: No; Do You Dip or Chew Tobacco: No; Hx Alcohol Use: Yes Alcohol type: wine Hx Substance Use: No Preferred Language: Syrian Communication Ability: Effective Visual Impairment: No Limitations Hearing Ability: Normal Access Rep Required: No Beliefs That Will Affect Care: None marital status: Single Current Living Situation: Other Current Living Situation Comment: friends current occupational status: student How many Children do You have: 0 Other Information That Helps Us Care for You: No Feels Safe at Home: Yes Safety Concerns: Feels Safe At This Time Childhood Exposure to Second-Hand Smoke: No caffeine: Yes Dental Care, Regularly: Yes Physical Activity Frequency: Daily Seatbelt Use: always Sunscreen Use: Yes Gender Identity: Male Assistive Devices: None Review of Systems Review of Systems: A 10-point ROS is negative except as noted above Physical Exam Physical Exam: Oral cavity clear aside from small aphthous ulcer ban pellucida OP with 3+ tonsils without erythema, exudate No soft palate fullness or uvular deviation Normal voice Managing secretions Bilateral 1.5-2cm cervical adenopathy Results & Data Vital Signs (Past 12 Hours) Vital Signs Temp Pulse Pulse Resp BP Pulse Ox O2 Del Method 08/25/25 10:48 36.6 C 70 18 119/67 97 Room Air 08/25/25 08:00 73 08/25/25 07:21 36.5 C 68 18 105/55 L 97 Room Air 08/25/25 03:52 36.7 C 78 16 98/57 L 96 Room Air PG Care Time/CCT Total # of Minutes Spent Total Time Spent with Patient: Total time spent is greater than 50% in coordination of care (as documented) at patient's floor/unit and/or counseling patient: Coding Level of Care Code 72974 IN/OBS CONSULT LVL 4,60M Diagnoses HIV infection, unspecified symptom status Z21 HIV symptom status: unspecified Group A streptococcal infection B95.0 Acute tonsillitis J03.90 Pharyngitis/tonsillitis etiology: unspecified etiology (1) HIV (human immunodeficiency virus infection) HIV symptom status: unspecified Qualified Code(s): Z21 - Asymptomatic human immunodeficiency virus [HIV] infection status (3) Acute tonsillitis Pharyngitis/tonsillitis etiology: unspecified etiology Qualified Code(s): J03.90 - Acute tonsillitis, unspecified
--- NOTE | 2025-08-25 13:27 | Discharge Summary ---
Discharge Summary Date of Service August 25, 2025 Principal Dx & Hospital Course #1 = Principal Diagnosis (1) Group A streptococcal infection: (2) Tonsillar abscess: (3) Tonsillitis: (4) HIV (human immunodeficiency virus infection): Plan Bilateral tonsillitis/ left palatine tonsil abscess/group A strep- The patient is a 25-year-old male with past medical history including HIV positive, who presents to the emergency department with complaints of progressive difficulty swallowing, fevers, chills, and worsening sore throat over the past several days. Workup in the emergency department included respiratory BioFire testing with positive group A strep. CT of the soft tissue neck showed tonsillitis and question of left palatine tonsil abscess. Admitted for IV antibiotics (Unasyn) and steroids. Seen by ENT - much improved on on 08/25, no drainage indicated. Recommend d/c home with 10 day course of Augmentin and outpatient follow up. Patient tolerating full liquids without issue advance as tolerated. Human immunodeficiency virus- On [facility] as outpatient Dispo: discharge to home today Case discussed with Dr. Fajardo Admission HPI Per Admitting Provider The patient is a 25-year-old male with past medical history including HIV positive, who presents to the emergency department with complaints of progressive difficulty swallowing, fevers, chills, and worsening sore throat over the past several days. Workup in the emergency department included respiratory BioFire testing with positive group A strep. CT of the soft tissue neck showed tonsillitis and question of left palate teen tonsil abscess. From emergency department patient received the following: Normal saline 1 L fluid bolus,, 1 g IV, dexamethasone 10 mg IV, Benadryl 25 mg IV, Toradol 15 mg IV, Unasyn 3 g IV, and doxycycline 100 mg IV. Discharge Exam General: NAD, VS as above HEENT: bilateral tonsils 2+, no stridor or trismus Resp: normal respiratory effort, lungs clear to auscultation CV: RRR, no murmur, Extremities: Moves all extremities, no edema Neuro: A&O x3, Discharge Plan Discharge Items Patient Disposition: Home - Self-Care Reason For Visit: TONSILLITIS, PERITONSILLAR ABSCESS Discharge Diagnosis: Tonsilitis Activity: Resume your previous activity Weightbearing: Full weightbearing Non-emergency contact: Primary Care Provider Call non-emergency contact if: you have any medication questions, your symptoms worsen and your temperature is above 101.5 Follow-up/Referrals: Bennie Fajardo MD [Physician] - 10/01/25 4:00 pm (Follow up in 2-3 weeks 10/01/25 at 4:00) Victor M Serrano DO [Primary Care Provider] - 08/28/25 2:00 pm (follow up within one week 08/28/25 at 2:00 with Huber Montano) Diet: Regular Addtl Attending Provider Instructions: Mr. Ward, Javier were hospitalized after having strep throat and tonsillitis causing difficulty swallowing. Thankfully this has greatly improved after IV antibiotics and steroids. You were seen by ENT who recommended home with a course of oral antibiotics and to follow up in the office. You can advance your diet as tolerated at home, it is important that you do not get dehydrated. Focus on liquids until your pain improves. Would recommend avoiding harder foods like chips and pretzels until fully healed. Do not share drinks or food with anyone as you could still be contagious. No changes to your home medications. Activity: You can do normal everyday activities as your body allows. Take rest breaks if you feel tired. Do not overexert. Stop activity if you have pain, shortness of breath or feel dizzy. Follow-up appointments: Make an appointment with your primary care physician within one week of discharge. A copy of this summary will be sent to them. Every time you see your primary care physician, or any other doctor, bring your medication list, and a list of questions. CONTACT YOUR PRIMARY CARE PROVIDER if you experience any of the following: Shortness of breath or difficulty breathing Fevers or chills Feeling tired with normal activity or experiencing dizziness or fainting Difficulty following your treatment plan, or difficulty taking medications CALL 911 OR GO TO THE EMERGENCY DEPARTMENT if you experience any of the following: Severe abdominal pain or nausea/vomiting Severe chest pain, or chest pain that radiates (moves) to your jaw or arm Sudden, severe shortness of breath or difficulty breathing Inability to swallow or handle secretions Thank you for allowing us to participate in your care. Pending Studies at Discharge: No Stand-Alone Forms: My [employer], Smoking Cessation Medications and DC Order Prescriptions: New amoxicillin-pot clavulanate 875-125 mg tablet 1 tab PO BID Qty: 20 0RF Continued valacyclovir 1 gram tablet 1,000 mg PO BID PRN (Reason: cold sore outbreak) Qty: 14 2RF Cabenuva 600 mg/3 mL- 900 mg/3 mL suspension,extended release IM cholecalciferol (vitamin D3) [Vitamin D3] 125 mcg (5,000 unit) Tablet 250 mcg PO DAILY Discharge Orders: Discharge Order (Routine); Ordered 08/25/25 Ordered By: Sandrine Morales/Other Patient Handouts: Tonsillitis in Adults Admission Data Admit Date/Time: 08/24/25 01:59 Attending Provider: Orquidea Leal Admit Provider: Jorden Bear Primary Care Provider: Victor M Serrano Other Providers: Jorden Bear; Bennie Fajardo Other Interventions: Discharge Summary Assessment (RN) Last Done: 08/25/25 13:31 Hospital Stay Data Consultations 08/24/25 01:18 Consult Otolaryngology (Head and Neck) Routine 08/24/25 01:30 ED Decision to Admit Stat Diagnostic Imagining Performed Soft Tissue Neck CT 08/23/25 23:16 EXAM: CT soft tissue neck w con 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 Contiguous axial images were obtained. Reformatted coronal and sagittal images were also reviewed. If IV contrast material had not been administered, the likelihood of detecting abnormalities relevant to the patient's condition would have been substantially decreased. CT scan was performed according to ALARA (as low as reasonably achievable). 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 It causes significant effacement of naso - oropharyngeal airway. Small hypodense focus, measuring about 5 x 6 mm is noted involving left palatine tonsil - could be developing abscess- MRI correlation suggested. Mildly enlarged adenoids. Enlarged bilateral level II lymph nodes. Included intracranial substances, orbits, and paranasal sinuses are grossly unremarkable. Nasopharynx, oropharynx, oral cavity, hypopharynx and larynx are grossly unremarkable. Parotid, submandibular and thyroid glands are grossly unremarkable. Bilateral neck vessels are patent and show normal course, calibre and opacification. Visualized included lung apices are grossly clear, and no acute osseous abnormality detected. IMPRESSION: Bilateral palatine tonsil appears grossly enlarged and shows heterogeneous enhancement - suggest possibility of tonsillitis. It causes significant effacement of naso - oropharyngeal airway.-stable. Small hypodense focus, measuring about 5 x 6 mm is noted involving left palatine tonsil - could be developing abscess- MRI correlation suggested.-new finding. Mildly enlarged adenoids.-stable. Enlarged bilateral level II lymph nodes. Stable. No other new interval abnormality since prior study. Electronically signed by Jass Marrero 08-24-2025 01:04 AM Pending Results Patient Have Any Pending Studies at Discharge: No Discharge Instructions Given to Patient (Per Discharging Provider) Mr. Ward, Javier were hospitalized after having strep throat and tonsillitis causing difficulty swallowing. Thankfully this has greatly improved after IV antibiotics and steroids. You were seen by ENT who recommended home with a course of oral antibiotics and to follow up in the office. You can advance your diet as tolerated at home, it is important that you do not get dehydrated. Focus on liquids until your pain improves. Would recommend avoiding harder foods like chips and pretzels until fully healed. Do not share drinks or food with anyone as you could still be contagious. No changes to your home medications. Activity: You can do normal everyday activities as your body allows. Take rest breaks if you feel tired. Do not overexert. Stop activity if you have pain, shortness of breath or feel dizzy. Follow-up appointments: Make an appointment with your primary care physician within one week of discharge. A copy of this summary will be sent to them. Every time you see your primary care physician, or any other doctor, bring your medication list, and a list of questions. CONTACT YOUR PRIMARY CARE PROVIDER if you experience any of the following: Shortness of breath or difficulty breathing Fevers or chills Feeling tired with normal activity or experiencing dizziness or fainting Difficulty following your treatment plan, or difficulty taking medications CALL 911 OR GO TO THE EMERGENCY DEPARTMENT if you experience any of the following: Severe abdominal pain or nausea/vomiting Severe chest pain, or chest pain that radiates (moves) to your jaw or arm Sudden, severe shortness of breath or difficulty breathing Inability to swallow or handle secretions Thank you for allowing us to participate in your care. Supervising Physician Co-Signing Physician Notes PA Supervision Note: I did not personally see or examine the patient today, but I verified all wynn points of POLLO Charles's assessment and plan with the following exceptions/additions: None Total Time Total Time Spent Total Time Spent (In Minutes): Time spent day of discharge 36 minutes including direct patient care, medication reconciliation, documentation, review of labs and images, and coordination of care. Coding Level of Care Code 23943 INP/OBS DISCH >30 MIN Diagnoses Group A streptococcal infection B95.0 Tonsillar abscess J36 Tonsillitis J03.90 HIV infection, unspecified symptom status Z21 HIV symptom status: unspecified
== END 2025-08-25 14:39 | disposition home or self-care (01) | DRG 153 ==
LOC: ED 22:58 → 2S 08-24 01:59 → SUATTDRO 08-24 01:59 → 2S 08-24 04:28

== ENCOUNTER 2025-09-08 17:06 | Observation (INO) ==
--- NOTE | 2025-09-08 17:22 | Emergency Department Note ---
Impression & Plan Peritonsillar cellulitis, Tonsillitis, Leukocytosis, HIV (human immunodeficiency virus infection), Pharyngitis ED Provider Note NAME: CIPRIANO VU AGE: 25 SEX: M : 2000 ARRIVES VIA: Walk-In INFORMANT: Patient ED PROVIDER(S): Ricardo Singh MD CHIEF COMPLAINT: Throat swelling, recent admission for pharyngitis/tonsillitis PLAN: Disposition: Admit MEDICAL DECISION MAKING: The patient is a 25-year-old gentleman with past medical history of HIV on Cabenuva who presents to the emergency department via walk-in for evaluation of worsening throat swelling and pain with fevers over the past several days in the setting of being admitted to this facility from 08/23-08/25 for similar symptoms which were managed medically with IV Unasyn and transition to Augmentin. Patient denies nausea or vomiting. Patient ports he is able to eat and drink but it is painful. On arrival to the Emergency Department the patient is in no acute distress, febrile to 30.2 with heart in 100s and blood pressure 97/49 and vital signs otherwise stable. He appears clinically dry. He exhibits symmetric injection and edema of the posterior pharynx with exudates. No tongue elevation or trismus at this time. Patient is swallowing his own secretions. No stridor. No pain with tracheal manipulation. EKG without overt acute ischemia. CXR negative for acute cardiopulmonary process per my personal preliminary review/interpretation. WBC 17.2 K with neutrophilia but no left shift. H/H similar to prior. Plates within normal limits. Chemistry without metabolic acidosis. Magnesium 1.5 and potassium 3.2 and electrolytes otherwise unremarkable. LFTs unremarkable. High-sensitivity troponin 6.1, within normal limits. Procalcitonin is elevated at 1.23 in the setting of pharyngitis/tonsillitis/peritonsillar cellulitis. Group A strep PCR previously positive now is negative. Throat culture also sent and pending. Given the patient's recent admission in the setting of history of HIV patient agrees with plan for admission for further management. I also did review the patient's case with ENT on-call, Dr. Huitron. Appreciate consultation recommendations. Agrees per my description that CT could be deferred at this time as it would unlikely change the patient's management. Initial treatment will be medical to assess for response. Recommends clindamycin for additional antimicrobial coverage. Steroid treatment will also help symptomatically if further treatment is okay in the setting of being on Cabenuva. Case was discussed with Dr. Roe, [facility] hospitalist, who will evaluate the patient for admission. Further management per admitting team. Triage Nursing notes reviewed and agree them. Prior/external medical records reviewed Vital Signs: reviewed Differential diagnosis: Viral syndrome, tonsillitis, streptococcal pharyngitis, mononucleosis, peritonsillar abscess, retropharyngeal abscess, otitis, pneumonia, influenza, as well as other pathologies. ER treatment provided: See below. Diagnostics interpreted by me: ECG: Normal sinus rhythm, 98 bpm, no ectopy, no overt ST elevation or depression, QTc 423, QRS 82. Cardiac Monitoring: An order for continuous cardiac monitoring was placed and demonstrated normal sinus rhythm, 98 bpm, no ectopy. Laboratory studies: See below Imaging studies: See below Consultation(s): Dr. Huitron, ENT HPI: Per MDM. ROS: See above HPI for pertinent positives & negatives. A total of 10 systems reviewed and were otherwise negative. VITALS:See Below PHYSICAL EXAMINATION: GENERAL: Awake, alert, in no distress HENT: Normocephalic, atraumatic. Exhibits symmetric injection and edema of the posterior pharynx with exudates. No tongue elevation or trismus at this time. Patient is swallowing his own secretions. No stridor. EYES: Normal conjunctiva. Sclera non-icteric. NECK: Supple. No nuchal rigidity. FROM. No JVD. No pain with tracheal manipulation. RESPIRATORY: Clear to auscultation. CARDIAC: Tachycardic rate, normal rhythm. Extremities warm and well perfused. Pulses equal. ABDOMEN: Soft, non-distended. No tenderness to palpation. No rebound or guarding. No masses. MUSCULOSKELETAL: Chest examination reveals no tenderness. The back is symmetrical on inspection without obvious abnormality. There is no CVA tenderness to palpation. No joint edema. LOWER EXTREMITIES: Calves are equal size bilaterally and non-tender. No edema. No discoloration. NEURO: Normal sensorium. No sensory or motor deficits noted. SKIN: No rash or jaundice noted. Ricardo Singh MD Past Med/Surg History Problem List (Updated 09/10/25 @ 01:13 by Ricardo Singh MD) Pharyngitis (Acute) HIV (human immunodeficiency virus infection) (Acute) Leukocytosis (Acute) Tonsillitis (Acute) Peritonsillar cellulitis (Acute) HIV (human immunodeficiency virus infection) Group C streptococcal infection Group A streptococcal infection (Acute) Group beta Strep positive Tonsillar abscess (Acute) Fatigue (Chronic) TSH elevation SELVIN (generalized anxiety disorder) Anxiety Electrolyte abnormality Leukocytosis (Acute) Hypomagnesemia (Acute) Hypokalemia (Acute) Acute tonsillitis (Acute) Fever (Acute) Tonsillitis Sepsis Rectal ulcer Rectal pain Encounter for pre-operative examination Vitamin D deficiency Post traumatic stress disorder (PTSD) provisional Major depressive disorder, single episode, severe without psychotic features Panic disorder Medical History HSV (herpes simplex virus) anogenital infection Rectal ulcer scant bleeding at times with pain at times with BM's Depression PTSD (post-traumatic stress disorder) Vitamin D deficiency History of seizure "struck in the [place] during [place] as a child-had one seizure, no issues since then" Suicide attempt by hanging hospitalized at [facility] in 01/04/2023>denies any suicidal ideation at this time Surgical History History of colonoscopy Hx of tooth extraction as child Family History Grandfather (Paternal) Lung cancer Grandmother (Paternal) Myocardial infarction Other No family history of adverse response to anesthesia Denies family history of Ovarian cancer Prostate cancer Diabetes Breast cancer Colorectal cancer Stroke Social History Smoking Status: Never smoker Second Hand Exposure: No; Do You Dip or Chew Tobacco: No; Hx Alcohol Use: Yes Alcohol type: wine Hx Substance Use: No Preferred Language: Stateless Communication Ability: Effective Visual Impairment: No Limitations Hearing Ability: Normal Ultrasound Spec Required: No Beliefs That Will Affect Care: None marital status: Single Current Living Situation: Other Current Living Situation Comment: lives with friends current occupational status: student How many Children do You have: 0 Feels Safe at Home: Yes Childhood Exposure to Second-Hand Smoke: No caffeine: Yes Dental Care, Regularly: Yes Physical Activity Frequency: Daily Seatbelt Use: always Sunscreen Use: Yes Gender Identity: Male Assistive Devices: None Allergies Allergies Allergy/AdvReac Type Severity Reaction Status Date / Time shellfish derived Allergy Severe throat Verified 08/28/25 13:56 swelling wild [place] Allergy Severe Swelling Verified 08/28/25 13:56 of Lip/Tongue/Throat Home Meds Home Medications Medication Instructions Recorded Confirmed cholecalciferol (vitamin D3) 125 250 mcg PO DAILY 02/01/24 09/08/25 mcg (5,000 unit) tablet (Vitamin D3) cabotegravir ER 600 mg/3 3 ml IM Q28D 07/04/25 09/08/25 mL-rilpivirine ER 900 mg/3mL IM suspension,ER (Cabenuva) Previous Rx's Medication Instructions Recorded valacyclovir 1 gram tablet 1,000 mg PO BID PRN cold sore 11/07/24 outbreak #14 tabs clindamycin HCl 300 mg capsule 300 mg PO QID 10 days #40 caps 09/09/25 Results & Data (ED) Vital Signs Vital Signs - 24 hr 09/08/25 17:07 09/08/25 17:07 09/08/25 17:18 Temperature 37.4 C Temperature Source Oral Pulse Rate 105 H 94 H Respiratory Rate 16 18 Blood Pressure 97/49 L Blood Pressure Mean 65 Pulse Oximetry 96 Oxygen Delivery Method Sepsis Recent Fever Within 48 Hours No Sepsis New/Unexplained Change in Mental Status N/A Sepsis Action Taken by Nursing Physician Notified 09/08/25 17:23 09/08/25 18:13 Temperature 38.2 C H Temperature Source Oral Pulse Rate Respiratory Rate Blood Pressure Blood Pressure Mean Pulse Oximetry 96 Oxygen Delivery Method Room Air Sepsis Recent Fever Within 48 Hours Sepsis New/Unexplained Change in Mental Status Sepsis Action Taken by Nursing Laboratory Data Attestation: I reviewed the patient's lab results. 09/09/25 06:58 09/09/25 06:58 Lab Results 09/08/25 09/08/25 09/08/25 Range/Units 17:20 18:29 18:36 WBC 17.21 H (4.8-10.8) K/ul RBC 4.80 (4.70-6.10) M/uL Hgb 13.9 L (14.0-18.0) g/dL Hct 39.1 L (42.0-52.0) % MCV 81.5 (80.0-100.0) fL MCH 29.0 (25.0-34.0) pg MCHC 35.5 (32.0-36.0) g/dL RDW Std Deviation 39.1 (36.4-46.3) fL RDW Coeff of Paul 13.2 (11.5-14.5) % Plt Count 212 (130-400) K/uL MPV 9.9 (9.4-12.4) fL Immature Gran % (Auto) 0.8 % Neut % (Auto) 78.3 % Lymph % (Auto) 10.6 % [place] % (Auto) 9.9 % Eos % (Auto) 0.1 % Baso % (Auto) 0.3 % Neut # (Auto) 13.49 H (1.40-6.50) K/uL Lymph # (Auto) 1.82 (1.20-3.40) K/uL [place] # (Auto) 1.70 H (0.11-0.59) K/uL Eos # (Auto) 0.01 (0.00-0.50) K/uL Baso # (Auto) 0.06 (0.00-0.20) K/uL Immature Gran # (Auto) 0.13 (0.01-0.20) K/uL PT 12.5 H (9.0-12.0) Seconds INR 1.2 H (0.9-1.1) VBG pH (7.36-7.41) VBG pCO2 (38-50) mmHg VBG pO2 mmHg VBG HCO3 mmol/L VBG O2 Saturation % VBG Base Excess mEq/L Sodium 133 L (136-145) mmol/L Potassium 3.2 L (3.5-5.1) mmol/L Chloride 102 (98-107) mmol/L Carbon Dioxide 22 (21-32) mmol/L Anion Gap 9 (3-11) BUN 16 (6-23) mg/dl Creatinine 0.87 (0.6-1.4) mg/dl Est Cr Clr Drug Dosing 113.9 ml/min eGFR 123.57 BUN/Creatinine Ratio 18.4 (10-20) Glucose 111 H (70-99(Fasting)) mg/dl Lactate 1.0 (0.4-2.0) mmol/L Calcium 8.7 (8.6-10.3) mg/dl Magnesium 1.5 L (1.7-2.4) mg/dl Total Bilirubin 1.0 (0.2-1.0) mg/dl Direct Bilirubin 0.2 (0-0.2) mg/dl AST 25 (13-39) U/L ALT 24 (7-52) U/L Alkaline Phosphatase 48 (34-104) U/L Troponin I High Sens 6.1 (0-20) pg/ml Total Protein 7.3 (6.0-8.3) gm/dl Albumin 4.0 (3.4-5.0) gm/dl Procalcitonin 1.23 H (0-0.5) ng/ml Adenovirus (PCR) Not Detected (NotDetected) B. pertussis DNA (PCR) Not Detected (NotDetected) B.parapertussis DNA PCR Not Detected (NotDetected) C. pneumoniae DNA (PCR) Not Detected (NotDetected) Coronavirus OC43 (PCR) Not Detected (NotDetected) Coronavirus HKU1 (PCR) Not Detected (NotDetected) Coronavirus 229E (PCR) Not Detected (NotDetected) SARS-CoV-2 (PCR) Not Detected (NotDetected) Coronavirus NL63 (PCR) Not Detected (NotDetected) Human Metapneumovir PCR Not Detected (NotDetected) Influenza Type A (PCR) Not Detected (NotDetected) Influenza Type B (PCR) Not Detected (NotDetected) M. pneumoniae (PCR) Not Detected (NotDetected) Parainfluenza 1 (PCR) Not Detected (NotDetected) Parainfluenza 2 (PCR) Not Detected (NotDetected) Parainfluenza 3 (PCR) Not Detected (NotDetected) Parainfluenza 4 (PCR) Not Detected (NotDetected) RSV (PCR) Not Detected (NotDetected) Entero/Rhino (PCR) Not Detected (NotDetected) Group A Strep (PCR) NOT DETECTED (NotDetected) 09/08/25 Range/Units 20:49 WBC (4.8-10.8) K/ul RBC (4.70-6.10) M/uL Hgb (14.0-18.0) g/dL Hct (42.0-52.0) % MCV (80.0-100.0) fL MCH (25.0-34.0) pg MCHC (32.0-36.0) g/dL RDW Std Deviation (36.4-46.3) fL RDW Coeff of Paul (11.5-14.5) % Plt Count (130-400) K/uL MPV (9.4-12.4) fL Immature Gran % (Auto) % Neut % (Auto) % Lymph % (Auto) % [place] % (Auto) % Eos % (Auto) % Baso % (Auto) % Neut # (Auto) (1.40-6.50) K/uL Lymph # (Auto) (1.20-3.40) K/uL [place] # (Auto) (0.11-0.59) K/uL Eos # (Auto) (0.00-0.50) K/uL Baso # (Auto) (0.00-0.20) K/uL Immature Gran # (Auto) (0.01-0.20) K/uL PT (9.0-12.0) Seconds INR (0.9-1.1) VBG pH 7.43 H (7.36-7.41) VBG pCO2 34 L (38-50) mmHg VBG pO2 68 mmHg VBG HCO3 23 mmol/L VBG O2 Saturation 95.4 % VBG Base Excess -1.1 mEq/L Sodium (136-145) mmol/L Potassium (3.5-5.1) mmol/L Chloride (98-107) mmol/L Carbon Dioxide (21-32) mmol/L Anion Gap (3-11) BUN (6-23) mg/dl Creatinine (0.6-1.4) mg/dl Est Cr Clr Drug Dosing ml/min eGFR BUN/Creatinine Ratio (10-20) Glucose (70-99(Fasting)) mg/dl Lactate (0.4-2.0) mmol/L Calcium (8.6-10.3) mg/dl Magnesium (1.7-2.4) mg/dl Total Bilirubin (0.2-1.0) mg/dl Direct Bilirubin (0-0.2) mg/dl AST (13-39) U/L ALT (7-52) U/L Alkaline Phosphatase (34-104) U/L Troponin I High Sens (0-20) pg/ml Total Protein (6.0-8.3) gm/dl Albumin (3.4-5.0) gm/dl Procalcitonin (0-0.5) ng/ml Adenovirus (PCR) (NotDetected) B. pertussis DNA (PCR) (NotDetected) B.parapertussis DNA PCR (NotDetected) C. pneumoniae DNA (PCR) (NotDetected) Coronavirus OC43 (PCR) (NotDetected) Coronavirus HKU1 (PCR) (NotDetected) Coronavirus 229E (PCR) (NotDetected) SARS-CoV-2 (PCR) (NotDetected) Coronavirus NL63 (PCR) (NotDetected) Human Metapneumovir PCR (NotDetected) Influenza Type A (PCR) (NotDetected) Influenza Type B (PCR) (NotDetected) M. pneumoniae (PCR) (NotDetected) Parainfluenza 1 (PCR) (NotDetected) Parainfluenza 2 (PCR) (NotDetected) Parainfluenza 3 (PCR) (NotDetected) Parainfluenza 4 (PCR) (NotDetected) RSV (PCR) (NotDetected) Entero/Rhino (PCR) (NotDetected) Group A Strep (PCR) (NotDetected) Administered Medications Discontinued Medications Dexamethasone Sodium Phosphate (DexamethasonePf 10 Mg/Ml Vial) 10 mg IV NOW ONE Stop: 09/08/25 19:29 Last Admin: 09/08/25 19:47 Dose: 10 mg Documented By: luzw Piperacillin Sod/Tazobactam Sod (Zosyn) 4.5 gm in 100 mls @ 200 mls/hr IV NOW ONE; Protocol Stop: 09/08/25 18:41 Last Infusion: 09/08/25 19:15 Dose: Infused Documented By: jazlyn Admin: 09/08/25 18:43 Dose: 200 mls/hr Documented By: SHChester Acetaminophen (Ofirmev) 1,000 mg in 100 mls @ 400 mls/hr IV NOW STA Stop: 09/08/25 18:26 Last Infusion: 09/08/25 18:43 Dose: Infused Documented By: Admin: 09/08/25 18:30 Dose: 400 mls/hr Documented By: KRISTIE Clindamycin Phosphate (Cleocin/D5w) 600 mg in 50 mls @ 100 mls/hr IV NOW ONE Stop: 09/08/25 20:11 Last Infusion: 09/08/25 21:05 Dose: Infused Documented By: clw Admin: 09/08/25 20:34 Dose: 100 mls/hr Documented By: clw Sodium Chloride (Nss) 1,000 mls @ 999 mls/hr IV .Q1H1M ONE Stop: 09/08/25 20:45 Last Infusion: 09/08/25 20:50 Dose: Infused Documented By: clw Admin: 09/08/25 19:50 Dose: 999 mls/hr Documented By: clw Magnesium Sulfate/Dextrose (Magnesium Sulfate / D5w) 1 gm in 100 mls @ 100 mls/hr IV NOW STA Stop: 09/08/25 20:55 Last Infusion: 09/08/25 22:33 Dose: Infused Documented By: Admin: 09/08/25 21:07 Dose: 100 mls/hr Documented By: clw Lactated Ringer's (Lr) 1,000 mls @ 125 mls/hr IV .Q8H JUANJOSE Stop: 09/09/25 05:14 Last Infusion: 09/09/25 06:51 Dose: Infused Documented By: sprayer machine: 09/08/25 22:51 Dose: 125 mls/hr Documented By: JDF Magnesium Sulfate/Dextrose (Magnesium Sulfate / D5w) 1 gm in 100 mls @ 50 mls/hr IV ONE ONE Stop: 09/08/25 23:09 Last Infusion: 09/09/25 00:50 Dose: Infused Documented By: Admin: 09/08/25 22:51 Dose: 50 mls/hr Documented By: JDF Potassium Chloride (K Arnoldo / Wtr) 10 meq in 100 mls @ 100 mls/hr IV Q1H JUANJOSE Stop: 09/09/25 00:14 Last Infusion: 09/09/25 02:02 Dose: Infused Documented By: Admin: 09/09/25 00:48 Dose: 100 mls/hr Documented By: Infusion: 09/09/25 00:48 Dose: Infused Documented By: Admin: 09/08/25 23:16 Dose: 100 mls/hr Documented By: Infusion: 09/08/25 23:11 Dose: Infused Documented By: Admin: 09/08/25 21:30 Dose: 100 mls/hr Documented By: jazlyn Clindamycin Phosphate (Cleocin/D5w) 900 mg in 50 mls @ 100 mls/hr IV Q8H JUANJOSE Stop: 09/19/25 03:59 Last Infusion: 09/09/25 11:43 Dose: Infused Documented By: Admin: 09/09/25 11:13 Dose: 100 mls/hr Documented By: Infusion: 09/09/25 04:55 Dose: Infused Documented By: Admin: 09/09/25 04:23 Dose: 100 mls/hr Documented By: ROLAND Ioversol (Optiray 320 100ml) 93 ml IV ONCE ONE Stop: 09/08/25 21:27 Last Admin: 09/08/25 21:27 Dose: 93 ml Documented By: EVARISTO Ketorolac Tromethamine (Ketorolac Tromethamine 15 Mg/Ml Vial) 15 mg IV NOW STA Stop: 09/08/25 18:13 Last Admin: 09/08/25 18:30 Dose: 15 mg Documented By: KRISTIE Morphine Sulfate (Morphine Sulfate 2 Mg/Ml Carp) 1 mg IV Q3H PRN PRN Reason: Pain (1,2,3,4,5) & Pre PT Stop: 09/22/25 21:17 Last Admin: 09/08/25 22:58 Dose: 1 mg Documented By: ROLAND Imaging Data Radiologist's Impression: Chest X-Ray 09/08/25 18:13 Chest radiograph, one view History: Sepsis Comparison: 07/04/2025 Findings: Single AP view of the chest performed. No focal consolidation or pleural effusion. No pneumothorax. The cardiomediastinal silhouette is within normal limits. Normal pulmonary vascularity. No evidence for lymphadenopathy. No visualized bony or soft tissue abnormality. Impression: Normal chest radiograph Electronically signed by Luis Escobedo 09-08-2025 7:01 PM Discharge Plan Visit Data Chief Complaint: Dental/Oral Stated Complaint: TONSILS ARE SWELLING UP AGAIN, HERE BEFORE ED Provider: Ricardo Singh Discharge Problem: Peritonsillar cellulitis, Tonsillitis, Leukocytosis, HIV (human immunodeficiency virus infection), Pharyngitis Patient Disposition: Admitted As Inpatient Condition: Fair Discharge Instructions Interventions: ED Discharge Assessment Last Done: 09/08/25 22:12 Discharge Problem: Leukocytosis Qualifiers: Leukocytosis type: unspecified Qualified Code(s): D72.829 - Elevated white blood cell count, unspecified HIV (human immunodeficiency virus infection) Qualifiers: HIV symptom status: unspecified Qualified Code(s): Z21 - Asymptomatic human immunodeficiency virus [HIV] infection status Pharyngitis Qualifiers: Pharyngitis/tonsillitis etiology: unspecified etiology Qualified Code(s): J02.9 - Acute pharyngitis, unspecified
[2025-09-08] MEDS: ACETAMINOPHEN 1,000 MG/100 ML VIAL IV STA (18:30)
[2025-09-08] MEDS: KETOROLAC TROMETHAMINE 15 MG/ML VIAL IV STA (18:30)
[2025-09-08 18:36] LABS: Hematocrit (blood only) 39.1 % (42.0-52.0); Hemoglobin 13.9 g/dL (14.0-18.0); Immature Granulocytes # (auto) 0.13 K/uL (0.01-0.20); Immature Granulocytes % (auto) 0.8 %; Mean Corpuscular Hemoglobin 29.0 pg (25.0-34.0); Mean Corpuscular Volume 81.5 fL (80.0-100.0); Platelet Count 212 K/uL (130-400); RDW Standard Deviation 39.1 fL (36.4-46.3); Red Blood Count 4.80 M/uL (4.70-6.10); White Blood Count 17.21 K/ul (4.8-10.8)
[2025-09-08] MEDS: PIPERACILLIN/TAZOBACTAM 4.5 GM/100 ML BAG IV ONE (18:43)
[2025-09-08 18:49] LABS: Alanine Aminotransferase 24.0 U/L (7-52); Albumin Level 4.0 gm/dl (3.4-5.0); Alkaline Phosphatase 48.0 U/L (34-104); Anion Gap 9.0 (3-11); Bilirubin,Total 1.0 mg/dl (0.2-1.0); Blood Urea Nitrogen 16.0 mg/dl (6-23); Calcium 8.7 mg/dl (8.6-10.3); Carbon Dioxide 22.0 mmol/L (21-32); Chloride 102.0 mmol/L (98-107); Creatinine Clr Calc Pharmacy 113.9 ml/min; Glucose 111.0 mg/dl (70-99(Fasting)); Magnesium 1.5 mg/dl (1.7-2.4); Potassium 3.2 mmol/L (3.5-5.1); Sodium 133.0 mmol/L (136-145); Total Protein 7.3 gm/dl (6.0-8.3)
--- NOTE | 2025-09-08 19:04 | XRay Report ---
Chest radiograph, one view History: Sepsis Comparison: 07/04/2025 Findings: Single AP view of the chest performed. No focal consolidation or pleural effusion. No pneumothorax. The cardiomediastinal silhouette is within normal limits. Normal pulmonary vascularity. No evidence for lymphadenopathy. No visualized bony or soft tissue abnormality. Impression: Normal chest radiograph Electronically signed by Luis Escobedo 09-08-2025 7:01 PM
[2025-09-08 19:11] LABS: INR 1.2 (0.9-1.1); Prothrombin Time 12.5 Seconds (9.0-12.0)
[2025-09-08 19:47] LABS: Chlamydia pneumoniae PCR Not Detected (NotDetected); Coronavirus 229E PCR Not Detected (NotDetected); Coronavirus CoV-2 (COVID19)PCR Not Detected (NotDetected); Coronavirus HKU1 PCR Not Detected (NotDetected); Coronavirus NL63 PCR Not Detected (NotDetected); Coronavirus OC43PCR Not Detected (NotDetected); Human Metapneumovirus PCR Not Detected (NotDetected); Parainfluenza Virus 1 PCR Not Detected (NotDetected); Parainfluenza Virus 2 PCR Not Detected (NotDetected); Parainfluenza Virus 3 PCR Not Detected (NotDetected); Parainfluenza Virus 4 PCR Not Detected (NotDetected); Respiratory Syncytial VirusPCR Not Detected (NotDetected); Rhinovirus/Enterovirus PCR Not Detected (NotDetected)
[2025-09-08] MEDS: dexAMETHasone**PF** 10 MG/ML VIAL IV ONE (19:47)
[2025-09-08] MEDS: SODIUM CHLORIDE 0.9% 1,000 ML IV ONE (19:50)
[2025-09-08] MEDS: CLINDAMYCIN/D5W 600 MG/50 ML BAG IV ONE (20:34)
--- NOTE | 2025-09-08 20:34 | History & Physical Report ---
Date of Service September 08, 2025 Assessment & Plan (1) Sepsis: (2) Pharyngitis: (3) Tonsillitis: (4) Hypomagnesemia: (5) Hypokalemia: Plan 25-year-old male PMHx HIV, previous bilateral tonsillitis with help with tonsil abscess requiring admission 08/24/2025 until 08/25/2025 presenting for tonsil swelling. Evaluation significant for leukocytosis 17.2 with a procalcitonin of 1.23 but normal lactate. Imaging not completed at time of admission, but given presentation it has been ordered and awaiting results. SIRS criteria for sepsis met (WBC, HR). Admission for IV antibiotics. #Sepsis/Tonsillitis/Pharyngitis Recent hospital admission 08/24/2025 until 10/26/2024, was GAS positive with tonsillitis not amenable to drainage. SIRS criteria, (WBC, HR). Improved on IV abx at that time. Received Zosyn, clindamycin, and single dose of dexamethasone in ED. No further steroids at this time d/t DDI with Cabenuva, will continue IV abx. - CBC 17.2; procal 1.23; lactate WNL - CBC am - VBG's pH 7.43, pCO2 34 - CXR WNL - Soft tissue neck CT pending - NPO midnight - IVF LR @ 125 mL/hr - Zofran prn N/V - Acetaminophen prn fever/pain, morphine prn severe pain - Clindamycin IV - continue - ENT consulted - appreciate input + recs #Hypomagnesemia/Hypokalemia H/o hypomagnesemia, mag sulfate 1 g in ED. - Mg 1.5 - Mg am - Mag sulfate 1g IV - for total 2g IV - K 3.2 - BMP am - KCl 30 mEq IV #HIV Dx 05/2024; On Cabenuva monthly. DDI indicate no more than 1 time dose IV steroids. - CD4 01/2025 @ 716; percentage of cells 29% - Continue medications outpatient Dispo: Obs, med/tele VTE Prophylaxis: SCDs This document was dictated utilizing Pretty Simple. Please excuse any grammatical errors that may be secondary to use of this software. Admission and Anticipated Discharge Date Admission Date: 09/08/2025 History of Present Illness Chief Complaint: Sore throat Primary Care Provider: Victor M Serrano DO 25-year-old male PMHx HIV, previous bilateral tonsillitis with help with tonsil abscess requiring admission 08/24/2025 until 08/25/2025 presenting for tonsil swelling. 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 States that they got swollen overnight, causing him pain bilaterally. He states it was a rather quick onset, worsening within the subsequent 24 hours after it initiated. He is having very mild difficulties with breathing, stating that it "is just hurting to swallow" and is sometimes irritating. He felt feverish, did not take his temperature. States that at its worst, the pain is a 5 out of 10 on the pain scale and is presently 5 out of 10 on the pain scale. No open wounds. No drooling. Denies additional symptoms to include chest pain, palpitations, abdominal pain, N/V/D/D, numbness/tingling, LUTS, weakness, syncope, or falls. ED evaluation revealed CBC with leukocytosis 17.2, H&H 13.9/39.1; PT/INR 12.5/1.2; sodium 133, potassium 3.2, glucose 111; lactate 1; procalcitonin 1.23; magnesium 1.5; BioFire negative, strep negative; CXR WNL; EKG NSR 98 bpm.; Provided with 1L NSS, Zosyn 4.5 g IV, mag sulfate 1 g IV, ketorolac 15 mg IV, dexamethasone 10 mg IV, clindamycin 600 mg IV, and a cetaminophen 1 g IV in ED. Please see Dr. Roe's attestation for adjustments/additions to treatment plan. Allergies Allergy/AdvReac Type Severity Reaction Status Date / Time shellfish derived Allergy Severe throat Verified 08/28/25 13:56 swelling wild [place] Allergy Severe Swelling Verified 08/28/25 13:56 of Lip/Tongue/Throat Home Medications Medication Instructions Recorded Confirmed Type cholecalciferol (vitamin D3) 125 250 mcg PO DAILY 02/01/24 09/08/25 History mcg (5,000 unit) tablet (Vitamin D3) valacyclovir 1 gram tablet 1,000 mg PO BID PRN cold sore 11/07/24 09/08/25 Rx outbreak #14 tabs cabotegravir ER 600 mg/3 3 ml IM Q28D 07/04/25 09/08/25 History mL-rilpivirine ER 900 mg/3mL IM suspension,ER (Cabenuva) Past Med/Surg History Problem List Pharyngitis (Acute) HIV (human immunodeficiency virus infection) (Acute) Leukocytosis (Acute) Tonsillitis (Acute) Peritonsillar cellulitis (Acute) HIV (human immunodeficiency virus infection) Group C streptococcal infection Group A streptococcal infection (Acute) Group beta Strep positive Tonsillar abscess (Acute) Fatigue (Chronic) TSH elevation SELVIN (generalized anxiety disorder) Anxiety Electrolyte abnormality Leukocytosis (Acute) Hypomagnesemia (Acute) Hypokalemia (Acute) Acute tonsillitis (Acute) Fever (Acute) Tonsillitis Sepsis Rectal ulcer Rectal pain Encounter for pre-operative examination Vitamin D deficiency Post traumatic stress disorder (PTSD) provisional Major depressive disorder, single episode, severe without psychotic features Panic disorder Medical History HSV (herpes simplex virus) anogenital infection Rectal ulcer scant bleeding at times with pain at times with BM's Depression PTSD (post-traumatic stress disorder) Vitamin D deficiency History of seizure "[place]-had one seizure, no issues since then" Suicide attempt by hanging hospitalized at [facility] in 01/04/2023>denies any suicidal ideation at this time Surgical History History of colonoscopy Hx of tooth extraction as child Family History Grandfather (Paternal) Lung cancer Grandmother (Paternal) Myocardial infarction Other No family history of adverse response to anesthesia Denies family history of Ovarian cancer Prostate cancer Diabetes Breast cancer Colorectal cancer Stroke Social History Smoking Status: Never smoker Second Hand Exposure: No; Do You Dip or Chew Tobacco: No; Hx Alcohol Use: Yes Alcohol type: wine Hx Substance Use: No Preferred Language: Wolof Communication Ability: Effective Visual Impairment: No Limitations Hearing Ability: Normal 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 Beliefs That Will Affect Care: None marital status: Single Current Living Situation: Other Current Living Situation Comment: friends current occupational status: student How many Children do You have: 0 Feels Safe at Home: Yes Childhood Exposure to Second-Hand Smoke: No caffeine: Yes Dental Care, Regularly: Yes Physical Activity Frequency: Daily Seatbelt Use: always Sunscreen Use: Yes Gender Identity: Male Assistive Devices: None Review of Systems Review of Systems: All systems reviewed & are unremarkable except as noted in Subjective Physical Exam Physical Exam: General: No acute distress, sleeping on and off Skin: Warm and dry Head: Normocephalic, atraumatic Eyes: PERRL, conjunctivae clear, sclera non-icteric ENT: External ear and ear canal without swelling; nose atraumatic; good dentition, tongue normal appearance, pharynx erythematous/edematous, difficulty opening mouth, muffled voice Neck: Supple, no LAD Cardio: tachycardic, regular rhythm, no M/G/R, S1 and S2 normal Resp: No respiratory distress, Lungs CTA in all lobes bilaterally, no wheezes, rales, or rhonchi Abdomen: Soft, symmetric, nontender; No masses or hepatosplenomegaly; Bowel sounds normoactive MSK: No deformities; pulses palpable and equal; no edema. Neuro: Awake, alert; Sensation intact bilaterally; CN grossly intact Psych: Appropriate mood and affect; good judgement and insight. Results & Data Results & Data Vital Signs (Past 12 Hours) Vital Signs Temp Pulse Pulse Resp BP BP Pulse Ox 09/08/25 19:30 36.9 C 100 H 96/57 L 95 09/08/25 18:13 96 09/08/25 17:23 38.2 C H 09/08/25 17:18 94 H 09/08/25 17:07 18 09/08/25 17:07 37.4 C 105 H 16 97/49 L 96 O2 Del Method 09/08/25 19:30 Room Air 09/08/25 18:13 Room Air 09/08/25 17:23 09/08/25 17:18 09/08/25 17:07 09/08/25 17:07 Laboratory Results 09/08/25 18:36 Throat Culture - Pending Throat 09/08/25 18:29 Aerobic Blood Culture - Pending Blood Anaerobic Blood Culture - Pending 09/08/25 17:20 Aerobic Blood Culture - Pending Blood Anaerobic Blood Culture - Pending 09/08/25 09/08/25 09/08/25 18:36 18:29 17:20 WBC 17.21 H RBC 4.80 Hgb 13.9 L Hct 39.1 L MCV 81.5 MCH 29.0 MCHC 35.5 RDW Std Deviation 39.1 RDW Coeff of Paul 13.2 Plt Count 212 MPV 9.9 Immature Gran % (Auto) 0.8 Neut % (Auto) 78.3 Lymph % (Auto) 10.6 [place] % (Auto) 9.9 Eos % (Auto) 0.1 Baso % (Auto) 0.3 Neut # (Auto) 13.49 H Lymph # (Auto) 1.82 [place] # (Auto) 1.70 H Eos # (Auto) 0.01 Baso # (Auto) 0.06 Immature Gran # (Auto) 0.13 PT 12.5 H INR 1.2 H Sodium 133 L Potassium 3.2 L Chloride 102 Carbon Dioxide 22 Anion Gap 9 BUN 16 Creatinine 0.87 Est Cr Clr Drug Dosing 113.9 eGFR 123.57 BUN/Creatinine Ratio 18.4 Glucose 111 H Lactate 1.0 Calcium 8.7 Magnesium 1.5 L Total Bilirubin 1.0 Direct Bilirubin 0.2 AST 25 ALT 24 Alkaline Phosphatase 48 Troponin I High Sens 6.1 Total Protein 7.3 Albumin 4.0 Procalcitonin 1.23 H Adenovirus (PCR) Not Detected B. pertussis DNA (PCR) Not Detected B.parapertussis DNA PCR Not Detected C. pneumoniae DNA (PCR) Not Detected Coronavirus OC43 (PCR) Not Detected Coronavirus HKU1 (PCR) Not Detected Coronavirus 229E (PCR) Not Detected SARS-CoV-2 (PCR) Not Detected Coronavirus NL63 (PCR) Not Detected Human Metapneumovir PCR Not Detected Influenza Type A (PCR) Not Detected Influenza Type B (PCR) Not Detected M. pneumoniae (PCR) Not Detected Parainfluenza 1 (PCR) Not Detected Parainfluenza 2 (PCR) Not Detected Parainfluenza 3 (PCR) Not Detected Parainfluenza 4 (PCR) Not Detected RSV (PCR) Not Detected Entero/Rhino (PCR) Not Detected Group A Strep (PCR) NOT DETECTED Diagnostic Findings Chest X-Ray 09/08/25 18:13 Chest radiograph, one view History: Sepsis Comparison: 07/04/2025 Findings: Single AP view of the chest performed. No focal consolidation or pleural effusion. No pneumothorax. The cardiomediastinal silhouette is within normal limits. Normal pulmonary vascularity. No evidence for lymphadenopathy. No visualized bony or soft tissue abnormality. Impression: Normal chest radiograph Electronically signed by Luis Escobedo 09-08-2025 7:01 PM Medications Administered 1L NSS Zosyn 4.5 g IV Mag sulfate 1 g, IV Ketorolac 15 mg IV Dexamethasone 10 mg IV Clindamycin 60 mg IV Acetaminophen 1 g IV ECG Additional Comments: NSR 98 bpm, MI 126, QRS 82, QT/QTc 332/423, PRT 71/87/63 Code Status & VTE Plan Code Status Full PG Care Time/CCT Total # of Minutes Spent Total Time Spent with Patient: Total time spent is greater than 50% in coordination of care (as documented) at patient's floor/unit and/or counseling patient: Coding Level of Care Code 89881 INT INP/OBS CARE 3/75MIN Diagnoses Sepsis A41.9 Pharyngitis J02.9 Tonsillitis J03.90 Hypomagnesemia E83.42 Hypokalemia E87.6
[2025-09-08 21:00] LABS: Base Excess VBG -1.1 mEq/L; HCO3 VBG 23 mmol/L; Oxygen Saturation VBG 95.4 %; PCO2 VBG 34 mmHg (38-50); PO2 VBG 68 mmHg; pH VBG 7.43 (7.36-7.41)
[2025-09-08] MEDS: MAGNESIUM SULFATE / D5W 1 GM/100 ML BAG IV STA (21:07)
[2025-09-08] MEDS ORDERED: ACETAMINOPHEN 1,000 MG/100 ML VIAL IV PRN (21:18)
[2025-09-08] MEDS ORDERED: MoRPHine SULFATE 2 MG/ML CARP IV PRN (21:18)
[2025-09-08] MEDS: OPTIRAY 320 100ml IV ONE (21:27)
[2025-09-08] MEDS: POTASSIUM CHLORIDE / WTR 10 MEQ/100 ML PLCT IV SCH (21:30)
[2025-09-08] MEDS ORDERED: POLYETHYLENE (MIRALAX) 17 GM PACK PO PRN (22:21)
[2025-09-08] MEDS ORDERED: ONDANSETRON INJ 2 MG/ML 2 ML VIAL IV PRN (22:21)
[2025-09-08] MEDS: MAGNESIUM SULFATE / D5W 1 GM/100 ML BAG IV ONE (22:51)
[2025-09-08] MEDS: LACTATED RINGER'S 1,000 ML IV SCH (22:51)
[2025-09-08] MEDS: MoRPHine SULFATE 2 MG/ML CARP IV PRN (22:58)
[2025-09-09] MEDS: CLINDAMYCIN/D5W 900 MG/50 ML BAG IV SCH (04:23)
--- NOTE | 2025-09-09 06:35 | CT Scan Report ---
Exam(s): CT NECK SOFT TISSUE With Contrast IV Amt: 93 cc opti 320 EXAM: CT Neck With Intravenous Contrast CLINICAL HISTORY: Reason for exam: R/o abscess, tonsilitis. TECHNIQUE: Axial computed tomography images of the neck with intravenous contrast. CTDI is 15.83 mGy and DLP is 499.75 mGy-cm. Automated exposure control was utilized for the study. A dose lowering technique was utilized adhering to the principles of ALARA. CONTRAST: Patient received 93 cc opti 320 of IV contrast COMPARISON: No relevant prior studies available. FINDINGS: Artifact degrades image quality somewhat limiting the exam. Oropharynx: There is enlargement of the tonsillar tissues. No discrete fluid collection is seen. There is narrowing of the oropharynx.. Hypopharynx: Unremarkable. Larynx: Unremarkable epiglottis. Trachea: Unremarkable. Retropharyngeal space: Unremarkable. Submandibular/parotid glands: Unremarkable. . Thyroid: No enlarged or calcified nodules. Bones/joints: No acute fracture. Soft tissues: Unremarkable. Vasculature: No acute findings. Lymph nodes: There are enlarged cervical lymph nodes.. Lung apices: Unremarkable as visualized. IMPRESSION: There is enlargement of the tonsillar tissues with narrowing of the oropharynx.. There are enlarged cervical lymph nodes. Electronically signed by: Kareem Barger MD 09/08/25 23:13 PM
[2025-09-09 07:54] LABS: Hematocrit (blood only) 40.8 % (42.0-52.0); Hemoglobin 13.8 g/dL (14.0-18.0); Mean Corpuscular Hemoglobin 28.2 pg (25.0-34.0); Mean Corpuscular Volume 83.3 fL (80.0-100.0); Platelet Count 206 K/uL (130-400); RDW Standard Deviation 41.5 fL (36.4-46.3); Red Blood Count 4.90 M/uL (4.70-6.10); White Blood Count 26.78 K/ul (4.8-10.8)
[2025-09-09 08:09] LABS: Anion Gap 7.0 (3-11); Blood Urea Nitrogen 11.0 mg/dl (6-23); Calcium 8.5 mg/dl (8.6-10.3); Carbon Dioxide 22.0 mmol/L (21-32); Chloride 108.0 mmol/L (98-107); Creatinine Clr Calc Pharmacy 149.4 ml/min; Glucose 136.0 mg/dl (70-99(Fasting)); Magnesium 2.2 mg/dl (1.7-2.4); Potassium 4.2 mmol/L (3.5-5.1); Sodium 137.0 mmol/L (136-145)
[2025-09-09 08:10] LABS: Immature Granulocytes # (auto) 0.98 K/uL (0.01-0.20); Immature Granulocytes % (auto) 3.7 %; Toxic Vacuolation 1+
--- NOTE | 2025-09-09 08:35 | Hospitalist Progress Note ---
Date of Service September 09, 2025 Assessment & Plan (1) Tonsillitis: (2) Pharyngitis: (3) HIV (human immunodeficiency virus infection): Plan: 25-year-old male PMHx HIV, previous bilateral tonsillitis with help with tonsil abscess requiring admission 08/24/2025 until 08/25/2025 presenting for tonsil swelling. Evaluation significant for leukocytosis 17.2 with a procalcitonin of 1.23 but normal lactate. Imaging not completed at time of admission, but given presentation it has been ordered and awaiting results. SIRS criteria for sepsis met (WBC, HR). Admission for IV antibiotics. #Sepsis/Tonsillitis/Pharyngitis Recent hospital admission 08/24/2025 until 10/26/2024, was GAS positive with tonsillitis not amenable to drainage. SIRS criteria, (WBC, HR). Improved on IV abx at that time. Received Zosyn, clindamycin, and single dose of dexamethasone in ED. No further steroids at this time d/t DDI with Cabenuva, will continue IV abx. - WBC 26.8; procal 1.23; lactate WNL - CBC am - VBG's pH 7.43, pCO2 34 - CXR WNL - Soft tissue neck CT notable for tonsillar tissues with narrowing of the oropharynx and lymphadenopathy. - NPO midnight - IVF LR @ 125 mL/hr - Zofran prn N/V - Acetaminophen prn fever/pain, morphine prn severe pain - Clindamycin IV - continue #Hypomagnesemia/Hypokalemia, resolved H/o hypomagnesemia, s/p mag sulfate 1 g in ED. - Mg 2.2 today; s/p Mag sulfate 1g IV - for total 2g IV - K 4.2; s/p KCl 30 mEq IV - AM BMP #HIV Dx 05/2024; On Cabenuva monthly. DDI indicate no more than 1 time dose IV steroids. - CD4 01/2025 @ 716; percentage of cells 29% - Continue medications outpatient Dispo: Obs, med/tele VTE Prophylaxis: SCDs Admission and Anticipated Discharge Date Admission Date: September 08, 2025 Subjective No overnight events. Pt seen and examined this AM at bedside. He stated he does not feel much better than yesterday and wanted to sleep. Denies fever, chills, trouble breathing, CP, abdominal pain. Review of Systems Review of Systems: per HPI Physical Exam Physical Exam: GA: well groomed, well nourished in no apparent distress. AAOx3 HEENT: head normocephalic, atraumatic. EOMI RESP: vesicular breath sounds b/l. No wheezes, rhonchi, or rales CARDIOVASCULAR: S1 and S2 heard. No murmurs, rubs, or gallops. Radial pulses 2+ b/l RRR MSK: no gross abnormalities or focal deficits SKIN: warm, dry, no edema PSYCH: appropriate mood and affect NEURO: no focal deficits. speech fluent Results & Data Results & Data Vital Signs (Past 12 Hours) Vital Signs Temp Pulse Pulse Resp BP BP Pulse Ox 09/09/25 07:50 36.2 C L 76 18 107/66 97 09/09/25 07:17 74 09/09/25 04:35 75 95/62 L 99 09/09/25 03:08 36.9 C 86 16 93/52 L 94 09/08/25 22:31 86 09/08/25 22:21 36.7 C 85 18 103/65 99 09/08/25 22:00 93 H 20 107/65 98 09/08/25 21:16 96 H 09/08/25 21:08 93 H 16 109/61 95 O2 Del Method 09/09/25 07:50 Room Air 09/09/25 07:17 09/09/25 04:35 Room Air 09/09/25 03:08 Room Air 09/08/25 22:31 09/08/25 22:21 Room Air 09/08/25 22:00 Room Air 09/08/25 21:16 09/08/25 21:08 Room Air Resident Activity Tracking Resident Involvement: Resident Care Provided Care Provided: Adult Hospital Medicine
[2025-09-09 11:10] VITALS: RESP 16; TEMP 97.9
[2025-09-09 14:48] VITALS: O2SAT 98
[2025-09-09 17:09] VITALS: BP 93/52; PULSE 79
--- NOTE | 2025-09-09 18:01 | Discharge Summary ---
Date of Service September 09, 2025 Admission HPI Per Admitting Provider 25-year-old male PMHx HIV, previous bilateral tonsillitis with help with tonsil abscess requiring admission 08/24/2025 until 08/25/2025 presenting for tonsil swelling. 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 States that they got swollen overnight, causing him pain bilaterally. He states it was a rather quick onset, worsening within the subsequent 24 hours after it initiated. He is having very mild difficulties with breathing, stating that it "is just hurting to swallow" and is sometimes irritating. He felt feverish, did not take his temperature. States that at its worst, the pain is a 5 out of 10 on the pain scale and is presently 5 out of 10 on the pain scale. No open wounds. No drooling. Denies additional symptoms to include chest pain, palpitations, abdominal pain, N/V/D/D, numbness/tingling, LUTS, weakness, syncope, or falls. ED evaluation revealed CBC with leukocytosis 17.2, H&H 13.9/39.1; PT/INR 12.5/1.2; sodium 133, potassium 3.2, glucose 111; lactate 1; procalcitonin 1.23; magnesium 1.5; BioFire negative, strep negative; CXR WNL; EKG NSR 98 bpm.; Provided with 1L NSS, Zosyn 4.5 g IV, mag sulfate 1 g IV, ketorolac 15 mg IV, dexamethasone 10 mg IV, clindamycin 600 mg IV, and acetaminophen 1 g IV in ED. Please see Dr. Roe's attestation for adjustments/additions to treatment plan. Principal Diagnosis Pharyngitis Discharge Exam GA: well groomed, well nourished in no apparent distress. AAOx3 HEENT: head normocephalic, atraumatic. EOMI. normal external ear anatomy. patent nares. edematous tonsils in oropharynx RESP: vesicular breath sounds b/l. No wheezes, rhonchi, or rales CARDIOVASCULAR: S1 and S2 heard. No murmurs, rubs, or gallops. Radial pulses 2+ b/l RRR MSK: no gross abnormalities or focal deficits SKIN: warm, dry, no edema PSYCH: appropriate mood and affect NEURO: no focal deficits. speech fluent Discharge Data Allergies Allergy/AdvReac Type Severity Reaction Status Date / Time shellfish derived Allergy Severe throat Verified 08/28/25 13:56 swelling wild [place] Allergy Severe Swelling Verified 08/28/25 13:56 of Lip/Tongue/Throat Consultations 09/08/25 19:42 ED Decision to Admit Stat Ordered Studies 09/08/25 21:08 CT soft tissue neck w con Stat Hospital Course (1) Tonsillitis: (2) Pharyngitis: (3) HIV (human immunodeficiency virus infection): 25-year-old male PMHx HIV, previous bilateral tonsillitis with help with tonsil abscess requiring admission 08/24/2025 until 08/25/2025 presenting for tonsil swelling. Evaluation significant for leukocytosis 17.2 with a procalcitonin of 1.23 but normal lactate. Imaging not completed at time of admission, but given presentation it has been ordered and awaiting results. SIRS criteria for sepsis met (WBC, HR). Admission for IV antibiotics. #Sepsis/Tonsillitis/Pharyngitis Recent hospital admission 08/24/2025 until 10/26/2024, was GAS positive with tonsillitis not amenable to drainage. SIRS criteria, (WBC, HR). Improved on IV abx at that time. Received Zosyn, clindamycin, and single dose of dexamethasone in ED. No further steroids at this time d/t DDI with Cabenuva, will continue IV abx. - WBC 26.8; procal 1.23; lactate WNL - CBC am - VBG's pH 7.43, pCO2 34 - CXR WNL - Soft tissue neck CT notable for tonsillar tissues with narrowing of the oropharynx and lymphadenopathy. - Acetaminophen prn fever/pain, - Ibuprofen 600mg tid for severe pain - Clindamycin 300mg qid for 10 days - close f/u with PCP and ENT #Hypomagnesemia/Hypokalemia, resolved H/o hypomagnesemia, s/p mag sulfate 1 g in ED. - Mg 2.2 today; s/p Mag sulfate 1g IV - for total 2g IV - K 4.2; s/p KCl 30 mEq IV #HIV Dx 05/2024; On Cabenuva monthly. DDI indicate no more than 1 time dose IV steroids. - CD4 01/2025 @ 716; percentage of cells 29% - Continue medications outpatient Total Time Total Time Spent Total Time Spent (In Minutes): <30 Discharge Plan Discharge Items Patient Disposition: Home - Self-Care Reason For Visit: TONSILITIS/PHARYNGITIS Discharge Diagnosis: Tonsillitis Activity: Resume your previous activity Non-emergency contact: Primary Care Provider Call non-emergency contact if: your symptoms worsen, your pain is worsening and you have a fever Follow-up/Referrals: Victor M Serrano DO [Primary Care Provider] - 09/23/25 11:30 am Bandar Huitron MD [Physician] - Diet: Regular Addtl Attending Provider Instructions: You were admitted to the hospital for tonsillits/pharyngitis. You were treated with IV antibiotics. You were deemed stable for discharge. Medications Your medication list has been reviewed and reconciled. An updated list is included with your discharge paperwork; please review this list closely and make note of any changes. We sent a prescription for Clindamycin (antibiotic) to your pharmacy. Take this medication 300mg four times daily for 10 days. Take your medications as instructed; do not skip a dose. Make sure all of your doctors know every medicine you are taking (including [id number] medicines, vitamins, and supplements). Call your PCP before taking any new medicines because some of these may interact with your current medications, or may make your symptoms worse. Follow-up appointments: Make a follow-up appointment with your PCP within the next week. It is very important that you follow up with them shortly after discharge from the hospital. We are also trying to arrange close follow up with ENT. Keep all your follow-up appointments as already scheduled. If you cannot make an appointment, notify your provider. Please bring a copy of this discharge summary with you to your next office appointment so that your provider can review it at that time and stay updated on your hospitalization and potential changes in your care. Contact your PCP if your symptoms return or worsen. Call 911 or go to the ER if you experience any of the following: Sudden, severe abdominal pain or nausea/vomiting Severe chest pain, or chest pain that radiates (moves) to your jaw or arm Sudden, severe shortness of breath or difficulty breathing Thank you for allowing us to participate in your care. Pending Studies at Discharge: No Stand-Alone Forms: [facility], Smoking Cessation Medications and DC Order Prescriptions: New clindamycin HCl 300 mg capsule 300 mg PO QID 10 Days Qty: 40 0RF Continued valacyclovir 1 gram tablet 1,000 mg PO BID PRN (Reason: cold sore outbreak) Qty: 14 2RF Cabenuva 600 mg/3 mL- 900 mg/3 mL suspension,extended release 3 ml IM Q28D cholecalciferol (vitamin D3) [Vitamin D3] 125 mcg (5,000 unit) Tablet 250 mcg PO DAILY Discharge Orders: Discharge Order (Routine); Ordered 09/09/25 Ordered By: Luis Nguyen Admission Data Admit Date/Time: 09/08/25 21:18 Attending Provider: Ernesto Gordon Admit Provider: Earnestine Roe Primary Care Provider: Victor M Serrano Other Providers: Earnestine Roe Other Interventions: Discharge Summary Assessment (RN) Last Done: 09/09/25 17:09 Supervising Physician Co-Signing Physician Notes I personally examined the patient and verified all wynn points of history and exam, discussed case, and agree with decision making with Dr Nguyen Throat feeling better. Would like to go home. Discussed with ENTthey suspect that he will need tonsillectomy given recurrences. Patient expresses good understanding of this. Vitals noted, in general he is awake and alert pleasant no distress. HEENT normocephalic atraumatic mucous membranes moist. Tonsils slightly asymmetric left larger than right but generally 4+ but there is patent airway thin exudate. No hot potato voice. No stridor. He is on room air and comfortable. Breathing unlabored no accessory muscle use. Recurrent pharyngitis/tonsillitistechnically septic on admission, although I do wonder how much of the leukocytosis is related to the pharyngitis and inflammatory response and how much may have been steroid effectcertainly his bump from 17-27 today is going to be steroid effect given how much better he feels. Since he feels better, has no airway compromise, is able to swallow, and wants to go homequite reasonable to send him home. P.o. clindamycin. ENT will be in contact with him to set up follow-up appointment and discuss surgery. Otherwise as above. Resident Activity Tracking Resident Involvement: Resident Care Provided Care Provided: Adult Hospital Medicine
--- NOTE | 2025-09-09 18:16 | Billing Data ---
Date of Service September 09, 2025 Coding Level of Care Code 13868 IN/OBS DISCH 30 MIN/LESS
--- NOTE | 2025-09-09 22:42 | Electrocardiogram Report ---
Test Reason : Blood Pressure : */* mmHG Vent. Rate : 98 BPM Atrial Rate : 98 BPM P-R Int : 126 ms QRS Dur : 82 ms QT Int : 332 ms P-R-T Axes : 71 87 63 degrees QTcB Int : 423 ms Normal sinus rhythm Normal ECG When compared with ECG of 26-Mar-2023 18:36, T wave inversion no longer evident in Anterior leads Confirmed by Chuy David ([id number]) on 09/09/2025 10:41:38 PM Referred By: REFERRED SELF Confirmed By: Chuy David
== END 2025-09-09 17:36 | disposition home or self-care (01) ==
LOC: 2N 17:06 → ED 17:06 → SUATTDRO 21:18 → 2N 22:12